=== PATIENT | female | born 1995 | race Caucasian/White ===

== ENCOUNTER 2018-03-22 08:59 | Outpatient (CLI) | payer OTHER, BC, SELFPAY ==
[2018-03-22 09:36] LABS: Abs Immature Grans 0.01 k/cumm (0.0-0.09); Absolute Basophil Count 0.01 k/cumm (0.0-0.2); Absolute Eosinophil Count 0.05 k/cumm (0.0-0.7); Absolute Lymphocyte Count 1.91 k/cumm (1.2-3.4); Absolute Monocyte Count 0.48 k/cumm (0.11-0.7); Absolute Neutrophil Count 3.91 k/cumm (1.2-6.7); Basophils % 0.2; Eosinophils % 0.8; HCT 40.7 % (36.0-46.0); HGB 13.7 g/dL (12.0-15.5); Immature Grans % 0.2; Mean Corp. HGB Concentration 33.7 g/dL (32.0-36.0); Mean Corpuscular Hemoglobin 28.9 pg (27.0-33.0); Mean Corpuscular Volume 85.9 fL (80-95); Monocytes % 7.5; Neutrophils % 61.3; Platelet Count 224 x1000/uL (130-400); RBC 4.74 m/cumm (4.00-5.20); RBC Distribution Width 12.6 % (11.7-14.6); White Blood Cell Count 6.37 k/cumm (4.4-10.8)
[2018-03-22 10:43] LABS: ESR 17 MM/HR (0-20)
[2018-03-22 11:32] LABS: ALT 36 U/L (12-78); AST 14 U/L (15-37); Albumin 4.1 g/dL (3.4-5.0); Alkaline Phosphatase 120 U/L (46-116); Anion Gap 10.2 mmol/L (3-11); BUN 13 mg/dL (7-18); Bilirubin, Total 0.3 mg/dL (0.2-1.0); CO2 26.8 mmol/L (21.0-32.0); CREATININE 0.94 mg/dL (0.55-1.02); Calcium 8.9 mg/dL (8.5-10.1); Chloride 103 mmol/L (98-107); Glucose 83 mg/dL (70-100); Potassium 4.1 mmol/L (3.5-5.1); Sodium 140 mmol/L (136-145); TSH (W/Ref FT4) 2.56 uIU/mL (0.358-3.74); Total Protein 7.4 g/dL (6.4-8.2)
[2018-03-24 12:19] LABS: IgA 167 mg/dL (85-499); Interpretation SEE COMMENTS; Tissue Transglutaminase IgA 2.6 U/mL (<4.0)
== END 2018-03-22 09:19 ==
PROVIDERS: PCP Nurse Practitioner Family; Visit Provider Family Medicine
DX: R19.7 Diarrhea, unspecified (principal)
CPT/HCPCS: 36415; 80053; 82784; 83516; 85652; 84443; 85025

== ENCOUNTER 2018-04-03 16:32 | Outpatient (REF) | payer OTHER, BC, SELFPAY ==
--- NOTE | 2018-04-03 13:30 | PAPFT_PTH ---
PATIENT: Oriana Augustin LOC: [facility] U#:[id number] AGE/SX: 23/F ROOM: RE04/03/[address]: SARAHI Mcgrath : 1995 BED: DIS: 04/03/2018 SPEC #: [id number] RECD: 04/03/18 18:16 STATUS: GARETH REJennifer #: [id number] NURIA: 04/03/18 13:[address]: Ronda Boyd DEPT: [facility] Cytology RECD BY: Ade Harrell ENTERED: 04/03/18 18:16 SP TYPE: PAPFT CHERYL DR: SARAHI Arevalo Tissues: 1 - CX/ENDOCX FOR PAP SMEARS Procedures: PAP THIN PREP/UVM Screening Comments: [id number]
== END 2018-04-03 16:52 ==
LOC: LBN 16:32
PROVIDERS: PCP Nurse Practitioner Family; Visit Provider Nurse Practitioner Family
DX: Z12.4 Encounter for screening for malignant neoplasm of cervix (principal); K58.9 Irritable bowel syndrome, unspecified
CPT/HCPCS: 87505; 88142; 83630; 87177

== ENCOUNTER 2018-06-04 20:32 | Outpatient (REF) | payer OTHER, BC, SELFPAY ==
[2018-06-04 21:38] LABS: Bilirubin Negative (Negative); Blood Trace-lysed (Negative); Clarity Clear; Glucose Negative (Negative); Ketones Negative (Negative); Leukocyte Esterase Negative (Negative); Nitrite Negative (Negative); Specific Gravity 1.025 (1.005-1.025); Urobilinogen 0.2 EU/dL (Up TO 0.2); pH 5.5 (5-8)
[2018-06-04 21:49] LABS: Bacteria Rare HPF (Negative); C & S Indicated? No; Casts Negative LPF (Negative); Crystals Negative HPF (Negative); Epithelial Cells Rare HPF (Negative); Mucus Negative (Negative); RBC 0-2 (0-2); WBC 0-2 HPF (0-5)
== END 2018-06-04 20:52 ==
LOC: LBN 20:32
PROVIDERS: PCP Nurse Practitioner Family; Visit Provider Nurse Practitioner Family
DX: R31.9 Hematuria, unspecified (principal)
CPT/HCPCS: 81003; 81015

== ENCOUNTER 2018-07-16 09:07 | Outpatient (CLI) | payer OTHER, SELFPAY ==
[2018-07-16 13:04] LABS: HCT 39.4 % (36.0-46.0); HGB 13.3 g/dL (12.0-15.5); Mean Corp. HGB Concentration 33.8 g/dL (32.0-36.0); Mean Corpuscular Hemoglobin 29.8 pg (27.0-33.0); Mean Corpuscular Volume 88.3 fL (80-95); Mean Platelet Volume 10.9 fL (8.0-11.0); Platelet Count 225 x1000/uL (130-400); RBC 4.46 m/cumm (4.00-5.20); RBC Distribution Width 12.3 % (11.7-14.6); White Blood Cell Count 7.24 k/cumm (4.4-10.8)
[2018-07-16 13:46] LABS: Ferritin 57 ng/mL (8-388)
== END 2018-07-16 09:27 ==
PROVIDERS: PCP Nurse Practitioner Family
DX: K62.5 Hemorrhage of anus and rectum (principal); R42 Dizziness and giddiness
CPT/HCPCS: 36415; 85027; 82728

== ENCOUNTER 2018-07-23 11:23 | Outpatient (CLI) | payer OTHER, BC, SELFPAY ==
[2018-07-23 11:56] LABS: HCT 40.3 % (36.0-46.0); HGB 13.7 g/dL (12.0-15.5)
== END 2018-07-23 11:43 ==
PROVIDERS: PCP Nurse Practitioner Family
DX: K62.5 Hemorrhage of anus and rectum (principal)
CPT/HCPCS: 36415; 85014; 85018

== ENCOUNTER 2018-09-22 17:12 | Emergency (ER) | payer OTHER, SELFPAY ==
[2018-09-22 17:48] VITALS: BP 126/78; PULSE 104; RESP 18; TEMP 36.7; O2SAT 95
--- NOTE | 2018-09-22 17:58 | W.ED.GENAD ---
Discharge Plan Disposition Patient Disposition: HOME Condition: Improving Discharge Details Chief Complaint: RespSymp Clinical Impression: Acute bronchitis Reason For Visit: cough and fever Primary Care Provider: Nishi Hoffman ED Provider: Aditya Cee Home Meds and New Rx's Prescriptions: New benzonatate [Tessalon Perles] 100 mg capsule 100 mg PO TID PRN (Reason: cough) Qty: 20 RF: 0 azithromycin 250 mg tablet 250 mg PO DAILY 4 Days Qty: 4 RF: 0 Continued norethindrone (contraceptive) 0.35 mg tablet 0.35 mg PO DAILY Qty: 84 RF: 3 hydroxyzine HCl 25 mg tablet 25 mg PO as directed PRNRF: 0 buspirone 10 mg tablet 10 mg PO BID RF: 0 amitriptyline 150 mg tablet 150 mg PO DAILY Qty: 90 RF: 3 Adult 50+ Probiotic 4 billion cell capsule PO DAILY RF: 0 nystatin 100,000 unit/gram powder 1 applic TP BID Qty: 60 RF: 2 docusate sodium [Stool Softener] 100 mg capsule 100 mg PO DAILY RF: 0 multivitamin [One Daily Multivitamin] tablet 1 tab PO DAILY RF: 0 Natural Fiber Supplement 3.4 gram powder in packet PO DAILY RF: 0 rizatriptan 5 mg tablet 5 mg PO PRN Qty: 12 RF: 5 Discharge Instructions Instructions: Acute Bronchitis (ED) Additional Instructions: [facility] with [facility] if not improving in 5-7 days time. Home to rest this evening. Small, frequent sips of fluids to maintain hydration. May use albuterol as instructed during times of illness. Tessalon as needed for cough. May use a teaspoon of honey at bedtime for cough Take azithromycin as prescribed. Return to the ER for any acute concern Medical Decision Making 23-year-old female presents from home complaining of 7 days of cough, congestion, fever and chills. 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 [place] worse today. Did not of syncope or any other concerning findings. Her exam is unremarkable. Consistent with viral URI with mild bouts of bronchospasm/paroxysms of cough. Cannot exclude underlying atypical bacterial infection. I will give her an albuterol inhaler, Tessalon Perles, and place her on a course of azithromycin HPI General Mode of arrival: ambulatory. Date/Time Provider Initiated Documentation: 09/22/18 17:50. Limitations to Documentation: no limitations. Information obtained by: patient. History of Present Illness 23 year old F presents to the emergency department with the chief complaint of Cough and fever times 7 days, described as moderate, Quality is described as aching, and is localized to the chest. Patient reports no radiation. Patient started experiencing this day(s) and it has been intermittent. No relieving factors improve symptom(s), No exacerbating factors reported . Patient notes fever/chills; denies nausea/vomiting and shortness of breath. Patient did receive the following treatments prior to arrival, none Related Data Home Medications Medication Instructions Recorded Confirmed amitriptyline 150 mg tablet 150 mg PO DAILY #90 tab-cap 03/21/18 09/22/18 norethindrone (contraceptive) 0.35 0.35 mg PO DAILY #84 tab 04/03/18 09/22/18 mg tablet lactobacillus combination no.9 4 PO DAILY cap 04/07/18 09/10/18 billion cell capsule hydroxyzine HCl 25 mg tablet 25 mg PO as directed PRN tab-cap 06/04/18 09/22/18 rizatriptan 5 mg tablet 5 mg PO PRN #12 tab-cap 06/23/18 09/22/18 nystatin 100,000 unit/gram topical 1 applic TP BID #60 gm 07/15/18 09/10/18 powder buspirone 10 mg tablet 10 mg PO BID tab 08/06/18 09/22/18 docusate sodium 100 mg capsule 100 mg PO DAILY 08/06/18 09/22/18 multivitamin tablet 1 tab PO DAILY 09/10/18 09/22/18 psyllium husk (aspartame) 3.4 gram PO DAILY 09/10/18 09/10/18 oral powder packet azithromycin 250 mg PO DAILY 4 Days #4 tab 09/22/18 benzonatate [Tessalon Perles] 100 mg PO TID PRN #20 cap 09/22/18 Previous Rx's Medication Instructions Recorded amitriptyline 150 mg tablet 150 mg PO DAILY #90 tab-cap 03/21/18 norethindrone (contraceptive) 0.35 0.35 mg PO DAILY #84 tab 04/03/18 mg tablet rizatriptan 5 mg tablet 5 mg PO PRN #12 tab-cap 06/23/18 nystatin 100,000 unit/gram topical 1 applic TP BID #60 gm 07/15/18 powder azithromycin 250 mg PO DAILY 4 Days #4 tab 09/22/18 benzonatate [Tessalon Perles] 100 mg PO TID PRN #20 cap 09/22/18 Allergies Allergy/AdvReac Type Severity Reaction Status Date / Time No Known Drug Allergies Allergy Verified 09/22/18 17:52 General Stated Complaint: RespSymp REYNA: 4 Review of Systems Review of Systems 6 systems reviewed and otherwise negative [facility] Medical History Obstructive sleep apnea (Chronic ~2018) Generalized anxiety disorder (Chronic) Migraine headache without aura (Chronic) Anal fissure (Inactive) IBS (irritable bowel syndrome) (Resolved) Kidney stone (Chronic) Surgical History Arthroplasty of knee (12/29/14) Tooth extraction Family History Mother No problems noted. Father Alcohol abuse Sister No problems noted. Brother No problems noted. Grandfather Diabetes Grandfather No problems noted. Grandmother No problems noted. Grandmother Depression Maternal History Neoplasm Paternal History No problems noted. Social History Smoking/Tobacco Use Status: Current-Occasional Tobacco Type: cigars Alcohol Intake: never Drug use: Never Substance use type: does not use Household members: other Details: 2 Pets and animals: Yes Pets and animals: dog(s) Duration: 15-30 minutes/day Frequency: 3-4 times per week Jeri/Congregation: [employer] Special jeri needs: No Seatbelt use: always Do you feel safe at home: Yes Do you feel safe in your relationship?: Yes Female Reproductive History Menstrual control method: pills Exam Narrative Exam Narrative: GEN: awake, alert, oriented 3. Pleasant, well groomed, interactive. HEAD: Normocephalic, atraumatic ENT: Mucous membranes moist, oropharynx unremarkable, External ear exam unremarkable EYES: PERRL, EOMI NECK: Full ROM, no HAFSA, no menigismus CHEST/RESP: Nontender, clear to auscultation bilateral, no wheeze/rhonchi/rales, cough noted CARDIOVASCULAR: RRR, no murmur, rub jericho. 2+ Rad pulse bilateral ABDOMEN: Soft, nontender, no mass. +Bowel sounds EXT: Full ROM, no edema, no rash Neuro: Grossly normal neurologic exam, conversant, interactive. Psych: Speech fluent, thoughts congruent, affect normal Course Vital Signs Temperature 36.7 C 09/22/18 17:48 Pulse 104 H 09/22/18 17:48 Respiratory Rate 18 09/22/18 17:48 Blood Pressure 126/78 09/22/18 17:48 Pulse Oximetry 95 09/22/18 17:48 Temperature 36.7 C 09/22/18 17:48 Temperature Source Tympanic 09/22/18 17:48 Pulse 104 H 09/22/18 17:48 Respiratory Rate 18 09/22/18 17:48 Respiratory Effort 09/22/18 17:56 Blood Pressure 126/78 09/22/18 17:48 Blood Pressure Position Sitting 09/22/18 17:48 Pulse Oximetry 95 09/22/18 17:48 Oxygen Delivery Method Room Air 09/22/18 17:48 Oxygen Flow Rate 0 09/22/18 17:48
--- NOTE | 2018-09-22 18:01 | ED.GENADUL_ITS ---
Discharge Plan Disposition Patient Disposition: HOME Condition: Improving Discharge Details Chief Complaint: RespSymp Clinical Impression: Acute bronchitis Reason For Visit: cough and fever Primary Care Provider: Nishi Hoffman ED Provider: Aditya Cee Home Meds and New Rx's Prescriptions: New benzonatate [Tessalon Perles] 100 mg capsule 100 mg PO TID PRN (Reason: cough) Qty: 20 RF: 0 azithromycin 250 mg tablet 250 mg PO DAILY 4 Days Qty: 4 RF: 0 Continued norethindrone (contraceptive) 0.35 mg tablet 0.35 mg PO DAILY Qty: 84 RF: 3 hydroxyzine HCl 25 mg tablet 25 mg PO as directed PRNRF: 0 buspirone 10 mg tablet 10 mg PO BID RF: 0 amitriptyline 150 mg tablet 150 mg PO DAILY Qty: 90 RF: 3 Adult 50+ Probiotic 4 billion cell capsule PO DAILY RF: 0 nystatin 100,000 unit/gram powder 1 applic TP BID Qty: 60 RF: 2 docusate sodium [Stool Softener] 100 mg capsule 100 mg PO DAILY RF: 0 multivitamin [One Daily Multivitamin] tablet 1 tab PO DAILY RF: 0 Natural Fiber Supplement 3.4 gram powder in packet PO DAILY RF: 0 rizatriptan 5 mg tablet 5 mg PO PRN Qty: 12 RF: 5 Discharge Instructions Instructions: Acute Bronchitis (ED) Additional Instructions: [facility] if not improving in 5-7 days time. Home to rest this evening. Small, frequent sips of fluids to maintain hydration. May use albuterol as instructed during times of illness. Tessalon as needed for cough. May use a teaspoon of honey at bedtime for cough Take azithromycin as prescribed. Return to the ER for any acute concern Medical Decision Making 23-year-old female presents from home complaining of 7 days of cough, congestion, fever and chills. 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 [place] worse today. Did not of syncope or any other concerning findings. Her exam is unremarkable. Consistent with viral URI with mild bouts of bronchospasm/paroxysms of cough. Cannot exclude underlying atypical bacterial infection. I will give her an albuterol inhaler, Tessalon Perles, and place her on a course of azithromycin HPI General Mode of arrival: ambulatory . Date/Time Provider Initiated Documentation: 09/22/18 17:50 . Limitations to Documentation: no limitations . Information obtained by: patient . History of Present Illness 23 year old F presents to the emergency department with the chief complaint of Cough and fever times 7 days, described as moderate, Quality is described as aching, and is localized to the chest. Patient reports no radiation. Patient started experiencing this day(s) and it has been intermittent. No relieving factors improve symptom(s), No exacerbating factors reported . Patient notes fever/chills; denies nausea/vomiting and shortness of breath. Patient did receive the following treatments prior to arrival, none Related Data Home Medications Medication Instructions Recorded Confirmed amitriptyline 150 mg tablet 150 mg PO DAILY #90 tab-cap 03/21/18 09/22/18 norethindrone (contraceptive) 0.35 0.35 mg PO DAILY #84 tab 04/03/18 09/22/18 mg tablet lactobacillus combination no.9 4 PO DAILY cap 04/07/18 09/10/18 billion cell capsule hydroxyzine HCl 25 mg tablet 25 mg PO as directed PRN tab-cap 06/04/18 09/22/18 rizatriptan 5 mg tablet 5 mg PO PRN #12 tab-cap 06/23/18 09/22/18 nystatin 100,000 unit/gram topical 1 applic TP BID #60 gm 07/15/18 09/10/18 powder buspirone 10 mg tablet 10 mg PO BID tab 08/06/18 09/22/18 docusate sodium 100 mg capsule 100 mg PO DAILY 08/06/18 09/22/18 multivitamin tablet 1 tab PO DAILY 09/10/18 09/22/18 psyllium husk (aspartame) 3.4 gram PO DAILY 09/10/18 09/10/18 oral powder packet azithromycin 250 mg PO DAILY 4 Days #4 tab 09/22/18 benzonatate [Tessalon Perles] 100 mg PO TID PRN #20 cap 09/22/18 Previous Rx's Medication Instructions Recorded amitriptyline 150 mg tablet 150 mg PO DAILY #90 tab-cap 03/21/18 norethindrone (contraceptive) 0.35 0.35 mg PO DAILY #84 tab 04/03/18 mg tablet rizatriptan 5 mg tablet 5 mg PO PRN #12 tab-cap 06/23/18 nystatin 100,000 unit/gram topical 1 applic TP BID #60 gm 07/15/18 powder azithromycin 250 mg PO DAILY 4 Days #4 tab 09/22/18 benzonatate [Tessalon Perles] 100 mg PO TID PRN #20 cap 09/22/18 Allergies Allergy/AdvReac Type Severity Reaction Status Date / Time No Known Drug Allergies Allergy Verified 09/22/18 17:52 General Stated Complaint: RespSymp REYNA: 4 Review of Systems Review of Systems 6 systems reviewed and otherwise negative [facility] Medical History Obstructive sleep apnea (Chronic ~2018) Generalized anxiety disorder (Chronic) Migraine headache without aura (Chronic) Anal fissure (Inactive) IBS (irritable bowel syndrome) (Resolved) Kidney stone (Chronic) Surgical History Arthroplasty of knee (12/29/14) Tooth extraction Family History Mother No problems noted. Father Alcohol abuse Sister No problems noted. Brother No problems noted. Grandfather Diabetes Grandfather No problems noted. Grandmother No problems noted. Grandmother Depression Maternal History Neoplasm Paternal History No problems noted. Social History Smoking/Tobacco Use Status: Current-Occasional Tobacco Type: cigars Alcohol Intake: never Drug use: Never Substance use type: does not use Household members: other Details: 2 Pets and animals: Yes Pets and animals: dog(s) Duration: 15-30 minutes/day Frequency: 3-4 times per week Jeri/Catholic: Pentecostal Special jeri needs: No Seatbelt use: always Do you feel safe at home: Yes Do you feel safe in your relationship?: Yes Female Reproductive History Menstrual control method: pills Exam Narrative Exam Narrative: GEN: awake, alert, oriented 3. Pleasant, well groomed, interactive. HEAD: Normocephalic, atraumatic ENT: Mucous membranes moist, oropharynx unremarkable, External ear exam unremarkable EYES: PERRL, EOMI NECK: Full ROM, no HAFSA, no menigismus CHEST/RESP: Nontender, clear to auscultation bilateral, no wheeze/rhonchi/rales, cough noted CARDIOVASCULAR: RRR, no murmur, rub jericho. 2+ Rad pulse bilateral ABDOMEN: Soft, nontender, no mass. +Bowel sounds EXT: Full ROM, no edema, no rash Neuro: Grossly normal neurologic exam, conversant, interactive. Psych: Speech fluent, thoughts congruent, affect normal Course Vital Signs Temperature 36.7 C 09/22/18 17:48 Pulse 104 H 09/22/18 17:48 Respiratory Rate 18 09/22/18 17:48 Blood Pressure 126/78 09/22/18 17:48 Pulse Oximetry 95 09/22/18 17:48 Temperature 36.7 C 09/22/18 17:48 Temperature Source Tympanic 09/22/18 17:48 Pulse 104 H 09/22/18 17:48 Respiratory Rate 18 09/22/18 17:48 Respiratory Effort 09/22/18 17:56 Blood Pressure 126/78 09/22/18 17:48 Blood Pressure Position Sitting 09/22/18 17:48 Pulse Oximetry 95 09/22/18 17:48 Oxygen Delivery Method Room Air 09/22/18 17:48 Oxygen Flow Rate 0 09/22/18 17:48
[2018-09-22] MEDS: Azithromycin 250 MG TAB 500 MG PO (18:19)
[2018-09-22] MEDS: Albuterol HFA 8 GM 60 PUFF INH IH (18:19)
== END 2018-09-22 18:25 | disposition home or self-care (01) ==
PROVIDERS: Emergency Provider Emergency Medicine; PCP Nurse Practitioner Family
DX: J21.9 Acute bronchiolitis, unspecified (principal)
CPT/HCPCS: 81025; 99283

== ENCOUNTER 2019-04-15 16:26 | Outpatient (REF) | payer OTHER, SELFPAY | END 2019-04-15 16:46 | LOC: LBN 16:26 | PROVIDERS: PCP Nurse Practitioner Family; Visit Provider Nurse Practitioner Family | DX: R35.0 Frequency of micturition (principal) | CPT/HCPCS: 87086 ==

== ENCOUNTER 2019-04-27 11:06 | Outpatient (CLI) | payer OTHER, SELFPAY ==
[2019-04-27 14:35] LABS: HCG Quant, Pregnancy 1932 mIU/mL (1-3)
== END 2019-04-27 11:26 ==
PROVIDERS: PCP Nurse Practitioner Family; Visit Provider Nurse Practitioner Family
DX: Z32.01 Encounter for pregnancy test, result positive (principal)
CPT/HCPCS: 36415; 84702

== ENCOUNTER 2019-06-15 14:16 | Outpatient (CLI) | payer OTHER, SELFPAY ==
[2019-06-15 14:56] LABS: Abs Immature Grans 0.02 k/cumm (0.0-0.09); Absolute Basophil Count 0.01 k/cumm (0.0-0.2); Absolute Eosinophil Count 0.04 k/cumm (0.0-0.7); Absolute Lymphocyte Count 1.64 k/cumm (1.2-3.4); Absolute Monocyte Count 0.61 k/cumm (0.11-0.7); Absolute Neutrophil Count 6.38 k/cumm (1.2-6.7); Basophils % 0.1; Eosinophils % 0.5; HCT 34.7 % (36.0-46.0); HGB 12.1 g/dL (12.0-15.5); Immature Grans % 0.2; Lymphocytes % 18.9; Mean Corp. HGB Concentration 34.9 g/dL (32.0-36.0); Mean Corpuscular Hemoglobin 30.1 pg (27.0-33.0); Mean Corpuscular Volume 86.3 fL (80-95); Mean Platelet Volume 10.9 fL (8.0-11.0); Neutrophils % 73.3; Platelet Count 234 x1000/uL (130-400); RBC 4.02 m/cumm (4.00-5.20); RBC Distribution Width 12.1 % (11.7-14.6)
[2019-06-15 15:37] LABS: TSH (W/Ref FT4) 2.09 uIU/mL (0.36-3.74)
[2019-06-16 10:54] LABS: Hepatitis B Surface Ag Negative (Negative); Hepatitis C Ab w Rflx HCV PCR Negative (Negative)
[2019-06-16 11:07] LABS: Rubella IgG Ab (UVM) Positive (See Note); Varicella IgG Antibody Negative (See Note)
[2019-06-16 12:41] LABS: HIV-1/2 Ag & Ab Screen Negative (Negative)
[2019-06-16 15:14] LABS: Syphilis Total Ab w/Reflex Nonreactive (Nonreactive)
== END 2019-06-15 14:36 ==
PROVIDERS: PCP Nurse Practitioner Family; Visit Provider Advanced Practice Midwife
DX: Z34.91 Encounter for supervision of normal pregnancy, unspecified, first trimester (principal); Z11.59 Encounter for screening for other viral diseases; Z11.4 Encounter for screening for human immunodeficiency virus [HIV]; Z01.84 Encounter for antibody response examination
CPT/HCPCS: 36415; 86787; 86803; 86850; 86900; 86901; 87340; 87389; 84443; 85025; 86762; 86780

== ENCOUNTER 2019-06-15 20:11 | Outpatient (REF) | payer OTHER, SELFPAY ==
[2019-06-15 16:46] LABS: *AMPHETAMINES SCREEN URINE Negative (Negative); *BARBITURATES SCREEN URINE Negative (Negative); *BENZODIAZEPINES SCREEN URINE Negative (Negative); Cannabinoids THC Negative (Negative); Cocaine Screen,Urine Negative (Negative); METHADONE URINE SCREEN Negative (Negative); OPIATES URINE SCREEN Negative (Negative); Tricyclic Antidepressants Negative (Negative)
[2019-06-16 14:30] LABS: Chlamydia Result Negative (Negative)
[2019-06-16 15:18] LABS: GC Result Negative (Negative)
[2019-06-19 08:18] LABS: Buprenorphine Negative; Norbuprenorphine Negative
== END 2019-06-15 20:31 ==
LOC: LBN 20:11
PROVIDERS: PCP Nurse Practitioner Family; Visit Provider Advanced Practice Midwife
DX: Z34.91 Encounter for supervision of normal pregnancy, unspecified, first trimester (principal); Z11.3 Encounter for screening for infections with a predominantly sexual mode of transmission
CPT/HCPCS: 80307; 87491; 87591; 87086

== ENCOUNTER 2019-06-16 01:52 | Outpatient (CLI) | payer OTHER, SELFPAY ==
[2019-06-16 09:15] LABS: Glucose,1 Hr (Glucola) 158 mg/dL (80-140)
== END 2019-06-16 02:12 ==
PROVIDERS: PCP Nurse Practitioner Family; Visit Provider Advanced Practice Midwife
DX: Z34.91 Encounter for supervision of normal pregnancy, unspecified, first trimester (principal)
CPT/HCPCS: 82950

== ENCOUNTER 2019-06-17 08:39 | Outpatient (CLI) | payer OTHER, SELFPAY | END 2019-06-17 08:59 | PROVIDERS: PCP Nurse Practitioner Family; Visit Provider Advanced Practice Midwife | DX: Z34.91 Encounter for supervision of normal pregnancy, unspecified, first trimester (principal) | CPT/HCPCS: 36415; 82951 ==

== ENCOUNTER 2019-06-26 07:48 | Outpatient (CLI) | payer OTHER, SELFPAY | END 2019-06-26 08:08 | LOC: LOS 07:49 → LBO 08:22 | PROVIDERS: PCP Nurse Practitioner Family; Visit Provider Advanced Practice Midwife | DX: Z34.91 Encounter for supervision of normal pregnancy, unspecified, first trimester (principal) | CPT/HCPCS: 36415; 82951 ==

== ENCOUNTER 2019-06-29 07:31 | Outpatient (CLI) | payer OTHER, SELFPAY | END 2019-06-29 07:51 | PROVIDERS: PCP Nurse Practitioner Family; Visit Provider Advanced Practice Midwife | DX: Z34.90 Encounter for supervision of normal pregnancy, unspecified, unspecified trimester (principal); Z68.36 Body mass index [BMI] 36.0-36.9, adult | CPT/HCPCS: 36415; 83036 ==

== ENCOUNTER 2019-08-11 01:57 | Outpatient (CLI) | payer BC, SELFPAY ==
--- NOTE | 2019-08-11 14:03 | DI.US_ITS ---
EXAM: US OB 2-3 TRIMESTER W MOD CLINICAL HISTORY: , Z34.90 TECHNIQUE: Ultrasound performed using standard protocol. COMPARISON: PELVIS ULTRASOUND *(P) from 09/01/2012 FINDINGS: The examination was severely limited due to position. cranial structures cannot be evaluated due to the lie of the fetus. Therefore biparietal diame ter and head circumference could not be used for evaluation of estimated gestational age. Placenta is posterior. Fetus is in the cephalic presentation. heart rate is 152 BPM. Amniotic fluid is within normal limits visually. The cranial facial structures could not be visualized. Four-chamber heart could not be visualized. The patient is scheduled to return on August 14 to complete survey. IMPRESSION: Incomplete survey due to the lie of the fetus. The patient is scheduled to return on August 14.
== END 2019-08-11 02:17 ==
PROVIDERS: PCP Nurse Practitioner Family; Visit Provider Advanced Practice Midwife
DX: Z34.92 Encounter for supervision of normal pregnancy, unspecified, second trimester (principal)
CPT/HCPCS: 76805

== ENCOUNTER 2019-08-14 02:11 | Outpatient (CLI) | payer BC, SELFPAY ==
--- NOTE | 2019-08-14 10:52 | DI.US_ITS ---
EXAM: US OB F/U FACIAL/LVOT/RVOT CLINICAL HISTORY: TO COMPLETE SURVEY, F/U HEAD/FACE TECHNIQUE: Ultrasound performed using standard protocol. COMPARISON: US OB 2-3 TRIMESTER W MOD from 08/11/2019 FINDINGS: Ob ultrasound performed utilizing limited 2nd trimester protocol to complete recent anomaly scr een, cardiac anatomy was confirmed on today's examination with 4 chamber heart view completed. cardiac rate 141 BPM. Posterior fossa structures not ideally visualized on today's examination but no gross abnormality of the cerebellum. Rescanning for facial structures and remainder of the intracranial scan as planned f or August 21.
== END 2019-08-14 02:31 ==
PROVIDERS: PCP Nurse Practitioner Family; Visit Provider Advanced Practice Midwife
DX: Z34.92 Encounter for supervision of normal pregnancy, unspecified, second trimester (principal); Z36.2 Encounter for other antenatal screening follow-up
CPT/HCPCS: 76815

== ENCOUNTER 2019-08-21 03:50 | Outpatient (CLI) | payer BC, SELFPAY ==
--- NOTE | 2019-08-21 | DI.US_ITS ---
EXAM: US OB F/U FACIAL/LVOT/RVOT CLINICAL HISTORY: F/U SURVEY, F/U FACIAL AND HEAD TECHNIQUE: Ultrasound performed using standard protocol. COMPARISON: US OB F/U FACIAL/LVOT/RVOT from 08/14/2019 FINDINGS: There is a single intrauterine gestation. The fetus is in the cephalic presentation. Ventricles are unremarkable. The nose, lips and palate are unremarkable. The placenta is posterior. Estimated gestational age is 22 weeks.
== END 2019-08-21 04:10 ==
PROVIDERS: PCP Nurse Practitioner Family; Visit Provider Advanced Practice Midwife
DX: Z34.92 Encounter for supervision of normal pregnancy, unspecified, second trimester (principal); Z36.2 Encounter for other antenatal screening follow-up; Z3A.22 22 weeks gestation of pregnancy
CPT/HCPCS: 76815

== ENCOUNTER 2019-10-06 10:34 | Outpatient (CLI) | payer BC, SELFPAY ==
[2019-10-06 13:39] LABS: HCT 32.9 % (36.0-46.0); Mean Corp. HGB Concentration 33.4 g/dL (32.0-36.0); Mean Corpuscular Hemoglobin 28.5 pg (27.0-33.0); Mean Corpuscular Volume 85.2 fL (80-95); Mean Platelet Volume 10.3 fL (8.0-11.0); Platelet Count 237 x1000/uL (130-400); RBC 3.86 m/cumm (4.00-5.20); RBC Distribution Width 12.9 % (11.7-14.6); White Blood Cell Count 10.08 k/cumm (4.4-10.8)
[2019-10-06 13:48] LABS: Glucose,1 Hr (Glucola) 145 mg/dL (80-140)
== END 2019-10-06 10:54 ==
PROVIDERS: PCP Nurse Practitioner Family; Visit Provider Advanced Practice Midwife
DX: Z34.93 Encounter for supervision of normal pregnancy, unspecified, third trimester (principal)
CPT/HCPCS: 36415; 82950; 85027; 86850; 90384

== ENCOUNTER 2019-11-02 20:44 | Observation (INO) | payer BC, SELFPAY ==
[2019-11-02 21:20] LABS: Fetal Fibronectin Negative (Negative)
== END 2019-11-02 21:30 | disposition home or self-care (01) ==
PROVIDERS: Admitting Provider Advanced Practice Midwife; PCP Nurse Practitioner Family; Visit Provider Advanced Practice Midwife
DX: O47.03 False labor before 37 completed weeks of gestation, third trimester (principal); Z3A.32 32 weeks gestation of pregnancy
CPT/HCPCS: 59025; 82731

== ENCOUNTER 2019-11-27 13:56 | Outpatient (CLI) | payer BC, SELFPAY ==
[2019-11-27 15:39] LABS: ROM Plus Negative
== END 2019-11-27 14:16 ==
PROVIDERS: PCP Nurse Practitioner Family; Visit Provider Advanced Practice Midwife
DX: Z03.71 Encounter for suspected problem with amniotic cavity and membrane ruled out (principal); Z3A.35 35 weeks gestation of pregnancy
CPT/HCPCS: 84112; 59025

== ENCOUNTER 2019-12-01 01:06 | Outpatient (CLI) | payer BC, SELFPAY ==
--- NOTE | 2019-12-01 08:30 | DI.US_ITS ---
EXAM: US OB ALYX WEIGHT CLINICAL HISTORY: ,BMI,Z68.36,Z34.90. TECHNIQUE: Transabdominal obstetrical ultrasound performed. COMPARISON: No exams were available for comparison FINDINGS: Number of fetuses: One. position: Vertex. heart rate: bpm. Placental location: Posterior. Grade 2. No evidence of previa. EFW: 2813 grms 40 % Composite Age: 36 weeks 1 day EDC: 28 December 2019 Heart Rate: 124BPM Amniotic fluid index: 15.6 cm. Amount of fluid is within normal limits. BIOMETRY: BPD: 90 millimeters, 36 weeks 4 days HC: 319 millimeters, 35 weeks 6 days AC: 319 millimeters, 35 weeks 6 days FL: 70 millimeters, 36 weeks 0 days IMPRESSION: 1. size and weight are within the expected range. DATA REPOSITORY:
== END 2019-12-01 01:26 ==
PROVIDERS: PCP Nurse Practitioner Family; Visit Provider Advanced Practice Midwife
DX: Z34.93 Encounter for supervision of normal pregnancy, unspecified, third trimester (principal); Z68.36 Body mass index [BMI] 36.0-36.9, adult; Z3A.36 36 weeks gestation of pregnancy
CPT/HCPCS: 76816

== ENCOUNTER 2019-12-01 01:42 | Outpatient (CLI) | payer BC, SELFPAY ==
[2019-12-01 17:24] LABS: *AMPHETAMINES SCREEN URINE Negative (Negative); *BARBITURATES SCREEN URINE Negative (Negative); *BENZODIAZEPINES SCREEN URINE Negative (Negative); Cannabinoids THC Negative (Negative); Cocaine Screen,Urine Negative (Negative); METHADONE URINE SCREEN Negative (Negative); OPIATES URINE SCREEN Negative (Negative)
[2019-12-01 17:27] LABS: Tricyclic Antidepressants Negative (Negative)
--- NOTE | 2019-12-02 13:20 | W.DIABETESNO ---
Date of service: 12/01/19 Time of Service: 14:00 Diabetes Note NOTE: Oriana is at 36 weeks with GDM. Met in office today to review her blood sugar and diet logs. She is following [id number] kcal GDM meal plan with consistent carbohydrAtes at meals and snacks. No formal exercise at this time. She does not take medications for GDM, well controlled with diet at this time. She is checking BS QID, fasting typically below 95 mg/dl, post prandial range from 110-130 mg/dl. She is doing well overall, very involved in helping her track her GDM and eating healthy. Reviewed diet log and provided advice on meal planning/problem solving. Encouraged her to continue with QID monitoring and follow GDM meal Plan provided. Education material on GDM and BS logs provided. We also reviewed benefits of breast feeding for herself and her baby. Action Plan: Oriana will continue to follow Diabetic Meal plan and will continue to check BS QID and bring to her appt. Time Spent in Nutritional Counseling and Treatment: 10 min spent face to face
[2019-12-05 07:24] LABS: Buprenorphine Negative; Norbuprenorphine Negative
== END 2019-12-01 02:02 ==
PROVIDERS: Advanced Practice Midwife; PCP Nurse Practitioner Family; Visit Provider Advanced Practice Midwife
DX: Z34.93 Encounter for supervision of normal pregnancy, unspecified, third trimester (principal); Z36.85 Encounter for antenatal screening for Streptococcus B
CPT/HCPCS: 80307; 87081; G0108

== ENCOUNTER 2019-12-03 23:08 | Outpatient (CLI) | payer BC, SELFPAY | END 2019-12-03 23:28 | PROVIDERS: PCP Nurse Practitioner Family; Visit Provider Advanced Practice Midwife | DX: V89.2XXA Person injured in unspecified motor-vehicle accident, traffic, initial encounter; Z03.79 Encounter for other suspected maternal and fetal conditions ruled out; Z3A.36 36 weeks gestation of pregnancy | CPT/HCPCS: 59025; G0378 ==

== ENCOUNTER 2019-12-04 16:59 | Outpatient (CLI) | payer BC, SELFPAY | END 2019-12-04 17:19 | PROVIDERS: PCP Nurse Practitioner Family; Visit Provider Advanced Practice Midwife | DX: O24.419 Gestational diabetes mellitus in pregnancy, unspecified control (principal); Z3A.36 36 weeks gestation of pregnancy | CPT/HCPCS: 85461; 86850; 86900; 86901; 86870 ==

== ENCOUNTER 2019-12-28 16:26 | Outpatient (CLI) | payer BC, SELFPAY | END 2019-12-28 16:46 | PROVIDERS: PCP Nurse Practitioner Family; Visit Provider Advanced Practice Midwife | DX: N89.8 Other specified noninflammatory disorders of vagina (principal); O24.410 Gestational diabetes mellitus in pregnancy, diet controlled; Z3A.40 40 weeks gestation of pregnancy | CPT/HCPCS: 59025; 87480; 87510; 87660 ==

== ENCOUNTER 2019-12-29 14:32 | Inpatient (IN) | payer BC, SELFPAY ==
[2019-12-29] MEDS: miSOPROStol 25 MCG TAB PO ×2 (17:03→21:12)
[2019-12-29] MEDS: Normal Saline Flush 10 ML SYR (18:15)
[2019-12-29 18:29] LABS: HGB 11.8 g/dL (12.0-15.5); Mean Corp. HGB Concentration 33.7 g/dL (32.0-36.0); Mean Corpuscular Hemoglobin 28.2 pg (27.0-33.0); Mean Corpuscular Volume 83.5 fL (80-95); Mean Platelet Volume 11.4 fL (8.0-11.0); Platelet Count 200 x1000/uL (130-400); RBC 4.19 m/cumm (4.00-5.20); White Blood Cell Count 9.35 k/cumm (4.4-10.8)
[2019-12-29] MEDS: Normal Saline 100 ML 200 ML (20:40)
[2019-12-29] MEDS: metroNIDAZOLE 500 MG TAB PO (21:11)
[2019-12-29] MEDS: Zolpidem 10 MG TAB PO (21:12)
[2019-12-29] MEDS: Cyproheptadine 4 MG TAB PO (21:12)
[2019-12-30] MEDS: Penicillin G POT. 3,000,000 UNITS in Normal Saline 50 ML 100 UNITS IVPB ×5 (01:13→20:31)
[2019-12-30] MEDS: Normal Saline Flush 10 ML SYR IVP ×4 (01:13→20:27)
[2019-12-30] MEDS: miSOPROStol 25 MCG TAB PO (02:30)
[2019-12-30] MEDS: miSOPROStol 25 MCG TAB 50 MCG PO (06:40)
[2019-12-30] MEDS: Acetaminophen 325 MG TAB 650 MG PO (07:33)
[2019-12-30] MEDS: Aspirin 81 MG CHEW CH (08:01)
[2019-12-30] MEDS: Magnesium Oxide 400 MG TAB PO (08:02)
[2019-12-30] MEDS: metroNIDAZOLE 500 MG TAB PO ×2 (08:02→20:27)
[2019-12-30] MEDS: Docusate Sodium 100 MG CAP 200 MG PO (08:03)
[2019-12-30 08:13] LABS: COVID-19 RT-PCR UVMMC Result Negative (Negative)
[2019-12-30] MEDS: miSOPROStol 50 MCG TAB PO ×2 (10:46→15:49)
[2019-12-30] MEDS: Zolpidem 10 MG TAB PO (20:27)
[2019-12-30] MEDS: Cyproheptadine 4 MG TAB PO (20:27)
[2019-12-31] MEDS: Penicillin G POT. 3,000,000 UNITS in Normal Saline 50 ML 100 UNITS IVPB ×3 (00:31→09:25)
[2019-12-31] MEDS: Normal Saline Flush 10 ML SYR IVP ×2 (00:32→08:18)
[2019-12-31] MEDS: Lactated Ringers 250 ML 500 ML IV (04:39)
[2019-12-31] MEDS: Bupivacaine 0.25% Pres-Free 10 ML VIAL EP (04:40)
[2019-12-31] MEDS: Lactated Ringers 500 ML IV (05:02)
[2019-12-31] MEDS: Oxytocin/Normal Saline 30 UNITS/500 ML BAG IV (06:18)
[2019-12-31] MEDS: Naloxone 0.4 MG/ML VIAL IVP ×2 (08:17→10:52)
[2019-12-31] MEDS: Lidocaine 1% Multi-Dose 20 ML VIAL IJ ×2 (11:00→11:25)
[2019-12-31] MEDS: Methylergonovine 0.2 MG/ML VIAL (11:25)
[2019-12-31] MEDS: Hamamelis Leaf/Glycerin 100 EACH BOX PR (13:12)
[2019-12-31] MEDS: Ibuprofen 600 MG TAB PO (19:40)
[2019-12-31] MEDS: Acetaminophen 325 MG TAB 650 MG PO (19:40)
[2019-12-31] MEDS: Cyproheptadine 4 MG TAB PO (23:15)
[2020-01-01] MEDS: Ibuprofen 600 MG TAB PO ×4 (02:41→22:02)
[2020-01-01] MEDS: Acetaminophen 325 MG TAB 650 MG PO ×4 (02:41→22:01)
[2020-01-01 06:47] LABS: HCT 31.2 % (36.0-46.0); Mean Corp. HGB Concentration 32.1 g/dL (32.0-36.0); Mean Corpuscular Hemoglobin 27.2 pg (27.0-33.0); Mean Platelet Volume 11.5 fL (8.0-11.0); Platelet Count 165 x1000/uL (130-400); RBC 3.67 m/cumm (4.00-5.20); RBC Distribution Width 15.2 % (11.7-14.6); White Blood Cell Count 8.67 k/cumm (4.4-10.8)
[2020-01-01] MEDS: Docusate Sodium 100 MG CAP PO (08:46)
[2020-01-01] MEDS: Varicella Virus Vaccine (Live) 1 ML IM (09:10)
[2020-01-01] MEDS: Cyproheptadine 4 MG TAB PO (22:01)
[2020-01-02] MEDS: Acetaminophen 325 MG TAB 650 MG PO (08:53)
[2020-01-02] MEDS: Ibuprofen 600 MG TAB PO (08:54)
== END 2020-01-02 14:00 | disposition home or self-care (01) | DRG 805 ==
PROVIDERS: Advanced Practice Midwife; Admitting Provider Advanced Practice Midwife; PCP Nurse Practitioner Family; Visit Provider Advanced Practice Midwife
DX: O24.420 Gestational diabetes mellitus in childbirth, diet controlled (principal); O75.3 Other infection during labor; Z37.0 Single live birth; O70.0 First degree perineal laceration during delivery; O69.81X0 Labor and delivery complicated by cord around neck, without compression, not applicable or unspecified; O99.824 Streptococcus B carrier state complicating childbirth; Z3A.40 40 weeks gestation of pregnancy; B96.89 Other specified bacterial agents as the cause of diseases classified elsewhere; O75.89 Other specified complications of labor and delivery; I95.2 Hypotension due to drugs; T41.3X5A Adverse effect of local anesthetics, initial encounter; Z23 Encounter for immunization
CPT/HCPCS: 36415; 85027; 86850; 86900; 86901; U0003; J2210; J2310; J2540; J3490

== ENCOUNTER 2020-02-12 02:15 | Outpatient (CLI) | payer BC, SELFPAY ==
[2020-02-12 10:59] LABS: GTT Comment See Comments
== END 2020-02-12 02:35 ==
PROVIDERS: PCP Nurse Practitioner Family; Visit Provider Advanced Practice Midwife
DX: O24.419 Gestational diabetes mellitus in pregnancy, unspecified control (principal)
CPT/HCPCS: 36415; 82951

== ENCOUNTER 2020-12-29 18:14 | Outpatient (REF) | payer BC, SELFPAY ==
[2020-12-29 13:09] LABS: Anion Gap 9.5 mmol/L (3-11); BUN 12 mg/dL (7-18); CO2 27.5 mmol/L (21.0-32.0); CREATININE 0.7 mg/dL (0.55-1.02); Calcium 8.7 mg/dL (8.5-10.1); Calculated LDL 138 mg/dL (<100); Chloride 105 mmol/L (98-107); Cholesterol 206 mg/dL (<200); Glucose 84 mg/dL (74-106); HDL Cholesterol 36 mg/dL (40-60); Potassium 4.3 mmol/L (3.5-5.1); Sodium 142 mmol/L (136-145); Triglyceride 163 mg/dL (<150)
[2020-12-29 13:11] LABS: Hemoglobin A1C 5.3 % (<5.7)
== END 2020-12-29 18:15 | disposition home or self-care (01) ==
LOC: LBN 18:14
PROVIDERS: PCP Nurse Practitioner Family; Visit Provider Nurse Practitioner Family
DX: Z00.00 Encounter for general adult medical examination without abnormal findings (principal); Z13.1 Encounter for screening for diabetes mellitus; Z13.220 Encounter for screening for lipoid disorders
CPT/HCPCS: 80048; 80061; 83036

== ENCOUNTER 2021-01-17 14:34 | Outpatient (REF) | payer BC, SELFPAY | END 2021-01-17 14:35 | disposition home or self-care (01) | LOC: LBN 14:34 | PROVIDERS: PCP Nurse Practitioner Family; Visit Provider Nurse Practitioner Family | DX: R30.0 Dysuria (principal) | CPT/HCPCS: 87086 ==

== ENCOUNTER 2021-01-22 23:56 | Emergency (ER) | payer BC, SELFPAY ==
--- NOTE | 2021-01-23 | DI.CT_ITS ---
Exam(s) CT RENAL COLIC WO EXAM: CT RENAL COLIC WO CLINICAL HISTORY: right and midline flank and back pain. TECHNIQUE: Imaging Protocol: Axial computed tomography images with coronal and sagittal reformatted images were created and reviewed CONTRAST MATERIAL: Intravenous: none Oral: None COMPARISON: CT ABD PELVIS WO CONTRAST from 09/07/2015 FINDINGS: VISUALIZED LUNG BASES: No nodules nor pleural effusions evident. ABDOMEN: There is no ascites. LIVER: There are no obvious focal hepatic lesions evident of this noninfused study. GALLBLADDER/BILIARY: No obvious gallbladder pathology. CBD is not dilated. PANCREAS: No evidence of pancreatic mass nor dilatation of the pancreatic duct. SPLEEN: Spleen is not enlarged. No obvious intrasplenic lesions. Splenule noted to the spleen is ag ain noted. ADRENALS: There are no significant adrenal masses. KIDNEYS:No cysts evident. No solid renal masses. No calculi nor hydronephrosis. . ABDOMINAL AORTA: Abdominal aorta is not enlarged. LYMPH NODES: There is no retroperitoneal nor paraaortic adenopathy. ABDOMINAL WALL: No evidence of significant anterior abdominal wall hernia. GI: There is no evidence of bowel obstruction, free air, nor abscess. PELVIS: LYMPH NODES: There is no intrapelvic nor inguinal adenopathy. GI: No evidence of appendicitis.No evidence of sigmoid diverticulitis. URINARY BLADDER: No calculi nor obvious masses evident REPRODUCTIVE: Uterus and ovaries appear age-appropriate. There is no free fluid in the cul-de-sac. OSSEOUS: No significant osseous lesions. However, the there is significant increase density on the iliac side of both sacroiliac joints consis tent with sacroiliitis. There is no ankylosis. These findings have progressed from prior study of 2 016. IMPRESSION: 1. No radiopaque urinary tract calculi and no evidence of urinary tract obstruction. 2. Bilateral sacroiliitis narrow evident. No ankylosis. RADIATION DOSE DELIVERED: 1,348.84mGy.cm Total DLP DATA REPOSITORY: All CT scans at this facility are submitted to the National Radiology Data Registry (NRDR) Dose Index Registry (DIR) with the [employer] (ACR). RADIATION OPTIMIZATION: All CT scans at this facility use at least one of these dose optimization te chniques: automated exposure control; mA and/or kV adjustment per patient size (includes targeted exa ms where dose is matched to clinical indication); or iterative reconstruction.
[2021-01-23 00:02] VITALS: BP 121/43; PULSE 90; RESP 17; TEMP 36.7; O2SAT 96
--- NOTE | 2021-01-23 00:08 | ED.GENADUL_ITS ---
Discharge Plan Disposition Patient Disposition: HOME Condition: Good Discharge Details Clinical Impression: Abdominal pain Primary Care Provider: Nishi Hoffman ED Provider: Caden Silva Home Meds and New Rx's Prescriptions: Continued prenat.vits,noemy,yll-htdt-ixxmi Tablet 1 tab PO DAILY RF: 0 sertraline 50 mg tablet 75 mg PO DAILY RF: 0 sulfamethoxazole-trimethoprim [Bactrim DS] 800-160 mg tablet 1 tab PO BID Qty: 14 RF: 0 Adult 50 Plus Probiotic 4 billion cell capsule 4 cell PO DAILY RF: 0 docusate sodium [Stool Softener] 100 mg capsule 100 mg PO DAILY PRNRF: 0 magnesium oxide 500 mg capsule 500 mg PO DAILY RF: 0 cyproheptadine 4 mg tablet 8 mg PO QHS Qty: 90 RF: 5 norethindrone (contraceptive) 0.35 mg tablet 0.35 mg PO DAILY Qty: 84 RF: 3 Discharge Instructions Instructions: Abdominal Pain (ED) Additional Instructions: At this time your CAT scan is reassuring. No signs of significant abnormality requiring surgical intervention. There is questionable slight thickening of your distal colon, however as your symptoms do not appear to be in that area at all it is likely secondary to under distention/having no stool in it. You are being sent home with pain pills to be used only as needed. If you notice any worsening of your symptoms, or any new symptoms such as vomiting, diarrhea, fever, chills, shortness of breath, chest pain, numbness, weakness, or fainting , please return immediately to the emergency department for reevaluation. Please follow up with your primary care provider as soon as possible for reassessment and reevaluation. As always, it was a pleasure participating in your medical care today. Referrals: Nishi Hoffman, YASMIN [Primary Care Provider] - Medical Decision Making This is a 25-year-old female with a past medical history of IBS, migraines, high cholesterol, previous kidney stone, who presents today for evaluation of flank and back pain. Patient states that for the last 3 days she has had mild midline back pain that slightly radiates through to the anterior abdomen and on the right flank. She denies any dysuria or hematuria at this time. About 6 days ago she was evaluated for mild frequency and dysuria at her OB office, at that time she was started on Bactrim and has completed the dose. This evening the pain got notably worse and she came to the ER for further assessment. She denies vomiting or diarrhea. She denies any vaginal discharge. She states that this feels different than her previous kidney stone. No other complaints at this time. No other modifying factors. Exam demonstrates mild right-sided CVA tenderness, no abdominal tenderness to speak of otherwise so. Differential includes urolithiasis, less likely pyelonephritis. Symptoms appear inconsistent with aneurysm or mesenteric ischemia. We will gently rehydrate, give Toradol, get a CAT scan/renal colic CT, monitor closely and reassess. 1:35 AM Laboratory work-up is returned notably unremarkable, no significant elevated white count, left shift or bandemia. Electrolytes stable, renal function good. Urinalysis shows mild amount of RBCs in the urine, no other significant abnormalities. No evidence of infection. CT scan negative for significant abnormality. No evidence of kidney stone or gallbladder pathology. The patient does have evidence of an under distended descending and sigmoid colon, with questionable thickening but likely secondary to underdistention. Repeat exam shows no signs of an acute surgical abdomen, patient's pain is notably improved but she still does have a mild ache. She does not want anything additional for pain at this time. Repeat abdominal exam shows no reproducible pain in the lower abdominal quadrants mid or upper abdominal quadrants at this time. Uncertain as to the exact etiology, but differential still remains for potentially passed kidney stone, mild cystitis. Symptoms are inconsistent with colitis though clinically at this time, additionally the patient states very clearly that this does not feel anything like her IBS with the past, or mid abdominal pain or lower abdominal pain. This time patient stable for discharge. We will give a few Leeds's to go home with in case the pain does come back, however I did discuss with her that return or worsening symptoms may require further evaluation. Patient will follow closely with PCP. Discussed red flags which to return. I have extensively reviewed the treatment plan and discharge instructions with the patient. I have addressed all patient concerns at this time. The patient was made aware of what symptoms to monitor for that would warrant a return to the emergency department. Discussed the plan with the patient, they demonstrate verbal understanding and agreement with our assessment and plan at this time. The documentation in this chart was dictated using [employer] dictation software. Please excuse any dictation errors. FINDINGS: Lungs: Lung bases clear. Liver: Liver dome partially excluded from view. Otherwise grossly unremarkable u nenhanced liver. Gallbladder and bile ducts: Normal appearing gallbladder. No calcified gallstones. No biliary dilatation. Pancreas: Grossly unremarkable unenhanced pancreas. Spleen: Grossly unremarkable unenhanced spleen. Adrenal glands: Normal appearing adrenal glands. Kidneys and ureters: Grossly unremarkable unenhanced kidneys. No radiopaque renal calculi or hydronephrosis. No obstructing ureteral stones. Stomach and bowel: No oral contrast. Stomach partially decompressed. No small bowel dilatation to suggest obstruction. Normal-appearing cecum, ascending colon, and transverse colon. Descending colon, sigmoid colon, and rectum almost completely evacuated of fecal material, collapsed, and apparently thick-walled. Artifact of incomplete distention? Acute segmental colitis/proctocolitis? No evidence of focal acute diverticulitis. Appendix: Normal appendix. Intraperitoneal space: No gross ascites or free air. Vasculature: Normal caliber abdominal aorta. Lymph nodes: No pathologically enlarged mesenteric, retroperitoneal, or pelvic sidewall lymph nodes. Urinary bladder: Urinary bladder partially collapsed but grossly unremarkable, as seen. Reproductive: Uterus and ovaries grossly unremarkable, as seen. Bones/joints: No acute fracture seen among the bones of the abdomen or pelvis. Moderate discogenic degeneration at L5-S1. Soft tissues: Small fat containing ventral hernia at the umbilicus. IMPRESSION: 1. Descending colon, sigmoid colon, and rectum almost completely evacuated of fecal material, collapsed, and apparently thick-walled. Artifact of incomplete distention or acute proctocolitis could have this appearance. Clinical correlation is recommended. 2. No radiopaque renal calculi or evidence of obstructive uropathy. 3. Normal appearing gallbladder. No calcified gallstones. No biliary dilatation. Thank you for allowing us to participate in the care of your patient. Dictated and Authenticated by: Jesse Bianchi MD 01/23/2021 1:09 AM Eastern Time ([place] & [place]) HPI General Date/Time Provider Initiated Documentation: 01/22/21 23:58 . HPI Narrative: This is a 25-year-old female with a past medical history of IBS, migraines, high cholesterol, previous kidney stone, who presents today for evaluation of flank and back pain. Patient states that for the last 3 days she has had mild midline back pain that slightly radiates through to the anterior abdomen and on the right flank. She denies any dysuria or hematuria at this time. About 6 days ago she was evaluated for mild frequency and dysuria at her OB office, at that time she was started on Bactrim and has completed the dose. This evening the pain got notably worse and she came to the ER for further assessment. She denies vomiting or diarrhea. She denies any vaginal discharge. She states that this feels different than her previous kidney stone. No other complaints at this time. No other modifying factors. Related Data Home Medications Medication Instructions Recorded Confirmed lactobacillus combination no.9 4 4 cell PO DAILY cap 04/07/18 01/23/21 billion cell capsule magnesium oxide 500 mg capsule 500 mg PO DAILY 04/15/19 01/23/21 docusate sodium 100 mg capsule 100 mg PO DAILY PRN 11/26/19 01/23/21 prenat.vits,noemy,zvr-kiaw-nawsj 1 tab PO DAILY 11/26/19 01/23/21 cyproheptadine 4 mg tablet 8 mg PO QHS #90 tab 07/11/20 01/23/21 norethindrone (contraceptive) 0.35 0.35 mg PO DAILY #84 tab 01/11/21 01/23/21 mg tablet sertraline 50 mg tablet 75 mg PO DAILY tab 01/17/21 01/23/21 sulfamethoxazole 800 1 tab PO BID #14 tab 01/17/21 01/23/21 mg-trimethoprim 160 mg tablet Previous Rx's Medication Instructions Recorded cyproheptadine 4 mg tablet 8 mg PO QHS #90 tab 07/11/20 norethindrone (contraceptive) 0.35 0.35 mg PO DAILY #84 tab 01/11/21 mg tablet sulfamethoxazole 800 1 tab PO BID #14 tab 01/17/21 mg-trimethoprim 160 mg tablet Allergies Allergy/AdvReac Type Severity Reaction Status Date / Time No Known Drug Allergies Allergy Verified 01/17/21 12:59 General Stated Complaint: Abd Prob REYNA: 3 Review of Systems All systems reviewed & are unremarkable except as noted in HPI and below PFSH Medical History Anal fissure Depressive disorder Generalized anxiety disorder Gestational diabetes Hyperlipidemia IBS (irritable bowel syndrome) Kidney stones Migraine headache without aura Obstructive sleep apnea PSG 09/19/17 Surgical History H/O cystoscopy (09/16/15) S/P right knee arthroscopy (12/29/14) with partial lateral meniscetomy, MCL graft; at [facility] Family History Mother No problems noted. Father Alcohol abuse Depression Sister Depression Sister No problems noted. Brother No problems noted. Maternal Grandfather Type 2 diabetes mellitus Maternal Grandmother Breast cancer Paternal Grandfather Celiac disease Paternal Grandmother Depression Migraines Son No problems noted. Social History Smoking/Tobacco Use Status: Current-Occasional Tobacco Type: cigarettes and cigars Quit status: has quit before Second Hand Exposure: Yes Smoking risk assessment performed?: Yes Alcohol Intake: current Alcohol Intake frequency: a few times a week Alcohol type: hard liquor Drug use: Never Substance use type: does not use Counseling given: No Counseling provided: none Caregiver/Support person: No Household members: spouse and children Housing: house Communication Needs: None Do you need help understanding health information?: Never current occupation: ADMINISTRATIVE AIDE Pets and animals: Yes Pets and animals: dog(s) Sexually active: Yes Do you think of yourself as: straight/heterosexual Current gender identity: female What is your relationship status?: How often do you talk on the phone with friends or family?: three or more times per week How often do you get together with friends or relatives?: three or more times per week How often do you attend amish or zoroastrian services?: 1-3 times per year Do you belong to any clubs or organized social groups?: no Panel score (0-1 are the most socially isolated patients): 2 Duration: < 15 minutes/day Frequency: 1-2 times per week Jeri/[employer]ist: [employer] Seatbelt use: sometimes Helmet use: Yes Helmet use: always Drive intox or ride w/intox ambulance driver paramedic: No Do you feel safe at home: Yes Do you feel safe in your relationship?: Yes Female Reproductive History Menstrual control method: pills History History 1 Para 1 Hx # Term Pregnancies 1 Multiple births 0 Hx # Pregnancies 0 Ectopic pregnancies 0 AB induced 0 Hx Number of Living Children 1 AB spontaneous 0 Past Pregnancies Del. Date GA/Weeks # Outcome Route Wgt Sex Labor Lgth Anesthes ia Location Prov Complic 12/31/19 40 No Successful vaginal 3912.234 g Male regional BRENDA Laws; Jarek Corbin MD present Delivery Date: 12/31/19 Tyler Castano, Maternal Diabetes Raven Guerrero Exam Narrative Exam Narrative: 1.Const: Well-nourished, Well-developed, appearing stated age 2.Eyes: PERRL, no conjunctival injection, and symmetrical lids. 3.ENT: Atraumatic external nose and ears. Moist MM. Neck: Symmetric, trachea midline, No thyromegaly. 4.CVS: +S1/S2, No murmurs or gallops. Peripheral pulses 2+ and equal in all extremities. Brisk capillary refill in all extremities. 5.RESP: Unlabored respiratory effort. Clear to auscultation bilaterally. No wheezes rales or rhonchi 6.GI: Soft, Nontender/Nondistended, No hepatosplenomegaly. No guarding or rebound. Minimal right-sided CVA tenderness. No pain at McBurney's point, negative Cordero sign. No pelvic tenderness. 7.MSK: Normocephalic/Atraumatic, Extremities w/o deformity or ttp No cyanosis or clubbing, Normal movement of all extremities, no midline thoracic or lumbar spine tenderness. 8.Skin: Warm, Dry. No rashes or lesions. 9.Neuro: manufacturing inspector II-XII grossly intact. Sensation grossly intact, no focal neurologic deficits. 10.Psych: (AAO) x3. Appropriate mood and affect Course Vital Signs Vital signs: Vital Signs Temperature 36.7 C 01/23/21 00:02 Pulse 90 01/23/21 00:02 Respiratory Rate 17 01/23/21 00:02 Blood Pressure 121/43 L 01/23/21 00:02 Pulse Oximetry 96 01/23/21 00:02 Temperature 36.7 C 01/23/21 00:02 Temperature Source Temporal Artery Scan 01/23/21 00:02 Pulse 90 01/23/21 00:02 Respiratory Rate 17 01/23/21 00:02 Blood Pressure 121/43 L 01/23/21 00:02 Blood Pressure Position Supine 01/23/21 00:02 Pulse Oximetry 96 01/23/21 00:02 Oxygen Delivery Method Room Air 01/23/21 00:02 Oxygen Flow Rate 0 01/23/21 00:02 Pain Level 4 01/23/21 00:02
[2021-01-23 00:20] LABS: Bilirubin Negative (Negative); Blood Moderate (Negative); Clarity Clear (Clear); Glucose Negative (Negative); Ketones Negative (Negative); Leukocyte Esterase Negative (Negative); Nitrite Negative (Negative); Specific Gravity >= 1.030 (1.005-1.025); Urobilinogen 0.2 EU/dL (Up TO 0.2)
[2021-01-23 00:23] LABS: WBC 0-2 HPF (0-5)
[2021-01-23 00:24] LABS: Bacteria Few HPF (Negative); C & S Indicated? No; Casts Negative LPF (Negative); Crystals Negative HPF (Negative); Epithelial Cells Few HPF (Negative); Mucus Negative (Negative)
[2021-01-23] MEDS: Ketorolac 30 MG/ML VIAL IVP (00:27)
[2021-01-23] MEDS: Normal Saline 1,000 ML 1000 ML IV (00:28)
[2021-01-23 00:36] LABS: Abs Immature Grans 0.04 10^3/uL (0.0-0.06); Absolute Basophil Count 0.03 10^3/uL (0.0-0.2); Absolute Eosinophil Count 0.11 10^3/uL (0.0-0.7); Absolute Lymphocyte Count 2.29 10^3/uL (1.2-3.4); Absolute Monocyte Count 0.64 10^3/uL (0.1-0.8); Absolute Neutrophil Count 7.89 10^3/uL (1.2-6.7); Basophils % 0.3; HCT 37.3 % (36.0-46.0); HGB 12.4 g/dL (11.2-15.7); Immature Grans % 0.4; Lymphocytes % 20.8; MCH 29.1 pg (27.0-33.0); MCHC 33.2 % (32.0-36.0); MCV 87.6 fL (80-95); MPV 10.5 fL (8.0-11.0); Monocytes % 5.8; Neutrophils % 71.7; Nucleated RBC 0 %; Platelet Count 232 10^3/uL (130-400); RBC 4.26 10^6/uL (3.93-5.22); RDW 12.3 % (11.7-14.6); RDW-SD 39.2 fL
[2021-01-23 00:48] LABS: ALT 46 U/L (14-59); AST 25 U/L (15-37); Albumin 4.1 g/dL (3.4-5.0); Alkaline Phosphatase 105 U/L (46-116); Anion Gap 9.3 mmol/L (3-11); BUN 17 mg/dL (7-18); Bilirubin, Total 0.1 mg/dL (0.2-1.0); CO2 26.7 mmol/L (21.0-32.0); CREATININE 0.8 mg/dL (0.55-1.02); Calcium 8.9 mg/dL (8.5-10.1); Chloride 102 mmol/L (98-107); Glucose 96 mg/dL (74-106); Lipase 110 U/L (73-393); Potassium 3.7 mmol/L (3.5-5.1); Sodium 138 mmol/L (136-145); Total Protein 7.6 g/dL (6.4-8.2)
--- NOTE | 2021-01-23 01:10 | DI.VRAD_ITS ---
PROCEDURE INFORMATION: Exam: CT Abdomen And Pelvis Without Contrast Exam date and time: 01/23/2021 12:08 AM Age: 25 years old Clinical indication: Abdominal pain and other: R flank; Localized; Patient HX: Right and midline flank and back pain TECHNIQUE: Imaging protocol: Computed tomography of the abdomen and pelvis without contrast. Radiation optimization: All CT scans at this facility use at least one of these dose optimization techniques: automated exposure control; mA and/or kV adjustment per patient size (includes targeted exams where dose is matched to clinical indication); or iterative reconstruction. COMPARISON: CT ABD PELVIS WO CONTRAST 09/07/2015 9:10 AM FINDINGS: Lungs: Lung bases clear. Liver: Liver dome partially excluded from view. Otherwise grossly unremarkable unenhanced liver. Gallbladder and bile ducts: Normal appearing gallbladder. No calcified gallstones. No biliary dilatation. Pancreas: Grossly unremarkable unenhanced pancreas. Spleen: Grossly unremarkable unenhanced spleen. Adrenal glands: Normal appearing adrenal glands. Kidneys and ureters: Grossly unremarkable unenhanced kidneys. No radiopaque renal calculi or hydronephrosis. No obstructing ureteral stones. Stomach and bowel: No oral contrast. Stomach partially decompressed. No small bowel dilatation to suggest obstruction. Normal-appearing cecum, ascending colon, and transverse colon. Descending colon, sigmoid colon, and rectum almost completely evacuated of fecal material, collapsed, and apparently thick-walled. Artifact of incomplete distention? Acute segmental colitis/proctocolitis? No evidence of focal acute diverticulitis. Appendix: Normal appendix. Intraperitoneal space: No gross ascites or free air. Vasculature: Normal caliber abdominal aorta. Lymph nodes: No pathologically enlarged mesenteric, retroperitoneal, or pelvic sidewall lymph nodes. Urinary bladder: Urinary bladder partially collapsed but grossly unremarkable, as seen. Reproductive: Uterus and ovaries grossly unremarkable, as seen. Bones/joints: No acute fracture seen among the bones of the abdomen or pelvis. Moderate discogenic degeneration at L5-S1. Soft tissues: Small fat containing ventral hernia at the umbilicus. IMPRESSION: 1. Descending colon, sigmoid colon, and rectum almost completely evacuated of fecal material, collapsed, and apparently thick-walled. Artifact of incomplete distention or acute proctocolitis could have this appearance. Clinical correlation is recommended. 2. No radiopaque renal calculi or evidence of obstructive uropathy. 3. Normal appearing gallbladder. No calcified gallstones. No biliary dilatation. Dictated and Authenticated by: Jesse Bianchi MD. Ordering:PATI Negrete MD
[2021-01-23 01:13] VITALS: BP 114/61; PULSE 82; RESP 17; O2SAT 98
== END 2021-01-23 01:36 | disposition home or self-care (01) ==
PROVIDERS: Emergency Provider Student in an Organized Health Care Education/Training Program; PCP Nurse Practitioner Family
DX: R10.11 Right upper quadrant pain (principal); Z87.442 Personal history of urinary calculi
CPT/HCPCS: 36415; 80053; 81025; 83690; 96361; 96374; 99284; 74176; 81003; 81015; 85025; 99283; J1885

== ENCOUNTER 2021-01-30 19:11 | Outpatient (REF) | payer BC, SELFPAY ==
[2021-01-30 17:53] LABS: Bilirubin Negative (Negative); Blood Small (Negative); Clarity Sl Cloudy (Clear); Glucose Negative (Negative); Ketones Negative (Negative); Leukocyte Esterase Negative (Negative); Nitrite Negative (Negative); Specific Gravity 1.025 (1.005-1.025); Urobilinogen 0.2 EU/dL (Up TO 0.2)
[2021-01-30 18:02] LABS: Bacteria Negative HPF (Negative); C & S Indicated? No; Casts Negative LPF (Negative); Crystals Negative HPF (Negative); Epithelial Cells Few HPF (Negative); Mucus Negative (Negative)
== END 2021-01-30 19:12 | disposition home or self-care (01) ==
LOC: LBN 19:11
PROVIDERS: PCP Nurse Practitioner Family; Visit Provider Nurse Practitioner Family
DX: R10.9 Unspecified abdominal pain (principal); R82.998 Other abnormal findings in urine
CPT/HCPCS: 81003; 81015

== ENCOUNTER 2021-01-31 17:55 | Outpatient (CLI) | payer BC, SELFPAY ==
[2021-01-31 14:48] LABS: ESR 8 mm/hr (0-20)
== END 2021-01-31 17:56 | disposition home or self-care (01) ==
LOC: LBO 17:55
PROVIDERS: PCP Nurse Practitioner Family; Visit Provider Nurse Practitioner Family
DX: R10.9 Unspecified abdominal pain (principal)
CPT/HCPCS: 36415; 85652; 86140

== ENCOUNTER 2021-02-02 13:00 | Outpatient (CLI) | payer BC, SELFPAY ==
[2021-02-02 13:12] LABS: Source Nasal/Nares
[2021-02-02 16:10] LABS: COVID-19 PCR Negative (Negative)
== END 2021-02-02 13:01 | disposition home or self-care (01) ==
PROVIDERS: PCP Nurse Practitioner Family; Visit Provider Family Medicine
DX: Z20.822 Contact with and (suspected) exposure to COVID-19 (principal)
CPT/HCPCS: 87635

== ENCOUNTER 2021-02-23 09:53 | Outpatient (REF) | payer BC, SELFPAY ==
--- NOTE | 2021-02-23 09:00 | PAPFT_PTH ---
PATIENT: Oriana Augustin LOC: [facility] U#:[id number] AGE/SX: 26/F ROOM: RE02/23/[address]: SARAHI Mcgrath : 1995 BED: DIS: 02/23/2021 SPEC #: [id number] RECD: 02/23/21 13:13 STATUS: GARETH REQ #: [id number] NURIA: 02/23/21 09:[address]: Ronda Boyd DEPT: [facility] Cytology RECD BY: Ade Harrell ENTERED: 02/23/21 13:14 SP TYPE: PAPFT OTHR DR: SARAHI Arevalo Tissues: 1 - CX/ENDOCX FOR PAP SMEARS Procedures: PAP THIN PREP/[facility] Screening Comments: [id number]
== END 2021-02-23 09:54 | disposition home or self-care (01) ==
LOC: LBN 09:53
PROVIDERS: PCP Nurse Practitioner Family; Visit Provider Nurse Practitioner Family
DX: Z12.4 Encounter for screening for malignant neoplasm of cervix (principal)
CPT/HCPCS: 88142

== ENCOUNTER 2021-09-25 10:02 | Outpatient (CLI) | payer BC, SELFPAY ==
[2021-09-25 08:51] LABS: HCG Quant, Pregnancy < 1 mIU/mL (1-3)
== END 2021-09-25 10:03 | disposition home or self-care (01) ==
LOC: LBO 10:07
PROVIDERS: PCP Nurse Practitioner Family; Visit Provider Advanced Practice Midwife
DX: N93.8 Other specified abnormal uterine and vaginal bleeding (principal)
CPT/HCPCS: 36415; 84702

== ENCOUNTER 2021-11-21 18:37 | Outpatient (CLI) | payer BC, SELFPAY ==
[2021-11-21 16:43] LABS: HCG Quant, Pregnancy 56 mIU/mL (1-3)
== END 2021-11-21 18:38 | disposition home or self-care (01) ==
LOC: LBO 18:38
PROVIDERS: PCP Nurse Practitioner Family; Visit Provider Advanced Practice Midwife
DX: N92.5 Other specified irregular menstruation (principal)
CPT/HCPCS: 36415; 84702

== ENCOUNTER 2021-11-30 03:11 | Outpatient (CLI) | payer BC, SELFPAY ==
[2021-11-30 10:05] LABS: HCG Quant, Pregnancy 950 mIU/mL (1-3)
== END 2021-11-30 03:12 | disposition home or self-care (01) ==
LOC: LBO 03:12
PROVIDERS: PCP Nurse Practitioner Family; Visit Provider Advanced Practice Midwife
DX: N92.5 Other specified irregular menstruation (principal)
CPT/HCPCS: 36415; 84702

== ENCOUNTER 2021-12-07 16:49 | Outpatient (REF) | payer BC, SELFPAY | END 2021-12-07 16:50 | disposition home or self-care (01) | LOC: LBN 16:49 | PROVIDERS: PCP Nurse Practitioner Family; Visit Provider Advanced Practice Midwife | DX: O26.891 Other specified pregnancy related conditions, first trimester (principal); R30.0 Dysuria; R10.9 Unspecified abdominal pain; N89.8 Other specified noninflammatory disorders of vagina; Z3A.01 Less than 8 weeks gestation of pregnancy | CPT/HCPCS: 87086; 87480; 87510; 87660 ==

== ENCOUNTER 2022-01-09 03:33 | Outpatient (CLI) | payer BC, SELFPAY ==
[2022-01-09 12:59] LABS: Abs Immature Grans 0.03 10^3/uL (0.0-0.06); Absolute Basophil Count 0.02 10^3/uL (0.0-0.2); Absolute Eosinophil Count 0.04 10^3/uL (0.0-0.7); Absolute Lymphocyte Count 1.63 10^3/uL (1.2-3.4); Absolute Monocyte Count 0.48 10^3/uL (0.1-0.8); Absolute Neutrophil Count 6.38 10^3/uL (1.2-6.7); Basophils % 0.2; Eosinophils % 0.5; HGB 11.5 g/dL (11.2-15.7); Immature Grans % 0.3; MCH 28.1 pg (27.0-33.0); MCHC 32.9 % (32.0-36.0); MCV 86 fL (80-95); MPV 11.5 fL (8.0-11.0); Monocytes % 5.6; Neutrophils % 74.4; Platelet Count 214 10^3/uL (130-400); RBC 4.09 10^6/uL (3.93-5.22); RDW 12.6 % (11.7-14.6); RDW-SD 39.1 fL; WBC 8.58 10^3/uL (4.4-10.8)
[2022-01-09 13:00] LABS: Glucose,1 Hr (Glucola) 85 mg/dL (80-140)
[2022-01-09 13:28] LABS: TSH (W/Ref FT4) 2.01 uIU/mL (0.36-3.74)
[2022-01-10 10:29] LABS: Hepatitis B Surface Ag Negative (Negative)
[2022-01-10 11:22] LABS: HIV-1/2 Ag & Ab Screen Negative (Negative)
[2022-01-10 11:26] LABS: Varicella IgG Antibody Positive (See Note)
[2022-01-10 11:32] LABS: Rubella IgG Ab (UVM) Positive (See Note)
[2022-01-10 13:13] LABS: Hepatitis C Ab w Rflx HCV PCR Negative (Negative)
[2022-01-10 22:01] LABS: Syphilis IgG w/Reflex Nonreactive (Nonreactive)
== END 2022-01-09 03:34 | disposition home or self-care (01) ==
LOC: LBO 03:33
PROVIDERS: Advanced Practice Midwife; PCP Nurse Practitioner Family; Visit Provider Advanced Practice Midwife
DX: O99.211 Obesity complicating pregnancy, first trimester (principal); Z86.32 Personal history of gestational diabetes; Z3A.10 10 weeks gestation of pregnancy
CPT/HCPCS: 36415; 82950; 86787; 86803; 86850; 86900; 86901; 87340; 87389; 84443; 85025; 86762; 86780

== ENCOUNTER 2022-01-09 14:04 | Outpatient (REF) | payer BC, SELFPAY ==
[2022-01-09 16:01] LABS: *AMPHETAMINES SCREEN URINE Negative (Negative); *BARBITURATES SCREEN URINE Negative (Negative); *BENZODIAZEPINES SCREEN URINE Negative (Negative); Cannabinoids THC Negative (Negative); Cocaine Screen,Urine Negative (Negative); METHADONE URINE SCREEN Negative (Negative); OPIATES URINE SCREEN Negative (Negative)
[2022-01-09 16:25] LABS: Tricyclic Antidepressants Negative (Negative)
[2022-01-10 22:28] LABS: Chlamydia Result Negative (Negative); GC Result Negative (Negative)
[2022-01-17 10:55] LABS: Buprenorphine Negative ng/mL (Cutoff: 5.0); Norbuprenorphine Negative ng/mL (Cutoff: 2.5)
== END 2022-01-09 14:05 | disposition home or self-care (01) ==
LOC: LBN 14:04
PROVIDERS: PCP Nurse Practitioner Family; Visit Provider Advanced Practice Midwife
DX: N89.8 Other specified noninflammatory disorders of vagina (principal); Z34.91 Encounter for supervision of normal pregnancy, unspecified, first trimester; Z3A.10 10 weeks gestation of pregnancy; Z86.32 Personal history of gestational diabetes
CPT/HCPCS: 80307; 87491; 87591; 87086; 87480; 87510; 87660

== ENCOUNTER 2022-05-03 15:41 | Outpatient (REF) | payer BC, SELFPAY | END 2022-05-03 15:42 | disposition home or self-care (01) | LOC: LBN 15:41 | PROVIDERS: PCP Nurse Practitioner Family; Visit Provider Advanced Practice Midwife | DX: O26.899 Other specified pregnancy related conditions, unspecified trimester (principal); R30.0 Dysuria | CPT/HCPCS: 87086; 87480; 87510; 87660 ==

== ENCOUNTER 2022-05-17 04:47 | Outpatient (CLI) | payer BC, SELFPAY ==
[2022-05-17 10:36] LABS: HCT 32.8 % (36.0-46.0); HGB 10.6 g/dL (11.2-15.7); MCH 27.5 pg (27.0-33.0); MCHC 32.3 % (32.0-36.0); MCV 85 fL (80-95); MPV 10.5 fL (8.0-11.0); Platelet Count 203 10^3/uL (130-400); RBC 3.86 10^6/uL (3.93-5.22); RDW 13.5 % (11.7-14.6); RDW-SD 41.6 fL; WBC 7.68 10^3/uL (4.4-10.8)
[2022-05-17 10:48] LABS: Glucose,1 Hr (Glucola) 114 mg/dL (80-140)
== END 2022-05-17 04:48 | disposition home or self-care (01) ==
LOC: LBO 04:47
PROVIDERS: PCP Nurse Practitioner Family; Visit Provider Advanced Practice Midwife
DX: O26.893 Other specified pregnancy related conditions, third trimester (principal); Z67.91 Unspecified blood type, Rh negative; Z34.93 Encounter for supervision of normal pregnancy, unspecified, third trimester
CPT/HCPCS: 36415; 82950; 85027; 86850; 90384

== ENCOUNTER 2022-05-17 16:35 | Outpatient (REF) | payer BC, SELFPAY ==
[2022-05-18 17:22] LABS: HSV 1 DNA Result Negative (Negative); HSV 2 DNA Result Negative (Negative)
== END 2022-05-17 16:36 | disposition home or self-care (01) ==
LOC: LBN 16:35
PROVIDERS: PCP Nurse Practitioner Family; Visit Provider Advanced Practice Midwife
DX: N90.89 Other specified noninflammatory disorders of vulva and perineum (principal); N89.8 Other specified noninflammatory disorders of vagina
CPT/HCPCS: 87529; 87480; 87510; 87660

== ENCOUNTER → 2022-06-14 00:59 | Outpatient (CLI) | payer BC, SELFPAY ==
--- NOTE | 2022-06-14 07:15 | DI.US_ITS ---
Exam(s) US OB ALYX WEIGHT EXAM: US OB ALYX WEIGHT CLINICAL HISTORY: f/u growth at 32 weeks,h/o covid,u07.1,O98.512. TECHNIQUE: Transabdominal obstetrical ultrasound performed. COMPARISON: US US OB 2-3 TRIMESTER from 03/08/2022 FINDINGS: Number of fetuses: 1 position: Cephalic. Placental location:There is a grade 1 anterior placenta. No evidence of previa. BIOMETRIC DATA: BPD: 8.41cm, 33weeks 6days HC: 32.33cm,36weeks 4days AC: 31.16cm,35weeks 1day FL: 6.7cm,34weeks 3days EFW:2,555.58g,5lb 10.55oz,97% Composite Age:35weeks BOB:07/19/2021 Heart Rate: 151bpm Amniotic fluid index:16.74cm. Visually, amount of fluid is within normal limits. IMPRESSION: 1. Single live intrauterine gestation as above. 2. Estimated weight is 2556gms. This is the 97th percentile. 3. Amniotic fluid index is 16.7 cm. Visually within normal limits. DATA REPOSITORY:
== END ==
PROVIDERS: PCP Nurse Practitioner Family; Visit Provider Advanced Practice Midwife
DX: O98.513 Other viral diseases complicating pregnancy, third trimester (principal); U07.1 COVID-19
CPT/HCPCS: 76816

== ENCOUNTER 2022-07-12 14:33 | Outpatient (REF) | payer BC, SELFPAY ==
[2022-07-12 16:00] LABS: *AMPHETAMINES SCREEN URINE Negative (Negative); *BARBITURATES SCREEN URINE Negative (Negative); *BENZODIAZEPINES SCREEN URINE Negative (Negative); Cannabinoids THC Negative (Negative); Cocaine Screen,Urine Negative (Negative); METHADONE URINE SCREEN Negative (Negative); OPIATES URINE SCREEN Negative (Negative)
[2022-07-12 16:10] LABS: Tricyclic Antidepressants Negative (Negative)
[2022-07-20 11:15] LABS: Buprenorphine Negative ng/mL (Cutoff: 5.0); Norbuprenorphine Negative ng/mL (Cutoff: 2.5)
== END 2022-07-12 14:34 | disposition home or self-care (01) ==
LOC: LBN 14:33
PROVIDERS: PCP Nurse Practitioner Family; Visit Provider Advanced Practice Midwife
DX: Z34.93 Encounter for supervision of normal pregnancy, unspecified, third trimester (principal)
CPT/HCPCS: 80307; 80348; 87081

== ENCOUNTER 2022-07-27 10:41 | Outpatient (REF) | payer BC, SELFPAY | END 2022-07-27 10:42 | disposition home or self-care (01) | LOC: LBN 10:41 | PROVIDERS: PCP Nurse Practitioner Family; Visit Provider Nurse Practitioner Family | DX: J02.9 Acute pharyngitis, unspecified (principal) | CPT/HCPCS: 87070 ==

== ENCOUNTER 2022-07-29 06:12 | Inpatient (IN) | payer BC, SELFPAY ==
[2022-07-29] VITALS (26 sets, daily range): BP systolic 94–151; BP diastolic 47–80; PULSE 79–104; RESP 16–18; TEMP 36.3–37; O2SAT 90–100
--- NOTE | 2022-07-29 07:30 | W.PM.OBHPL1 ---
Date of service: 07/29/22 Time of Service: 07:30 Assessment and Plan Assessment and plan (1) Uterine contractions: Status: Acute Assessment and plan: 1. Contractions started 0130 7-10 minutes apart, now 4 minutes apart and increased discomfort, mcintyre score 7 2. Due to GBS positive status will admit, begin IV antibiotics and monitor progress 3. Difficult to maintain tracing due to maternal body habitus and movement, will attempt to use Novii 4. CBC, type and screen and COVID/Flu/RSV nasopharyngeal culture obtained (due to current URI, she tested negative 2 days ago at [facility]) 5. Discussed possible shoulder dystocia if this baby is bigger than last and some increased risk for PPH and management techniques. 6. Will reassess as needed. FACUNDO (2) Group B Streptococcus carrier, +RV culture, currently : Status: Acute Assessment and plan: 1. Will obtain IV access and begin GBS prophylaxis as ordered with PCN. FACUNDO (3) URI (upper respiratory infection): Status: Acute Assessment and plan: 1. Green nasal discharge, recent COVID and Flu negative at [facility] 07/27/22, repeat COVID, flu and RSV obtained. OB-HPI Labor/Delivery History of Present Illness Reason for Visit: Rule out labor Chief Complaint: Uterine Contractions (began at 0130 today). BOB Calculator Estimated Delivery Date Method Current WG Current Estimate 08/06/22 Ultrasound #1 38w 6d Other Estimates 07/28/22 LMP (Certain) 40w 1d History of Present Expected Delivery Route/Plan - CNM FOB/ - Kishore Augustin (2nd child together) BB no circ Jeremias Hopes to use tub for labor, desires nitrous , open to epidural Support in labor - Kishore GBS positive- prophylaxis in labor Specific Issues/Plan 1. BMI 43 & previous GDM diet controlled, early glucola=85 2a. glucose at 28 weeks 114. 2. Will start low dose ASA @ 12 wks d/t BMI of 43 and fam hx of pre-e 3. Declines SMA, CF, Panorama and or AFP testing 4. Rh neg, RhoGam at 28 wks done 05/17/22 5. COVID + mild symptoms 02/27, Paxlovid 03/01; US 32 wks: EFW 97th% ALYX 16 6. Desires to sign TL consent in event of unscheduled C/S, Assessment: History Reviewed & Current Informed Consent Informed Consent: Augmentation of Labor, Risk,Benefits,Alternatives Discussed and Other (COVID,Flu, RSV culture) Review of Systems All systems reviewed & are unremarkable except as noted in HPI and below Genitourinary Comments: regular uterine contractions since 0130 and reported bloody show. Denies ROM. PFSH All Active Problems (Updated 07/29/22 @ 08:01 by Glo Holt CNM) URI (upper respiratory infection) (Acute) Group B Streptococcus carrier, +RV culture, currently (Acute) Uterine contractions (Acute) Anemia (Chronic) Vaginal discharge (Acute) Vulvar lesion (Acute) Rh negative state in antepartum period (Acute) Back pain affecting (Acute) COVID-19 affecting in second trimester (Acute) 02/27/22 + Obesity, Class III, BMI 40-49.9 (morbid obesity) (Acute) Vaginal discharge (Acute) Dysuria during (Acute) (Acute) Missed menses (Acute) Mixed stress and urge urinary incontinence (Acute) Abdominal pain (Acute) Hyperlipidemia (Chronic) Depressive disorder (Chronic) Obstructive sleep apnea (Chronic) PSG 09/19/17 Migraine headache without aura (Chronic) Generalized anxiety disorder (Chronic) Medical History Gestational diabetes Kidney stones Urology eval w/ cysto and retrograde negative for ureteral stone. Surgical History H/O cystoscopy (09/16/15) S/P right knee arthroscopy (12/29/14) with partial lateral meniscetomy, MCL graft; at [facility] Family History Mother Diabetes GDM Father Alcohol abuse Depression Sister Depression Sister No problems noted. Brother No problems noted. Maternal Grandfather Type 2 diabetes mellitus Diabetes Type II SVT (supraventricular tachycardia) age 72 Maternal Grandmother Breast cancer Paternal Grandfather Celiac disease Paternal Grandmother Depression Migraines Son No problems noted. Self Depression Diabetes Migraines Maternal Uncle Heart disease mid- 40s. 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 Pets and animals: Yes Pets and animals: dog(s) Sexually active: Yes Do you think of yourself as: straight/heterosexual Current gender identity: female What is your relationship status?: How often do you talk on the phone with friends or family?: three or more times per week How often do you get together with friends or relatives?: three or more times per week How often do you attend rastafari or jewish services?: 1-3 times per year Do you belong to any clubs or organized social groups?: no Panel score (0-1 are the most socially isolated patients): 2 Duration: < 15 minutes/day Frequency: 1-2 times per week Jeri/Hinduism: Amish Seatbelt use: sometimes Helmet use: Yes Helmet use: always Drive intox or ride w/intox special needs bus driver: No Do you feel safe at home: Yes Do you feel safe in your relationship?: Yes Female Reproductive History Menstrual control method: pills History History 2 Para 1 Hx # Term Pregnancies 1 Multiple births 0 Hx # Pregnancies 0 Ectopic pregnancies 0 AB induced 0 Hx Number of Living Children 1 AB spontaneous 0 Past Pregnancies Del. Date GA/Weeks # Preg Succ Route Wgt Sex Labor Lgth Anesthesia Location Prov Complic 12/31/19 40 No vaginal 8 lb 10 oz Male 13 regional [facility] Laws; Jarek Corbin MD present Delivery Date: 12/31/19 Last Updated by: Glo Morrell CNM IOL for GDM, misoprostol and pitocin after epidural. GBS pos. Tyler Castano. Pushing for 5 hours Meds Allergies and Home Medications Allergies Allergy/AdvReac Type Severity Reaction Status Date / Time No Known Drug Allergies Allergy Verified 07/29/22 07:38 Home Medications Medication Instructions Recorded Confirmed Type lactobacillus combination no.9 4 4 cell PO DAILY 04/07/18 07/29/22 History billion cell capsule (Adult 50 Plus Probiotic) docusate sodium 100 mg capsule 100 mg PO DAILY PRN 11/26/19 07/29/22 History (Stool Softener) aspirin 81 mg chewable tablet 81 mg PO DAILY 02/06/22 07/29/22 History sertraline 50 mg tablet 50 mg PO DAILY #90 tabs 02/06/22 07/29/22 Rx vitamin with calcium 1 tab PO DAILY #90 tabs 05/17/22 07/29/22 Rx no.72-iron 27 mg-folic acid 1 mg tablet cyproheptadine 4 mg tablet 8 mg PO QHS #90 tabs 06/12/22 07/29/22 Rx ferrous sulfate 325 mg (65 mg 325 mg PO DAILY 07/17/22 07/29/22 History iron) tablet (FeroSul) Exam Physical Exam Vital signs: Pulse BP Pulse Ox 101 H 124/66 96 07/29/22 07:17 07/29/22 07:17 07/29/22 07:05 Vital Signs Reviewed: Yes Narrative: T 36.8c Constitutional Constitutional: no acute distress, morbidly obese and cooperative Detailed Labor and Delivery Exam Dilation: 4 Effacement (%): 60 station: -2 Position: JAY Cervix position: posterior Consistency: soft Mcintyre Score: Cervical Points Exam 0 1 2 3 Dilation Closed 1-2cm 3-4 cm 5-6cm Effacement 0-30% 40-50% 60-70% 80% Consistency Firm Medium Soft Station -3 -2 -1,0 +1,+2 Position Posterior Mid Anterior MCINTYRE Score(Cervical Ripeness Score): 7 Amniotic Membrane Status: Intact Contraction Frequency(min): 4-6 Contraction Duration(sec): 60-80 Contraction Intensity: Moderate Fetus A Heart Rate Baseline: 140 (baseline is difficult to maintain due to body habitus, will be changing monitor to Novii) Monitor Accelerations: 15 X 15 Monitor Decelerations: Variable (one variable to 115 with maternal coughing) Variability: Moderate (6-25 BPM) Categories: Category I (as variable decelerations are not recurrent at this time.) Est. Weight: 8 lb 8 oz HEENT Exam HEENT Exam: Abnormal (nasal congestion with clear mucous, has cough and sore throat, recent cultures negative for COVID flu at [facility] on 07/27) Neck Exam Neck Exam: Normal Chest/Brest/Axilla Exam Chest Exam: Normal (visual exam) Breast Exam Breast Exam: Not Done Respiratory Exam Respiratory Exam: Abnormal (lungs CTA, light green nasal mucous in moderate amounts) Cardiovascular Exam Cardiovascular Exam: Normal Abdominal Exam Abdominal Exam: Normal (Fundal height 41, slightly larger than dates, not Greater than 3 cm) Rectal Exam Rectal Exam: Not Done Exam Exam: Normal Extremities Exam Extremities Exam: Normal Back/Spine/Pelvis Exam Back Exam: Not Done Pelvis Adequate: Yes Skin Exam Skin Exam: Normal Neurological Exam Neurological Exam: Normal Psychiatric Exam Psychiatric Exam: Normal Risk Assessment Risk for Shoulder Dystocia Historical/Initial OB: POSITIVE FOR: Pre- BMI>30; NEGATIVE FOR: Pelvic Abnormality, Previous Shoulder Dystocia or Previous Macrosomia 40 Weeks: NEGATIVE FOR: EFW> 4500 gms, Maternal Weight Gain >40lb or Post Dates Delivery Plan @ 40 wks: NVD planned, pushed 5 hours last is aware mild to moderate increased risk due to BMI Risk for Pre-Eclampsia Yes, if one or more: NEGATIVE FOR: Hx Pre-E/Gest HTN, Chronic HTN, Multiple Gestation, Pre-gestational DM, Renal Disease, Systemic Lupus or APA Syndrome Yes, if 2 or more: POSITIVE FOR: BMI>30 and Mother/Sister w/ Pre-E; NEGATIVE FOR: Nulliparity, Age>= 35 yrs, >10yr btwn pregnancies, ethinicty or Previous IUGR Risk for Post- Hemorrhage Initial: NEGATIVE FOR: Multiple Gestation, Previous PPH, Known Clotting Deficiency, Grand Multiparity or Anticoagulation At Risk?: No Counseled re: Active Management: Yes Date/Initials: 07/29/22 KH Risks Reviewed Risks Reviewed Upon Admission: Yes
[2022-07-29 08:19] LABS: HCT 33.5 % (36.0-46.0); HGB 10.9 g/dL (11.2-15.7); MCH 26.5 pg (27.0-33.0); MCHC 32.5 % (32.0-36.0); MCV 81 fL (80-95); MPV 11.6 fL (8.0-11.0); Platelet Count 192 10^3/uL (130-400); RBC 4.12 10^6/uL (3.93-5.22); RDW-SD 44.2 fL; WBC 9.96 10^3/uL (4.4-10.8)
[2022-07-29 08:34] LABS: COVID-19 PCR Negative (Negative); Influenza A PCR Negative (Negative); Influenza B PCR Negative (Negative)
[2022-07-29 08:36] LABS: Source Nasopharynx
[2022-07-29 08:37] LABS: RSV PCR Positive (Negative)
[2022-07-29] MEDS: Lactated Ringers 1,000 ML 999 ML IV (08:40)
[2022-07-29] MEDS: Acetaminophen 500 MG TAB 1000 MG PO ×2 (08:55→21:27)
[2022-07-29] MEDS: Penicillin G POT. 5,000,000 UNITS in Normal Saline 100 ML 200 UNITS IVPB (09:00)
--- NOTE | 2022-07-29 10:29 | W.PM.OBNL1 ---
Date of service: 07/29/22 Time of Service: 10:29 Informed Consent Informed Consent: Augmentation of Labor, Risk,Benefits,Alternatives Discussed and Other (COVID,Flu, RSV culture) Pelvic Exam Dilation: 7 Effacement (%): 90 station: -1 Cervix Position: mid Contractions Monitor Mode: Palpation (Novii not demonstrating contractions) Contraction Frequency(min): 2-4 Intensity: Moderate/Strong Fetus A Monitor: Novii Heart Rate Baseline: 125 Variability: Moderate (6-25 BPM) Categories: Category I Accelerations: 15 X 15 Decelerations: None Assessment and Plan Assessment and plan (1) Normal labor: Status: Acute Assessment and plan: 1. IV Nubain ordered per patient request 2. Continue present management of support 3. Second dose of IV PCN is due approximately 1300 4. Expect NVD. KH Objective Abnormal lab results 07/29/22 07/29/22 Range/Units 07:40 08:10 Hgb 10.9 L (11.2-15.7) g/dL Hct 33.5 L (36.0-46.0) % MCH 26.5 L (27.0-33.0) pg RDW 15.0 H (11.7-14.6) % MPV 11.6 H (8.0-11.0) fL RSV (PCR) Positive A* (Negative) Temp Pulse BP Pulse Ox 97.9 F 79 112/57 L 94 07/29/22 09:51 07/29/22 09:53 07/29/22 09:53 07/29/22 09:52 Laboratory Results WBC 9.96 10^3/uL (4.4-10.8) 07/29/22 08:10 RBC 4.12 10^6/uL (3.93-5.22) 07/29/22 08:10 Hgb 10.9 g/dL (11.2-15.7) L 07/29/22 08:10 Hct 33.5 % (36.0-46.0) L 07/29/22 08:10 MCV 81 fL (80-95) 07/29/22 08:10 MCH 26.5 pg (27.0-33.0) L 07/29/22 08:10 MCHC 32.5 % (32.0-36.0) 07/29/22 08:10 RDW 15.0 % (11.7-14.6) H 07/29/22 08:10 Plt Count 192 10^3/uL (130-400) 07/29/22 08:10 MPV 11.6 fL (8.0-11.0) H 07/29/22 08:10 COVID-19 Source Nasopharynx 07/29/22 07:40 SARS-CoV-2 (PCR) Negative (Negative) 07/29/22 07:40 Influenza Type A (PCR) Negative (Negative) 07/29/22 07:40 Influenza Type B (PCR) Negative (Negative) 07/29/22 07:40 RSV (PCR) Positive (Negative) A* 07/29/22 07:40 Patient ABO/Rh AB Negative 07/29/22 08:10 Antibody Screen NEGATIVE 07/29/22 08:10 Vital Signs Reviewed: Yes Subjective Interval history since last seen: reporting more pressure and asking for IV pain medication. Agrees to VE. Results Hemoglobin/Hematocrit: Hgb 10.9 g/dL (11.2-15.7) L 07/29/22 08:10 Hct 33.5 % (36.0-46.0) L 07/29/22 08:10 Abnormal Lab Findings: Abnormal Labs 07/29/22 07/29/22 07:40 08:10 Hgb 10.9 L Hct 33.5 L MCH 26.5 L RDW 15.0 H MPV 11.6 H RSV (PCR) Positive A*
[2022-07-29] MEDS: Normal Saline 50 ML (10:56)
[2022-07-29] MEDS: Oxytocin 10 UNITS/ML VIAL IM (12:24)
[2022-07-29] MEDS: miSOPROStol 200 MCG TAB 600 MCG SL (12:39)
--- NOTE | 2022-07-29 12:45 | OBVDS_ITS ---
Date of service: 07/29/22 Time of Service: 12:45 OB Labor/ Delivery Information Baby A Delivery Delivery Method: Spontaneaous Presentation: Cephalic Cephalic Position: Vertex Vertex Position: Left Occipital Anterior Cord Description-Baby A: 3 Vessels and Clamped/Cut Amniotic Fluid: Clear Estimated Blood Loss: 400 Delivery Outcome: Liveborn Infant Complications: none Providers Nurse Clinical Trial Assistant: Glo Holt Nurse: Yinka London Nurse: Elinor Paulson Labor/Delivery Information Number of Babies in Womb: 1 Group Beta Strep: Positive Antibiotics Administered: Yes Number of Doses of Antibiotics: 1 Rubella Status: Immune Blood Type: AB- Varicella Immunity: Immune Stages of Labor Onset of Labor Date: 07/28/22 Onset of Labor Time: 01:30 ROM Baby A: 07/29/22 ROM Baby A: 11:50
--- NOTE | 2022-07-29 12:59 | W.OBDELIVERY ---
Date of service: 07/29/22 Time of Service: 12:40 OB Labor/ Delivery Information Baby A Delivery Delivery Method: Spontaneaous Presentation: Cephalic Cephalic Position: Vertex Vertex Position: Left Occipital Anterior Cord Description-Baby A: 3 Vessels and Clamped/Cut Amniotic Fluid: Clear Estimated Blood Loss: 400 Delivery Outcome: Liveborn Infant Complications: none Infant Transferred: Remains with Mother Note: Oriana and her Kishore presented for labor this morning. She reported regular contractions since 0130 without ROM but had some bloody discharge. Baby had been active. She was 4cm/60% on arrival. She had IV access placed and was started on PCN for GBS+ RV culture. FHR tracing was CAT I throughout first stage of labor. She used Nitrous and had a dose of Nubain 10 mg IV for pain management. Oriana's labor progressed well and she had involuntary urge to push at 1200 after experiencing SROM at 1155 for clear fluid. She pushed on hands and knees and her son, Jeremias, delivered his head at 1221.30. Due to maternal position it was not possible to maneuver for shoulders and patient was able to quickly rotate in the bed and on side lying position was complete at 1222. A live male was placed skin to skin. score at 1 minute was 6 due to slow to move and color/cry but by 5 minutes was 9 with only stimulation and skin to skin. 3 vessel cord noted. Positive family bonding is noted. 10 units of pitocin was given IM after baby delivered as IV access was no longer available. Placenta delivered with maternal pushing effort at 1229. Trailing membranes were teased out and fundus was firm at U-2 with massage. Initial blood loss was 200 in drape but at then Oriana had a gush of < 200 for next fundal check so EBL is 400. We gave Oriana 600 of misoprostol PO at that time as a precaution. Oriana and Kishore plan to feed their baby breast milk and baby is at breast and nursing well by 30 minutes of life. They plan progesterone only pills for contraception. They viewed their placenta for do not wish to take it home with them. Mother and baby Jeremias and doing well. Expect normal PP course. Oriana does not plan to have circumcision done for Jeremias. Jeremias's weight is 9lb 5.68oz 4340g. Providers Nurse Hydraulic Press Servicer: Glo Holt Nurse: Elinor Paulson Nurse: Yinka London Labor/Delivery Information Number of Babies in Womb: 1 Steroids Given: None Reason Steroids Not Administered: N/A Group Beta Strep: Positive Antibiotics Administered: Yes Number of Doses of Antibiotics: 1 Rubella Status: Immune Blood Type: AB- Varicella Immunity: Immune Medication in Delivery: nubaine Maternal Complications: None Shoulder Dystocia: No Stages of Labor Onset of Labor Date: 07/28/22 Onset of Labor Time: 01:30 Complete Dilatation Date: 07/29/22 Complete Dilatation Time: 12:00 Labor - Stage 1 Duration: 34 hours and 30 minutes ROM Baby A: 07/29/22 ROM Baby A: 11:55 ROM Total Time- Baby A: [id number] Infant Delivery Date-Baby A: 07/29/22 Delivery Time-Baby A: 12:22 Labor Stage 2 Duration: 22 minutes Placenta Delivery Date-Baby A: 07/29/22 Placenta Delivery Time-Baby A: 12:29 Labor-Stage 3 Duration: 7 minutes Total Length of Labor-Baby A: 34 hours and 52 minutes Placenta Status: Delivered Baby A Gender: Male Gestational Status: Early Term (37-38.6 wks) Gestational Age in Weeks/Days: 38 Weeks and 6 Days Score-1 Minute Interval(Baby A) Heart Rate-1 minute: 100 BPM or Greater Respiratory Effort- 1 minute: Slow Respiration/Weak Cry Muscle Tone-1 minute: Minimal Flexion/Extension Reflex Response-1 minute: Minimal Response Color-1 minute: Bluish Hands or Feet Total Score-1 minute: 6 Score-5 Minute Interval(Baby A) Heart Rate- 5 minute: 100 BPM or Greater Respiratory Effort-5 minute: Spontaneous/Strong Cry Muscle Tone-5 minute: Active Movement Reflex Response-5 minute: Prompt Response Color-5 minute: Bluish Hands or Feet Total Score- 5 minute: 9
[2022-07-29] MEDS: Ibuprofen 600 MG TAB PO ×2 (15:19→21:26)
[2022-07-29] MEDS: guaiFENesin 600 MG TABCR PO ×2 (15:19→23:47)
[2022-07-29] MEDS: Hamamelis Leaf/Glycerin 100 EACH BOX PR (15:20)
[2022-07-29] MEDS: Acetaminophen 325 MG TAB 650 MG PO (15:20)
[2022-07-29] MEDS: Docusate Sodium 100 MG CAP PO (21:25)
[2022-07-29] MEDS: Sertraline 50 MG TAB PO (21:27)
--- NOTE | 2022-07-29 23:50 | NUR.NOTE ---
Nursing Note: Jonathon EGANM called regarding pt complaint of eye exudate and irritation. Mucinex given as ordered and CNM to address obtaining a culture in the am.
[2022-07-30 03:00] VITALS: BP 119/78; PULSE 87; RESP 18; TEMP 36.5; O2SAT 98
[2022-07-30] MEDS: Acetaminophen 500 MG TAB 1000 MG PO ×4 (03:22→21:29)
[2022-07-30] MEDS: Ibuprofen 600 MG TAB PO ×4 (03:22→21:28)
--- NOTE | 2022-07-30 08:12 | W.PM.OBPNV1 ---
Date of service: 07/30/22 Time of Service: 08:12 Assessment and Plan Assessment and plan (1) care following vaginal delivery: Status: Acute Assessment and plan: 1. Doing own ADL's. Minimal lochia, voiding without difficulty 2. Will continue present management (2) Lactating mother: Status: Acute Assessment and plan: 1. Experienced lactating mother, is doing well with breast feeding 2. Continue present management. (3) RSV (respiratory syncytial virus infection): Status: Acute Assessment and plan: 1. Managing nasal and eye congestion with mucinex, throat lozenge for sore throat 2. Had recently had throat culture that was normal torri at [facility] 3. Continue present management, masking and gloving when holding baby. (4) Generalized anxiety disorder: Status: Chronic Assessment and plan: 1. Has been well controlled with current dose of sertraline, continue this management at this time 2. Patient is aware of symptoms and if increasing that we can increase anti anxiety/depression medication. FACUNDO (5) Depressive disorder: Status: Chronic Assessment and plan: 1. Has been well controlled on current medication. If symptoms increase we will increase dose as it is currently lower than in the past for her. 2. She is aware of symptoms of PPD as well. Subjective Subjective Interval history: Doing well PP. Continues to have RSV symptoms of cough, nasal and eye congestion. Masking and gloving when holding baby. [place] baby status: Doing well, Nursing well and Strong Bonding Observed feeding status: Exclusively breast feeding Exam Physical Exam Vital signs: Temp Pulse Resp BP Pulse Ox 97.7 F 87 18 119/78 98 07/30/22 03:00 07/30/22 03:00 07/30/22 03:00 07/30/22 03:00 07/30/22 03:00 Vital Signs Reviewed: Yes Constitutional Constitutional: no acute distress, average body habitus and cooperative HEENT Exam HEENT Exam: Normal Neck Exam Neck Exam: Normal (normal visual inspection) Respiratory Exam Respiratory Exam: Abnormal (nasal and eye congestion and drainage due to RSV illness) Cardiovascular Exam Cardiovascular Exam: Normal Abdominal Exam Abdomen: Other (normal exam) Fundal Exam Fundus: Below Umbilicus and Firm Comment: small lochia noted. Rectal Exam Rectal Exam: Not Done Exam Perineum: Intact and Normal Extremities Exam Extremity Exam: Normal (denies calf tenderness) and Full ROM Back/Spine/Pelvis Exam Back Exam: Normal Skin Exam Skin Exam: Normal Neurological Exam Neurological Exam: Normal Psychiatric Exam Psychiatric Exam: Normal Results Hemoglobin/Hematocrit: Hgb 10.9 g/dL (11.2-15.7) L 07/29/22 08:10 Hct 33.5 % (36.0-46.0) L 07/29/22 08:10 Abnormal Lab Findings: Abnormal Labs 07/29/22 07/29/22 07:40 08:10 Hgb 10.9 L Hct 33.5 L MCH 26.5 L RDW 15.0 H MPV 11.6 H RSV (PCR) Positive A*
[2022-07-30 08:45] VITALS: BP 123/76; PULSE 92; RESP 19; TEMP 36.4; O2SAT 95
[2022-07-30] MEDS: guaiFENesin 600 MG TABCR PO ×2 (09:28→21:28)
[2022-07-30] MEDS: diphenhydrAMINE 25 MG CAP PO ×2 (14:04→21:29)
[2022-07-30 21:00] VITALS: BP 120/74; PULSE 91; RESP 18; TEMP 36.6
[2022-07-30] MEDS: Sertraline 50 MG TAB PO (21:28)
[2022-07-31 01:00] VITALS: BP 111/69; PULSE 91; RESP 20; TEMP 36.6
[2022-07-31] MEDS: Acetaminophen 500 MG TAB 1000 MG PO (04:24)
[2022-07-31] MEDS: Ibuprofen 600 MG TAB PO (04:24)
[2022-07-31 07:50] VITALS: BP 124/83; PULSE 94; RESP 16; TEMP 36.6; O2SAT 97
[2022-07-31] MEDS: Docusate Sodium 100 MG CAP PO (07:57)
--- NOTE | 2022-08-03 10:10 | DSE_ITS ---
Date of service: 08/01/22 Time of Service: 07:30 DS: Diagnosis Discharge Diagnosis (1) care following vaginal delivery: Status: Acute Asessment and Plan: 1. Normal PP course, PP warning signs reviewed 2/ RTO in 2 and 6 weeks PP (2) Lactating mother: Status: Acute Asessment and Plan: 1. continue present management 2. Mastitis warning signs reviewed 3. RTO 2 and 6 week PP (3) RSV (respiratory syncytial virus infection): Status: Acute Asessment and Plan: 1. Continue symptom management and call for any changes or fever. (4) Generalized anxiety disorder: Status: Chronic Asessment and Plan: 1. continue present medication and reassess at 2 week PP visit. (5) Depressive disorder: Status: Chronic Asessment and Plan: 1. Conitinue present medication management and reassess at 2 week PP visit. Discharge Plan Disposition Patient Disposition: Home Condition: Good Discharge Details Reason For Visit: Labor Admit Date/Time: 07/29/22 06:12 Admit Provider: Glo Holt Attending Provider: Glo Holt Primary Care Provider: [facility] Course Hospital Course: NVD over intact perineum. and PP course complicated by RSV, otherwise normal recovery. Breast feeding is going well. Home Meds and New Rx's Prescriptions: Continued Adult 50 Plus Probiotic 4 billion cell capsule 4 cell PO DAILY docusate sodium [Stool Softener] 100 mg capsule 100 mg PO DAILY PRN PNV,calcium 42-jfsi-[id number] acid 27 mg iron- 1 mg tablet 1 tab PO DAILY Qty: 90 3RF Rx Instructions: give with food (meal/snack) sertraline 50 mg tablet 50 mg PO DAILY Qty: 90 4RF Rx Instructions: Take 1 tablet in addition to the 25mg tablet daily cyproheptadine 4 mg tablet 8 mg PO QHS Qty: 90 5RF Rx Instructions: Take two tabs at bedtime daily. Take one tab daily as needed for headaches. Discontinued aspirin 81 mg tablet,chewable 81 mg PO DAILY Label Comments: 02/06/22- Pt is taking 81 mg alternating with 162 mg every other day. ferrous sulfate [FeroSul] 325 mg (65 mg iron) tablet 325 mg PO DAILY No Action ibuprofen 600 mg tablet 600 mg PO Q6H PRN (Reason: pain) Qty: 60 0RF benzonatate 100 mg capsule 100 mg PO TID PRN (Reason: cough) Qty: 20 0RF Discharge Instructions Stand Alone Forms: BC Instructions, BC Post Vaginal Deliver Activity:: Activity as Tolerated Equipment/Supplies:: No Equipment Needed Diet:: As Tolerated Discharge Orders Discharge Orders: Discharge Order (Routine); Ordered 07/31/22 Ordered By: Glo Holt Discharge Data Discharge Date/Time-TO BE ENTERED AT DEPARTURE: 07/31/22 08:55 OB:DS Summary Summary Vaginal Delivery Method: Spontaneaous Episiotomy Description: None Laceration Description: None Laceration Extension: N/A Contraception Discussed Contraception Discussed: Yes, Infant Gender-Baby A: Male weight: 9 lb 9.089 oz Status at Discharge Functional status at discharge: independent ambulation Overall status at discharge: patient is back to baseline Mental Status: mental status grossly normal Speech and Movement: speech and movement normal Mood: congruent mood Affect: normal affect Exam Physical Exam Vital signs: Temp Pulse Resp BP Pulse Ox 97.9 F 94 H 16 124/83 97 07/31/22 07:50 07/31/22 07:50 07/31/22 07:50 07/31/22 07:50 07/31/22 07:50 Vital Signs Reviewed: Yes Constitutional Constitutional: no acute distress, average body habitus and cooperative HEENT Exam HEENT Exam: Normal Neck Exam Neck Exam: Normal (normal visual inspection) Respiratory Exam Respiratory Exam: Normal Cardiovascular Exam Cardiovascular Exam: Normal Abdominal Exam Abdomen: Other (normal exam) Fundal Exam Fundus: Below Umbilicus and Firm Comment: small lochia noted. KH Rectal Exam Rectal Exam: Not Done Exam Perineum: Intact and Normal Extremities Exam Extremity Exam: Normal (denies calf tenderness) and Full ROM Back/Spine/Pelvis Exam Back Exam: Normal Skin Exam Skin Exam: Normal Neurological Exam Neurological Exam: Normal Psychiatric Exam Psychiatric Exam: Normal PFSH All Active Problems (Updated 08/01/22 @ 00:05 by CHERISE HUDDLESTON) RSV (respiratory syncytial virus infection) (Acute) Lactating mother (Acute) care following vaginal delivery (Acute) Rh negative state in antepartum period (Acute) Obesity, Class III, BMI 40-49.9 (morbid obesity) (Acute) (Acute) Depressive disorder (Chronic) Obstructive sleep apnea (Chronic) PSG 09/19/17 Migraine headache without aura (Chronic) Generalized anxiety disorder (Chronic) Medical History (Updated 08/01/22 @ 00:05 by CHERISE HUDDLESTON) Abdominal pain Anal fissure Anemia Back pain affecting COVID-19 affecting in second trimester 02/27/22 + Dysuria during Gestational diabetes Group B Streptococcus carrier, +RV culture, currently Hyperlipidemia IBS (irritable bowel syndrome) Kidney stones Urology eval w/ cysto and retrograde negative for ureteral stone. Missed menses Mixed stress and urge urinary incontinence Normal labor Uterine contractions Vaginal discharge Vaginal discharge Vulvar lesion Surgical History H/O cystoscopy (09/16/15) S/P right knee arthroscopy (12/29/14) with partial lateral meniscetomy, MCL graft; at [facility] Family History Mother Diabetes GDM Father Alcohol abuse Depression Sister Depression Sister No problems noted. Brother No problems noted. Maternal Grandfather Type 2 diabetes mellitus Diabetes Type II SVT (supraventricular tachycardia) age 72 Maternal Grandmother Breast cancer Paternal Grandfather Celiac disease Paternal Grandmother Depression Migraines Son No problems noted. Self Depression Diabetes Migraines Maternal Uncle Heart disease mid- 40s. Social History Smoking/Tobacco Use Status: Former Tobacco Use Quit status: has quit before Second Hand Exposure: No Smoking risk assessment performed?: Yes Alcohol Intake: current Alcohol Intake frequency: a few times a week Alcohol type: hard liquor Drug use: Never Substance use type: does not use Counseling given: No Counseling provided: none Caregiver/Support person: No Household members: spouse and children Housing: house Communication Needs: None Do you need help understanding health information?: Never current occupation: CARPENTER MATE Pets and animals: Yes Pets and animals: dog(s) Sexually active: Yes Do you think of yourself as: straight/heterosexual Current gender identity: female What is your relationship status?: How often do you talk on the phone with friends or family?: three or more times per week How often do you get together with friends or relatives?: three or more times per week How often do you attend buddhist or samaritan services?: 1-3 times per year Do you belong to any clubs or organized social groups?: no Panel score (0-1 are the most socially isolated patients): 2 Duration: < 15 minutes/day Frequency: 1-2 times per week Jeri/Rastafarian: Caodaism Seatbelt use: sometimes Helmet use: Yes Helmet use: always Drive intox or ride w/intox transit driver: No Do you feel safe at home: Yes Do you feel safe in your relationship?: Yes Female Reproductive History Menstrual control method: pills History History 2 Para 1 Hx # Term Pregnancies 1 Multiple births 0 Hx # Pregnancies 0 Ectopic pregnancies 0 AB induced 0 Hx Number of Living Children 1 AB spontaneous 0 Past Pregnancies Del. Date GA/Weeks # Preg Succ Route Wgt Sex Labor Lgth Anesth esia Location [facility] 12/31/19 40 No vaginal 8 lb 10 oz Male 13 regional Darryl Stack CNM; Jarek Corbin MD present Delivery Date: 12/31/19 Last Updated by: Glo Morrell CNM IOL for GDM, misoprostol and pitocin after epidural. GBS pos. Tyler Castano. Pushing for 5 hours DS: Data Vitals/I&O Vitals and I&O: Vital Signs Temperature 97.9 F 07/31/22 07:50 Pulse 94 H 07/31/22 07:50 Pulse Rhythm Regular 07/31/22 07:50 Respiratory Rate 16 07/31/22 07:50 Blood Pressure 124/83 07/31/22 07:50 Blood Pressure Mean 96 07/31/22 07:50 Pulse Oximetry 97 07/31/22 07:50 Oxygen Delivery Method Room Air 07/29/22 07:17 Oxygen Flow Rate 0 07/29/22 07:17 Pain Level 2 07/31/22 07:50
== END 2022-07-31 08:55 | disposition home or self-care (01) | DRG 806 ==
PROVIDERS: Admitting Provider Advanced Practice Midwife; PCP Nurse Practitioner Family; Visit Provider Advanced Practice Midwife
DX: O99.824 Streptococcus B carrier state complicating childbirth (principal); O36.0930 Maternal care for other rhesus isoimmunization, third trimester, not applicable or unspecified; Z37.0 Single live birth; O98.52 Other viral diseases complicating childbirth; Z3A.38 38 weeks gestation of pregnancy; J06.9 Acute upper respiratory infection, unspecified; O99.52 Diseases of the respiratory system complicating childbirth; O99.02 Anemia complicating childbirth; O99.214 Obesity complicating childbirth; O99.354 Diseases of the nervous system complicating childbirth; O99.344 Other mental disorders complicating childbirth; D64.9 Anemia, unspecified; E66.01 Morbid (severe) obesity due to excess calories; F41.1 Generalized anxiety disorder; F32.A Depression, unspecified; B33.8 Other specified viral diseases; B97.4 Respiratory syncytial virus as the cause of diseases classified elsewhere; G43.709 Chronic migraine without aura, not intractable, without status migrainosus; N39.46 Mixed incontinence; E78.5 Hyperlipidemia, unspecified; M54.9 Dorsalgia, unspecified; R30.0 Dysuria; O75.89 Other specified complications of labor and delivery
CPT/HCPCS: 59410; 36415; 85027; 86850; 86900; 86901; 87637; J2540; J2590; J3490

== ENCOUNTER 2023-08-09 09:17 | Outpatient (REF) | payer BC, SELFPAY ==
--- NOTE | 2023-08-09 09:00 | PAPFT_PTH ---
PATIENT: Oriana Augustin LOC: N U#:[id number] AGE/SX: 28/F ROOM: RE08/09/[address]: Holley Engle CNM : 1995 BED: DIS: 08/09/2023 SPEC #: [id number] RECD: 08/09/23 12:57 STATUS: GARETH RUBALCAVA #: [id number] NURIA: 08/09/23 09:[address]: Holley Engle DEPT: [facility] Cytology RECD BY: Ade Harrell ENTERED: 08/09/23 12:57 SP TYPE: PAPFT CHERYL DR: Nishi Hoffman, RN FIRST ASSIST Tissues: 1 - CX/ENDOCX FOR PAP SMEARS Procedures: PAP THIN PREP/UVM Screening Comments: [id number]
== END 2023-08-09 09:18 | disposition home or self-care (01) ==
LOC: LBN 09:17
PROVIDERS: PCP Nurse Practitioner Family; Visit Provider Advanced Practice Midwife
DX: Z12.4 Encounter for screening for malignant neoplasm of cervix (principal)
CPT/HCPCS: 88142

== ENCOUNTER 2023-11-29 13:44 | Outpatient (REF) | payer BC, SELFPAY | END 2023-11-29 13:45 | disposition home or self-care (01) | LOC: LBN 13:44 | PROVIDERS: PCP Nurse Practitioner Family; Visit Provider Advanced Practice Midwife | DX: N89.8 Other specified noninflammatory disorders of vagina (principal) | CPT/HCPCS: 87480; 87510; 87660 ==

== ENCOUNTER 2024-03-19 02:21 | Outpatient (CLI) | payer BC, SELFPAY ==
--- NOTE | 2024-03-19 09:30 | DI.RAD_ITS ---
Exam(s) XR TOE RT GREAT EXAM: XR TOE RT GREAT CLINICAL HISTORY: Subungual exostosis,PAIN RT FOOT, M79.671,M89.8X7,INGROWN TOE NAIL. TECHNIQUE: 2D digital imaging was performed. COMPARISON: No exams were available for comparison FINDINGS: BONES: No acute fracture is present. No bony destructive lesion is seen. JOINTS: No dislocation present. SOFT TISSUE: Mild deformity IMPRESSION: Toenail deformity. No bony abnormality. DATA REPOSITORY: RADIATION DOSE DELIVERED:
== END 2024-03-19 02:41 ==
LOC: DI 02:21
PROVIDERS: PCP Nurse Practitioner Family; Visit Provider Podiatrist
DX: L60.8 Other nail disorders (principal); M79.671 Pain in right foot
CPT/HCPCS: 73660

== ENCOUNTER 2024-07-17 08:46 | Outpatient (REF) | payer OTHER, SELFPAY ==
[2024-07-17 10:23] LABS: Panorama Kit Sent via Fed Ex
[2024-07-17 10:25] LABS: Abs Immature Grans 0.02 10^3/uL (0.0-0.06); Absolute Basophil Count 0.02 10^3/uL (0.0-0.2); Absolute Eosinophil Count 0.02 10^3/uL (0.0-0.7); Absolute Monocyte Count 0.28 10^3/uL (0.1-0.8); Absolute Neutrophil Count 4.51 10^3/uL (1.2-6.7); Basophils % 0.3 %; Eosinophils % 0.3 %; HCT 34.2 % (36.0-46.0); HGB 11.6 g/dL (11.2-15.7); Immature Grans % 0.3 %; Lymphocytes % 22.4 %; MCH 29.3 pg (27.0-33.0); MCHC 33.9 % (32.0-36.0); MCV 86 fL (80-95); MPV 10.9 fL (8.0-11.0); Monocytes % 4.5 %; Neutrophils % 72.2 %; Platelet Count 206 10^3/uL (130-400); RBC 3.96 10^6/uL (3.93-5.22); RDW 12.3 % (11.7-14.6); RDW-SD 38.9 fL; WBC 6.25 10^3/uL (4.4-10.8)
[2024-07-17 10:36] LABS: Glucose,1 Hr (Glucola) 93 mg/dL (80-140)
[2024-07-17 18:58] LABS: Hepatitis B Surface Ag Negative (Negative)
[2024-07-17 19:28] LABS: Hepatitis C Ab w Rflx HCV PCR Negative (Negative)
[2024-07-17 19:47] LABS: HIV-1/2 Ag & Ab Screen Negative (Negative)
[2024-07-20 09:38] LABS: Rubella IgG Ab (UVM) Positive (See Note); Varicella IgG Antibody Negative (See Note)
[2024-07-20 14:59] LABS: Syphilis IgG w/Reflex Nonreactive (Nonreactive)
== END 2024-07-17 08:47 | disposition home or self-care (01) ==
LOC: LBO 08:46
PROVIDERS: PCP Nurse Practitioner Family; Visit Provider Advanced Practice Midwife
DX: Z34.91 Encounter for supervision of normal pregnancy, unspecified, first trimester
CPT/HCPCS: 36415; 82950; 86787; 86803; 86850; 86900; 86901; 87340; 87389; 85025; 86762; 86780

== ENCOUNTER 2024-07-17 10:27 | Outpatient (REF) | payer OTHER, SELFPAY ==
[2024-07-17 10:38] LABS: Bilirubin Negative (Negative); Blood Small (Negative); Clarity Clear (Clear); Glucose Negative (Negative); Ketones Negative (Negative); Leukocyte Esterase Negative (Negative); Nitrite Negative (Negative); Specific Gravity 1.025 (1.005-1.025); Urobilinogen 0.2 mg/dL (Up to 0.2)
[2024-07-17 10:45] LABS: Bacteria Moderate HPF (Negative); C & S Indicated? No; Casts Negative LPF (Negative); Crystals Negative HPF (Negative); Epithelial Cells Moderate HPF (Negative); Mucus Moderate (Negative); WBC Negative HPF (0-5)
[2024-07-20 12:32] LABS: Chlamydia Result Negative (Negative); GC Result Negative (Negative)
== END 2024-07-17 10:28 | disposition home or self-care (01) ==
LOC: LBN 10:27
PROVIDERS: PCP Nurse Practitioner Family; Visit Provider Advanced Practice Midwife
DX: Z34.91 Encounter for supervision of normal pregnancy, unspecified, first trimester (principal); Z3A.11 11 weeks gestation of pregnancy
CPT/HCPCS: 87491; 87591; 81003; 81015

== ENCOUNTER 2024-11-09 02:57 | Outpatient (CLI) | payer OTHER, SELFPAY ==
[2024-11-09 13:35] LABS: HCT 31.9 % (36.0-46.0); HGB 10.4 g/dL (11.2-15.7); MCH 28.1 pg (27.0-33.0); MCHC 32.6 % (32.0-36.0); MCV 86 fL (80-95); MPV 10.6 fL (8.0-11.0); Platelet Count 184 10^3/uL (130-400); RDW 13.3 % (11.7-14.6); RDW-SD 41.4 fL; WBC 9.22 10^3/uL (4.4-10.8)
[2024-11-09 13:48] LABS: Glucose,1 Hr (Glucola) 103 mg/dL (80-140)
== END 2024-11-09 02:58 | disposition home or self-care (01) ==
LOC: LBO 02:57
PROVIDERS: PCP Nurse Practitioner Family; Visit Provider Advanced Practice Midwife
DX: Z34.92 Encounter for supervision of normal pregnancy, unspecified, second trimester (principal)
CPT/HCPCS: 36415; 82950; 85027; 86850; 90384

== ENCOUNTER 2024-12-08 01:16 | Outpatient (CLI) | payer OTHER, SELFPAY ==
--- NOTE | 2024-12-08 06:30 | DI.US_ITS ---
Exam(s) US OB ALYX WEIGHT EXAM: US OB ALYX WEIGHT CLINICAL HISTORY: h/o GDM,z86.32,O09.299. TECHNIQUE: Transabdominal obstetrical ultrasound was performed. COMPARISON: US US OB 2-3 TRIMESTER from 09/14/2024 FINDINGS: There is a single viable intrauterine gestation with cardiac activity identified-144 bpm The fetus is presently in cephalic position . Amniotic fluid: There is a normal amount of amniotic fluid with an ALYX of 12.38cm. Placental location: The placenta is anterior grade 2,with no evidence of placenta previa. Dating parameters place this at approximately 32 weeks gestational age, implying BOB of . BPD measures 30 weeks and 3 days HC measures 31 weeks and 5 days AC measures 32 weeks and 5 days FL measures 33 weeks and 0 days Estimated weight is 1993 gm-4 pound 6 ounces Fetus is at the 51st percentile on the Hadlock scale. IMPRESSION:: Viable 3rd trimester gestation, as described above. DATA REPOSITORY:
== END 2024-12-08 01:36 ==
LOC: DI 01:16
PROVIDERS: PCP Nurse Practitioner Family; Visit Provider Advanced Practice Midwife
DX: O09.293 Supervision of pregnancy with other poor reproductive or obstetric history, third trimester; Z86.32 Personal history of gestational diabetes; Z3A.33 33 weeks gestation of pregnancy
CPT/HCPCS: 76816

== ENCOUNTER 2025-01-05 19:17 | Outpatient (REF) | payer OTHER, SELFPAY | END 2025-01-05 19:18 | disposition home or self-care (01) | LOC: LBN 19:17 | PROVIDERS: PCP Nurse Practitioner Family; Visit Provider Advanced Practice Midwife | DX: Z34.93 Encounter for supervision of normal pregnancy, unspecified, third trimester (principal) | CPT/HCPCS: 87081 ==

== ENCOUNTER 2025-01-21 00:42 | Outpatient (CLI) | payer OTHER, SELFPAY ==
--- NOTE | 2025-01-21 14:20 | DI.US_ITS ---
Exam(s) US OB ALYX WEIGHT EXAM: US OB ALYX WEIGHT CLINICAL HISTORY: ,Z34.90. TECHNIQUE: Transabdominal obstetrical ultrasound was performed. COMPARISON: US POCUS EXAM from 01/19/2025 FINDINGS: There is a single viable intrauterine gestation with cardiac activity identified-126 bpm The fetus is presently in cephalic position . Amniotic fluid: There is a normal amount of amniotic fluid with an ALYX of 17.7cm. Placental location: The placenta is anterior grade 3,with no evidence of placenta previa. Dating parameters place this at approximately 38 weeks and 4 days gestational age, implying BOB of 01/31/2025. BPD measures 36 weeks and 6 days HC measures 38 weeks and 3 days AC measures 39 weeks and 3 days FL measures 39 weeks and 3 days Estimated weight is 3647 gm-8 pounds 1 ounce Fetus is at the 78th percentile on the Hadlock scale. IMPRESSION:: Viable 3rd trimester gestation, as described above. DATA REPOSITORY:
== END 2025-01-21 01:02 ==
LOC: DI 00:43
PROVIDERS: PCP Nurse Practitioner Family; Visit Provider Advanced Practice Midwife
DX: Z34.93 Encounter for supervision of normal pregnancy, unspecified, third trimester (principal); Z3A.38 38 weeks gestation of pregnancy
CPT/HCPCS: 76816

== ENCOUNTER 2025-02-06 12:34 | Inpatient (IN) | payer OTHER, SELFPAY ==
[2025-02-06] VITALS (110 sets, daily range): BP systolic 116–143; BP diastolic 56–76; PULSE 0–123; RESP 16–18; TEMP 36.6–37; O2SAT 97–99
[2025-02-06 13:12] LABS: HCT 34.1 % (36.0-46.0); HGB 11.1 g/dL (11.2-15.7); MCH 26.7 pg (27.0-33.0); MCHC 32.6 % (32.0-36.0); MCV 82 fL (80-95); MPV 11.4 fL (8.0-11.0); Platelet Count 183 10^3/uL (130-400); RBC 4.16 10^6/uL (3.93-5.22); RDW 15.1 % (11.7-14.6); RDW-SD 44.7 fL; WBC 8.08 10^3/uL (4.4-10.8)
--- NOTE | 2025-02-06 13:36 | W.PM.OBHPL1 ---
Date of service: 02/06/25 Time of Service: 13:37 Assessment and Plan Assessment and plan (1) Maternal varicella, non-immune: Status: Acute (2) Rh negative status during : Status: Acute (3) Obesity, Class III, BMI 40-49.9 (morbid obesity): Status: Chronic (4) 40 weeks gestation of : Status: Acute (5) Encounter for induction of labor: Status: Acute Assessment and plan: A: IUP at 40 weeks 5 days Category I surveillance Ripe cervix Elective induction of labor Rh negative- received RhoGAM GBS negative P: - Discussed trajectory of IOL. Recommended Pitocin since cervix is already ripe. Will plan to AROM once contraction pattern is regular and vertex becomes well-applied to cervix. - Continuous monitoring since Pitocin will be used. - Discussed preferences and pain management options. - Reassess SVE about 2 hours after regular contraction pattern has developed. - Anticipate vaginal . OB-HPI Labor/Delivery History of Present Illness Reason for Visit: R/O Chief Complaint: Scheduled Induction of Labor Indication for Induction: Other (Elective). BOB Calculator Estimated Delivery Date Method Current WG Current Estimate 02/01/25 Ultrasound #1 40w 5d Other Estimates 01/19/25 LMP (Certain) 42w 4d History of Present Expected Delivery Route/Plan - CNM FOB/ - Kishore Augustin (3rd child together) BG Amie Jameson Varicella non-immune, offer vaccine (has had several vaccine series but doesn't seroconvert) Prefers no epidural, likes nitrous and would like to labor some in tub GBS negative Specific Issues/Plan 1. BMI 43 & previous GDM diet controlled, early glucola 93, 28wk 103; Growth US @ 32 weeks- ALYX 12, EFW 51%ile 2. Will start low dose ASA @ 12 wks d/t BMI of 43 and fam hx of pre-e 3. cfDNA low risk female, SMA, CF not done previously 4. Rh neg, RhoGam at 28 wks 11/09/24 5. Migraine - Treated with cyproheptadine. @ 28 weeks, reports taking 2/night. 6. PT referral for left oblique muscle strain 7. Bilateral Sciatica, worse on right: Started PT 8. Mild anemia: 10.4 at 28 week visit. Ferrous gluconate QOD Rx'ed to pt's pharmacy. 8b. Recheck 36 wks=10.1, increase to daily iron with OJ 9. size greater than dates - 78 %ile and ALYX 17 at 38 wks _ Narrative: Oriana is a 29 year old at 40 weeks 5 d by 1st trimester sonogram who presents for elective IOL. Birthing preferences: - hopes to labor in the tub (but not deliver underwater), and use NO for pain relief. She would like to avoid an epidural. - she is expecting a baby girl, Amie who will be breastfed - she will be supported in her labor by her partner / FOB Kishore ROS: General: no fever, no aches, no chills, generally feels well OB: good FM, no LO, no VB, + irregular contractions Respiratory: no SOB CV: no chest pain PFSH All Active Problems (Updated 02/06/25 @ 13:59 by Sheila Lezama CNM) Encounter for induction of labor (Acute) 40 weeks gestation of (Acute) Anemia affecting (Acute) Maternal varicella, non-immune (Acute) Rh negative status during (Acute) History of gestational diabetes in prior , currently (Acute) (Acute) Obstructive sleep apnea (Chronic) CPAP QHS Migraine headache without aura (Chronic) Obesity, Class III, BMI 40-49.9 (morbid obesity) (Chronic) Medical History Hirsutism treated with spironolactone Mixed stress and urge urinary incontinence IBS (irritable bowel syndrome) Hyperlipidemia Pain in right foot Exostosis of right foot Ingrown toenail of right foot Depressive disorder Generalized anxiety disorder Kidney stones Urology eval w/ cysto and retrograde negative for ureteral stone. Anal fissure Surgical History H/O cystoscopy (09/16/15) S/P right knee arthroscopy (12/29/14) with partial lateral meniscetomy, MCL graft; at [facility] Family History Mother Diabetes GDM Father Alcohol abuse Depression Sister Depression Sister No problems noted. Brother No problems noted. Maternal Grandfather Type 2 diabetes mellitus Diabetes Type II SVT (supraventricular tachycardia) age 72 Heart disease Maternal Grandmother , Metastatic breast cancer Breast cancer Paternal Grandfather Celiac disease Paternal Grandmother Depression Migraines Son No problems noted. Son No problems noted. 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 Pets and animals: Yes Pets and animals: dog(s) Sexually active: Yes Do you think of yourself as: straight/heterosexual Current gender identity: female What is your relationship status?: How often do you talk on the phone with friends or family?: three or more times per week How often do you get together with friends or relatives?: three or more times per week How often do you attend oriental orthodox or mormon services?: 1-3 times per year Do you belong to any clubs or organized social groups?: no Panel score (0-1 are the most socially isolated patients): 2 Duration: < 15 minutes/day Frequency: 1-2 times per week Jeri/Baptism: Quaker Seatbelt use: sometimes Helmet use: Yes Helmet use: always Drive intox or ride w/intox regional flatbed truck driver: No Do you feel safe at home: Yes Do you feel safe in your relationship?: Yes Female Reproductive History Menstrual control method: pills History History 3 Para 2 Hx # Term Pregnancies 2 Multiple births 0 Hx # Pregnancies 0 Ectopic pregnancies 0 AB induced 0 Hx Number of Living Children 2 AB spontaneous 0 Past Pregnancies Del. Date GA/Weeks # Preg Succ Route Wgt Sex Labor Lgth Anesthesia Location Prov Complic 12/31/19 40 No vaginal 8 lb 10 oz Male 13 regional BRENDA Laws; Jarek Corbin MD present 07/29/22 38 No Yes vaginal 9 lb 5.68 oz Male 13 hours [facility] Delivery Date: 12/31/19 Last Updated by: Glo Morrell CNM IOL for GDM, misoprostol and pitocin after epidural. GBS pos. Tyler Castano. Pushing for 5 hours Delivery Date: 07/29/22 Last Updated by: Holley Engle Spont labor, Jeremias GBS, hypospadias, surgery at 3 y.o. Meds Allergies and Home Medications Allergies Allergy/AdvReac Type Severity Reaction Status Date / Time No Known Drug Allergies Allergy Other (See Verified 02/01/25 12:53 Comment) Home Medications ?Medication ?Instructions ?Recorded ?Confirmed ?Type lactobacillus combination no.9 4 4 cell PO DAILY 04/07/18 02/01/25 History billion cell capsule (Adult 50 Plus Probiotic) docusate sodium 100 mg capsule 100 mg PO DAILY PRN 11/26/19 02/01/25 History (Stool Softener) vitamins with calcium 1 tab PO DAILY #90 tabs 06/01/24 02/01/25 Rx no.72-iron 27 mg-folic acid 1 mg tablet magnesium 200 mg tablet 400 mg PO DAILY 09/14/24 02/01/25 History cyproheptadine 4 mg tablet See Rx Instructions .Route 10/26/24 02/01/25 Rx .COMPLEX #90 tabs aspirin 81 mg tablet,delayed 162 mg PO DAILY Preeclampsia 12/11/24 02/01/25 History release prevention ferrous gluconate 240 mg (27 mg 240 mg PO DAILY 01/13/25 02/01/25 History iron) tablet Exam Physical Exam Vital signs: Pulse 89 02/06/25 13:32 Narrative: Constitutional: well-nourished, well-developed, alert Respiratory: effort is unlabored, normal breath sounds bilaterally Cardiovascular: regular rate, normal rhythm, no murmurs, 1+ edema bilateral LEXT Gastrointestinal: non-tender to palpation, tone normal without rigidity or guarding, no masses Genitourinary: - external: no inflammation, no lesions - cervix:SVE: 3 / 60 / -2 / soft / mid-position - uterus: gravid, normal shape, contractions q2-5 minutes mild to palpation - perineum: within normal limits - pelvimetry: adequate for EFW Musculoskeletal: no CVAT Neurologic: clonus absent right and left sides Skin and Subcutaneous Tissue: no rashes, no lesions, no areas of discoloration Fetus: - EFW: 3.6-3.8 kg - Presentation: vertex, confirmed by POCUS Detailed Labor and Delivery Exam Owens Score: Cervical Points Exam 0 1 2 3 Dilation Closed 1-2cm 3-4 cm 5-6cm Effacement 0-30% 40-50% 60-70% 80% Consistency Firm Medium Soft Station -3 -2 -1,0 +1,+2 Position Posterior Mid Anterior Results Abnormal Lab Findings: Abnormal Labs 02/06/25 13:05 Hgb 11.1 L Hct 34.1 L MCH 26.7 L RDW 15.1 H MPV 11.4 H Ultrasound OB Ultrasound for presentation. Indication: Induction of labor Presentation: Vertex. Exam complete. Risk Assessment Risk for Shoulder Dystocia Historical/Initial OB: POSITIVE FOR: Pre- BMI>30; NEGATIVE FOR: Pelvic Abnormality, Previous Shoulder Dystocia or Previous Macrosomia Risk for Pre-Eclampsia Date Initiated/Initials: 07/17/2024 Yes, if one or more: NEGATIVE FOR: Hx Pre-E/Gest HTN, Chronic HTN, Multiple Gestation, Pre-gestational DM, Renal Disease, Systemic Lupus or APA Syndrome Yes, if 2 or more: POSITIVE FOR: BMI>30 and Mother/Sister w/ Pre-E; NEGATIVE FOR: Nulliparity, Age>= 35 yrs, >10yr btwn pregnancies, ethinicty or Previous IUGR Risk for Post- Hemorrhage Initial: NEGATIVE FOR: Multiple Gestation, Previous PPH, Known Clotting Deficiency, Grand Multiparity or Anticoagulation Risks Reviewed Risks Reviewed Upon Admission: Yes
[2025-02-06] MEDS: Lactated Ringers 1,000 ML 125 ML IV (13:49)
[2025-02-06] MEDS: Oxytocin/Normal Saline 30 UNIT/500 ML BAG 2 UNITS IV (13:51)
--- NOTE | 2025-02-06 14:26 | W.PM.OBDISCH ---
DS: Diagnosis Discharge Diagnosis (1) Maternal varicella, non-immune: Status: Acute (2) Rh negative status during : Status: Acute (3) Obesity, Class III, BMI 40-49.9 (morbid obesity): Status: Chronic (4) 40 weeks gestation of : Status: Acute (5) Encounter for induction of labor: Status: Acute Discharge Plan Discharge Details Reason For Visit: R/O Admit Date/Time: 02/06/25 12:34 Admit Provider: Sheila Lezama Attending Provider: Sheila Lezama Primary Care Provider: Nishi Hoffman Home Meds and New Rx's Prescriptions: No Action ferrous gluconate 240 mg (27 mg iron) tablet 240 mg PO DAILY Adult 50 Plus Probiotic 4 billion cell capsule 4 cell PO DAILY docusate sodium [Stool Softener] 100 mg capsule 100 mg PO DAILY PRN PNV,calcium 15-npwi-nqdnv acid 27 mg iron- 1 mg tablet 1 tab PO DAILY Qty: 90 5RF Rx Instructions: give with food (meal/snack) magnesium 200 mg tablet 400 mg PO DAILY aspirin 81 mg tablet,delayed release (DR/EC) 162 mg PO DAILY cyproheptadine 4 mg tablet See Rx Instructions .ROUTE .COMPLEX Qty: 90 3RF Dose Instruction: TAKE TWO TABLETS BY MOUTH EVERY EVENING AT BEDTIME Rx Instructions: TAKE TWO TABLETS BY MOUTH EVERY EVENING AT BEDTIME Exam Physical Exam Vital signs: Pulse 119 H 02/06/25 14:24 PFSH All Active Problems (Updated 02/06/25 @ 13:59 by Sheila Lezama CNM) Encounter for induction of labor (Acute) 40 weeks gestation of (Acute) Anemia affecting (Acute) Maternal varicella, non-immune (Acute) Rh negative status during (Acute) History of gestational diabetes in prior , currently (Acute) (Acute) Obstructive sleep apnea (Chronic) CPAP QHS Migraine headache without aura (Chronic) Obesity, Class III, BMI 40-49.9 (morbid obesity) (Chronic) Medical History Hirsutism treated with spironolactone Mixed stress and urge urinary incontinence IBS (irritable bowel syndrome) Hyperlipidemia Pain in right foot Exostosis of right foot Ingrown toenail of right foot Depressive disorder Generalized anxiety disorder Kidney stones Urology eval w/ cysto and retrograde negative for ureteral stone. Anal fissure Surgical History H/O cystoscopy (09/16/15) S/P right knee arthroscopy (12/29/14) with partial lateral meniscetomy, MCL graft; at [facility] Family History Mother Diabetes GDM Father Alcohol abuse Depression Sister Depression Sister No problems noted. Brother No problems noted. Maternal Grandfather Type 2 diabetes mellitus Diabetes Type II SVT (supraventricular tachycardia) age 72 Heart disease Maternal Grandmother , Metastatic breast cancer Breast cancer Paternal Grandfather Celiac disease Paternal Grandmother Depression Migraines Son No problems noted. Son No problems noted. Maternal Aunt Breast cancer Social History Smoking/Tobacco Use Status: Former Tobacco Use Second Hand Exposure: Yes Smoking risk assessment performed?: Yes Alcohol Intake: current Alcohol Intake frequency: a few times a month Alcohol type: hard liquor Drug use: Never Substance use type: does not use Caregiver/Support person: No Household members: spouse and children Housing: house Communication Needs: None Do you need help understanding health information?: Never current occupation: FOOD STOREROOM CLERK Pets and animals: Yes Pets and animals: dog(s) Sexually active: Yes Do you think of yourself as: straight/heterosexual Current gender identity: female What is your relationship status?: How often do you talk on the phone with friends or family?: three or more times per week How often do you get together with friends or relatives?: three or more times per week How often do you attend muslim or methodist services?: 1-3 times per year Do you belong to any clubs or organized social groups?: no Panel score (0-1 are the most socially isolated patients): 2 Duration: < 15 minutes/day Frequency: 1-2 times per week Jeri/Denominational: Orthodox Seatbelt use: sometimes Helmet use: Yes Helmet use: always Drive intox or ride w/intox courtesy bus driver: No Do you feel safe at home: Yes Do you feel safe in your relationship?: Yes Female Reproductive History Menstrual control method: pills History History 3 Para 2 Hx # Term Pregnancies 2 Multiple births 0 Hx # Pregnancies 0 Ectopic pregnancies 0 AB induced 0 Hx Number of Living Children 2 AB spontaneous 0 Past Pregnancies Del. Date GA/Weeks # Preg Succ Route Wgt Sex Labor Lgth Anesthesia Location Prov Complic 12/31/19 40 No vaginal 8 lb 10 oz Male 13 regional [facility]; Jarek Corbin MD present 07/29/22 38 No Yes vaginal 9 lb 5.68 oz Male 13 hours [facility] Delivery Date: 12/31/19 Last Updated by: Glo Morrell CNM IOL for GDM, misoprostol and pitocin after epidural. GBS pos. Tyler Castano. Pushing for 5 hours Delivery Date: 07/29/22 Last Updated by: Holley Engle Spont labor, Jeremias GBS, hypospadias, surgery at 3 y.o. DS: Data Vitals/I&O Vitals and I&O: Vital Signs Pulse 119 H 02/06/25 14:24 Pain Level 0 02/06/25 12:41 Intake & Output 02/05/25 02/06/25 02/06/25 23:59 11:59 23:59 Weight 296 lb Other: Urine Color Yellow Data Completed and Pending Labs on day of discharge: Labs from last 24 hours 02/06/25 13:05 WBC 8.08 RBC 4.16 Hgb 11.1 L Hct 34.1 L MCV 82 MCH 26.7 L MCHC 32.6 RDW 15.1 H Plt Count 183 MPV 11.4 H ABO/Rh AB Negative Antibody Screen NEGATIVE
--- NOTE | 2025-02-06 17:45 | W.PM.OBNL1 ---
Date of service: 02/06/25 Time of Service: 17:45 Assessment and Plan Assessment and plan (1) Encounter for induction of labor: Status: Acute (2) 40 weeks gestation of : Status: Acute Assessment and plan: Discussed amniotomy as a way to facilitate labor, to which she gives consent to perform. AROM performed, returning a small amount of clear fluid. SVE remained unchanged after AROM. FHTs developed non-recurrent variable and early decels, with continued moderate variability and + accels. Soon after AROM, Oriana felt contractions even more intensely. A: IUP at 40 wks 5 d Category II surveillance AROM Active labor- on Pitocin P: - Pitocin down-titrated to allow recovery and accomodate Oriana's spontaneous progression after AROM - Will watch tolerance of labor closely - Nitrous oxide initiated per Oriana's request - Reassess in 2 hours or sooner PRN - Preparations made for delivery Objective Abnormal lab results 02/06/25 Range/Units 13:05 Hgb 11.1 L (11.2-15.7) g/dL Hct 34.1 L (36.0-46.0) % MCH 26.7 L (27.0-33.0) pg RDW 15.1 H (11.7-14.6) % MPV 11.4 H (8.0-11.0) fL Temp Pulse Resp BP Pulse Ox 97.8 F 94 H 16 143/76 H 97 02/06/25 13:00 02/06/25 17:44 02/06/25 15:02 02/06/25 17:25 02/06/25 17:26 Laboratory Results WBC 8.08 10^3/uL (4.4-10.8) 02/06/25 13:05 RBC 4.16 10^6/uL (3.93-5.22) 02/06/25 13:05 Hgb 11.1 g/dL (11.2-15.7) L 02/06/25 13:05 Hct 34.1 % (36.0-46.0) L 02/06/25 13:05 MCV 82 fL (80-95) 02/06/25 13:05 MCH 26.7 pg (27.0-33.0) L 02/06/25 13:05 MCHC 32.6 % (32.0-36.0) 02/06/25 13:05 RDW 15.1 % (11.7-14.6) H 02/06/25 13:05 Plt Count 183 10^3/uL (130-400) 02/06/25 13:05 MPV 11.4 fL (8.0-11.0) H 02/06/25 13:05 ABO/Rh AB Negative 02/06/25 13:05 Antibody Screen NEGATIVE 02/06/25 13:05 Objective Narrative Objective Narrative: VS: first BP noted to be mildly elevated recently UCs: q 2-3 minutes, moderate to palpation FHTs: 130s, no decels, + accels, moderate variability SVE: 5 cm / 80% / -1 Pitocin: 14 mU / min Subjective Interval history since last seen: Oriana is starting to get teary with contractions, as they are intensifying. She is coping really well and has great support from her spouse. ROS: - denies headache, denies scotoma, denies upper abdominal pain Results Hemoglobin/Hematocrit: Hgb 11.1 g/dL (11.2-15.7) L 02/06/25 13:05 Hct 34.1 % (36.0-46.0) L 02/06/25 13:05 Abnormal Lab Findings: Abnormal Labs 02/06/25 13:05 Hgb 11.1 L Hct 34.1 L MCH 26.7 L RDW 15.1 H MPV 11.4 H
--- NOTE | 2025-02-06 19:24 | OBVDS_ITS ---
Date of service: 02/06/25 Time of Service: 19:24 OB Labor/ Delivery Information Baby A Delivery Delivery Method: Spontaneaous Presentation: Cephalic Cephalic Position: Vertex Vertex Position: Right Occipital Anterior Cord Description-Baby A: 3 Vessels, Nuchal Cord (Loose, did not need to be reduced) and Clamped/Cut (after 2 minutes of age) Amniotic Fluid: Clear Estimated Blood Loss: 350 Delivery Outcome: Liveborn Infant Transferred: Remains with Mother Providers Nurse Warehouse Shipping Receiving Clerk: Sheila Lezama Nurse: Darleen Perry Nurse: Anamaria Luna RN Other: Megan Andres RN Labor/Delivery Information Number of Babies in Womb: 1 Steroids Given: None Reason Steroids Not Administered: N/A Group Beta Strep: Negative Antibiotics Administered: No Maternal Complications: None Shoulder Dystocia: No Stages of Labor Onset of Labor Date: 02/06/25 Onset of Labor Time: 13:30 Complete Dilatation Date: 02/06/25 Complete Dilatation Time: 18:52 Labor - Stage 1 Duration: 5 hours and 22 minutes ROM Baby A: 02/06/25 ROM Baby A: 17:20 ROM Total Time- Baby A: [id number] Delivery Date-Baby A: 02/06/25 Delivery Time-Baby A: 19:00 Labor Stage 2 Duration: 8 minutes Placenta Delivery Date-Baby A: 02/06/25 Placenta Delivery Time-Baby A: 19:08 Labor-Stage 3 Duration: 8 minutes Total Length of Labor-Baby A: 5 hours and 30 minutes Placenta Cultured: No Placenta Status: Delivered Baby A Infant Gender: Female Gestational Status: Term (39-41.6 wks) Gestational Age in Weeks/Days: 40 Weeks and 5 Days Length-Baby A: 21 in Score-1 Minute Interval(Baby A) Heart Rate-1 minute: 100 BPM or Greater Respiratory Effort- 1 minute: Slow Respiration/Weak Cry Muscle Tone-1 minute: Active Movement Reflex Response-1 minute: Prompt Response Color-1 minute: Bluish Hands or Feet Total Score-1 minute: 8 Score-5 Minute Interval(Baby A) Heart Rate- 5 minute: 100 BPM or Greater Respiratory Effort-5 minute: Spontaneous/Strong Cry Muscle Tone-5 minute: Active Movement Reflex Response-5 minute: Prompt Response Color-5 minute: Bluish Hands or Feet Total Score- 5 minute: 9 Note: Now Gestational age: 40 weeks 5d 1st stage of labor: Induction of labor using Pitocin then AROM. Pitocin was at 14 mU / min at the time of AROM and was steadily decreased after AROM and she ultimately was discontinued from Pitocin just prior to the second stage of labor. She used her internal strength and nitrous oxide for pain relief. 2nd stage of labor: She had a strong urge to push prior to full dilation. She consented to manual reduction of the anterior rim which was done successfully, after which the was found to be a +1 station. In a semi-reclining position, she had a NSVB of a viable female infant. The was born OA, and restituted to ROT. The shoulder and body delivered easily. A loose nuchal cord was appreciated which did not need to be reduced. The infant was immediately vigorous, and was placed on the maternal abdomen where she continued to cry, and was dried. 3rd stage of labor: Dilute IV Pitocin was given for active management of the 3rd stage of labor. At 2-3 minutes of age when placental separation bleeding was noted, the cord was double clamped by this CNM and transected by the 's father. Cord blood was collected for routine analysis. The placenta expelled spontaneously, intact, 3-V cord, Peres mechanism, notable for trailing membranes. The fundus was massaged and found to be firm. No clots were expressed despite vigorous massage. EBL 350. The perineum was inspected and to be intact. A deeper inspection of the vagina was done to assess for membranes and none were seen. Mother and infant stable at the conclusion of this note. Intrapartum complications: precipitous active phase of labor
[2025-02-06] MEDS: Ibuprofen 600 MG TAB PO (19:34)
[2025-02-06] MEDS: Acetaminophen 325 MG TAB 650 MG PO (19:34)
[2025-02-07] MEDS: Acetaminophen 325 MG TAB 650 MG PO ×5 (01:10→22:30)
[2025-02-07] MEDS: Ibuprofen 600 MG TAB PO ×4 (01:11→20:35)
[2025-02-07] MEDS: Docusate Sodium 100 MG CAP PO (08:04)
[2025-02-07 08:06] VITALS: BP 128/65; PULSE 86; RESP 16; TEMP 36.9; O2SAT 99
--- NOTE | 2025-02-07 10:08 | W.PM.OBPNV1 ---
Date of service: 02/07/25 Time of Service: 10:08 Assessment and Plan Assessment and plan (1) Single live : Status: Acute (2) Vaginal delivery: Status: Acute (3) Maternal varicella, non-immune: Status: Acute (4) Rh negative status during : Status: Acute Assessment and plan: A: Postpartdum day #1 - uncomplicated and course P: - RhoGAM not indicated per blood type - Recommended varicella vaccination given non-immunity, which she accepts today - Discussed sleep hygiene as primary prevention for mood disorders - Bleeding precautions reviewed, discussed possibility she may have trailing membranes in the uterus and need to call if her bleeding become heavy - Anticipate discharge home tomorrow Subjective Subjective Interval history: Oriana is a day #1 after an uncomplicated NSVB. She feels good about her experiene, surprised how quickly it went despite being induced, happy with her decision not to have an epidural. She denies complaints this morning. She is leaning to going home early tomorrow morning She has adequate support at home. She is without difficulty. ROS: Constitutional: denies fever, denies chills, pain manageable with PO meds HEENT: denies scotoma / visual changes Respiratory: denies SOB Cardiovascular: denies chest pain, denies dizziness when moving about the room Breast: denies nipple pain Gastrointestinal: + flatus, no BM since delivery, tolerating advanced diet Urinary: denies dysuria, voiding spontaneously OB: lochia is lessening, after pains are manageable Neurologic: denies headache Psychiatric: denies anxiety, denies depression, sleep well Exam Physical Exam Vital signs: Temp Pulse Resp BP Pulse Ox 98.5 F 86 16 128/65 99 02/07/25 08:06 02/07/25 08:06 02/07/25 08:06 02/07/25 08:06 02/07/25 08:06 Narrative: General: well-appearing, NAD Neck: supple, NT Respiratory: CTAB, unlabored CV: NST without murmur Breast: nipples intact bilaterally GI: soft, NT : fundus firm at 2 FB below umbilicus, Perineum deferred as intact and pt is without complaints MSK: no homans, no clonus, trace bilateral LEXT edema Integument: warm, dry, pink Psychiatric: cooperative, appropriate mood and affect Results Hemoglobin/Hematocrit: Hgb 11.1 g/dL (11.2-15.7) L 02/06/25 13:05 Hct 34.1 % (36.0-46.0) L 02/06/25 13:05 Abnormal Lab Findings: Abnormal Labs 02/06/25 13:05 Hgb 11.1 L Hct 34.1 L MCH 26.7 L RDW 15.1 H MPV 11.4 H
[2025-02-07] MEDS: Varicella Virus Vaccine (Live) 0.5 ML SC (12:04)
[2025-02-07 20:05] VITALS: BP 119/69; PULSE 74; RESP 18
[2025-02-08] MEDS: Ibuprofen 600 MG TAB PO ×2 (02:40→08:35)
[2025-02-08 08:29] VITALS: BP 141/65; PULSE 91; RESP 16; TEMP 36.9; O2SAT 98
[2025-02-08] MEDS: Acetaminophen 325 MG TAB 650 MG PO (08:34)
[2025-02-08 09:42] VITALS: BP 110/67; PULSE 80
--- NOTE | 2025-02-08 10:00 | W.PM.OBPNV1 ---
Date of service: 02/08/25 Time of Service: 10:00 Assessment and Plan Assessment and plan (1) Vaginal delivery: Status: Acute Assessment and plan: A: PPD#2, nml recovery P: RhoGam given yesterday Offer Varicella vaccine Written instructions reviewed and given to pt F/up at 2 & 6 weeks Subjective Subjective Patient comments: No complaints, Pain well controlled, Tolerating diet and Flatus present Patient's Mood: happy baby status: Doing well, Nursing well, Rooming in and Strong Bonding Observed [place] feeding status: Exclusively breast feeding Exam Physical Exam Vital signs: Temp Pulse Resp BP Pulse Ox 98.4 F 80 16 110/67 98 02/08/25 08:29 02/08/25 09:42 02/08/25 08:29 02/08/25 09:42 02/08/25 08:29 Vital Signs Reviewed: Yes Constitutional Constitutional: no acute distress, obese and cooperative HEENT Exam HEENT Exam: Normal Neck Exam Neck Exam: Normal Breast Exam Bilateral: Breast Exam: Normal and Soft Nipple Exam: Normal and Uninjured Respiratory Exam Respiratory Exam: Normal Cardiovascular Exam Cardiovascular Exam: Normal Abdominal Exam Abdomen: Other (soft and nontender) Fundal Exam Fundus: Below Umbilicus and Firm Rectal Exam Rectal Exam: Normal Exam Perineum: Intact Extremities Exam Extremity Exam: Normal, Full ROM and Warm to Touch Back/Spine/Pelvis Exam Back Exam: Normal Skin Exam Skin Exam: Normal Neurological Exam Neurological Exam: Normal Psychiatric Exam Psychiatric Exam: Normal
--- NOTE | 2025-02-08 10:20 | DSE_ITS ---
Date of service: 02/08/25 Time of Service: 10:20 DS: Diagnosis Discharge Diagnosis (1) Vaginal delivery: Status: Acute Discharge Plan Disposition Patient Disposition: Home Condition: Good Discharge Details Reason For Visit: 40 week gestation encounter for induction of labor Admit Date/Time: 02/06/25 12:34 Admit Provider: Sheila Lezama Attending Provider: Sheila Lezama [facility] Hospital Course: IOL for elevated BMI, on HD#1, nml course, discharge on PPD#2 Home Meds and New Rx's Prescriptions: No Action ferrous gluconate 240 mg (27 mg iron) tablet 240 mg PO DAILY Adult 50 Plus Probiotic 4 billion cell capsule 4 cell PO DAILY docusate sodium [Stool Softener] 100 mg capsule 100 mg PO DAILY PRN PNV,calcium [id number]-[id number] acid 27 mg iron- 1 mg tablet 1 tab PO DAILY Qty: 90 5RF Rx Instructions: give with food (meal/snack) magnesium 200 mg tablet 400 mg PO DAILY cyproheptadine 4 mg tablet See Rx Instructions .ROUTE .COMPLEX Qty: 90 3RF Dose Instruction: TAKE TWO TABLETS BY MOUTH EVERY EVENING AT BEDTIME Rx Instructions: TAKE TWO TABLETS BY MOUTH EVERY EVENING AT BEDTIME Discharge Instructions Additional Instructions: Please keep your 2 and 6 week appointments with the midwives, call for any and all concerns and questions. Stand Alone Forms: BC Instructions, BC Post Vaginal Deliver Activity:: Activity as Tolerated Equipment/Supplies:: No Equipment Needed Diet:: Normal Diet OB:DS Summary Summary Vaginal Delivery Method: Spontaneaous Episiotomy Description: None Laceration Description: None Laceration Extension: N/A Contraception Discussed Contraception Discussed: Yes Contraceptive Plan: Control Pill/Patch and Vasectomy, Infant Gender-Baby A: Female weight: 9 lb 0.623 oz Status at Discharge Functional status at discharge: independent ambulation Overall status at discharge: patient is progressing back to baseline Mental Status: mental status grossly normal Speech and Movement: speech and movement normal and speech clear Mood: congruent mood Affect: normal affect Exam Physical Exam Vital signs: Temp Pulse Resp BP Pulse Ox 98.4 F 80 16 110/67 98 02/08/25 08:29 02/08/25 09:42 02/08/25 08:29 02/08/25 09:42 02/08/25 08:29 Vital Signs Reviewed: Yes Constitutional Constitutional: no acute distress, obese and cooperative HEENT Exam HEENT Exam: Normal Neck Exam Neck Exam: Normal Breast Exam Bilateral: Breast Exam: Normal and Soft Respiratory Exam Respiratory Exam: Normal Cardiovascular Exam Cardiovascular Exam: Normal Abdominal Exam Abdomen: Other (soft and nontender) Fundal Exam Fundus: Below Umbilicus and Firm Rectal Exam Rectal Exam: Normal Exam Perineum: Intact Extremities Exam Extremity Exam: Normal, Full ROM and Warm to Touch Back/Spine/Pelvis Exam Back Exam: Normal Skin Exam Skin Exam: Normal Neurological Exam Neurological Exam: Normal Psychiatric Exam Psychiatric Exam: Normal PFSH All Active Problems (Updated 02/08/25 @ 10:04 by Holley Engle) Maternal varicella, non-immune (Acute) Vaginal delivery (Acute) Obstructive sleep apnea (Chronic) CPAP QHS Migraine headache without aura (Chronic) Obesity, Class III, BMI 40-49.9 (morbid obesity) (Chronic) Medical History (Updated 02/08/25 @ 10:04 by Holley Engle) History of gestational diabetes in prior , currently Rh negative status during Anemia affecting 40 weeks gestation of Encounter for induction of labor Single live Hirsutism treated with spironolactone Mixed stress and urge urinary incontinence IBS (irritable bowel syndrome) Hyperlipidemia Pain in right foot Exostosis of right foot Ingrown toenail of right foot Depressive disorder Generalized anxiety disorder Kidney stones Urology eval w/ cysto and retrograde negative for ureteral stone. Anal fissure Surgical History H/O cystoscopy (09/16/15) S/P right knee arthroscopy (12/29/14) with partial lateral meniscetomy, MCL graft; at [facility] Family History Mother Diabetes GDM Father Alcohol abuse Depression Sister Depression Sister No problems noted. Brother No problems noted. Maternal Grandfather Type 2 diabetes mellitus Diabetes Type II SVT (supraventricular tachycardia) age 72 Heart disease Maternal Grandmother , Metastatic breast cancer Breast cancer Paternal Grandfather Celiac disease Paternal Grandmother Depression Migraines Son No problems noted. Son No problems noted. Maternal Aunt Breast cancer Social History Smoking/Tobacco Use Status: Former Tobacco Use Second Hand Exposure: Yes Smoking risk assessment performed?: Yes Alcohol Intake: never Drug use: Never Substance use type: does not use Caregiver/Support person: No Household members: spouse and children Housing: house Communication Needs: None Do you need help understanding health information?: Never current occupation: SENIOR ADMINISTRATIVE ASSISTANT Pets and animals: Yes Pets and animals: dog(s) Sexually active: Yes Do you think of yourself as: straight/heterosexual Current gender identity: female What is your relationship status?: How often do you talk on the phone with friends or family?: three or more times per week How often do you get together with friends or relatives?: three or more times per week How often do you attend taoism or sikhism services?: 1-3 times per year Do you belong to any clubs or organized social groups?: no Panel score (0-1 are the most socially isolated patients): 2 Duration: < 15 minutes/day Frequency: 1-2 times per week Jeri/Oriental Orthodox: Congregation Seatbelt use: sometimes Helmet use: Yes Helmet use: always Drive intox or ride w/intox stacker driver: No Do you feel safe at home: Yes Do you feel safe in your relationship?: Yes Female Reproductive History Menstrual control method: pills History History 3 Para 2 Hx # Term Pregnancies 2 Multiple births 0 Hx # Pregnancies 0 Ectopic pregnancies 0 AB induced 0 Hx Number of Living Children 2 AB spontaneous 0 Past Pregnancies Del. Date GA/Weeks # Preg Succ Route Wgt Sex Labor Lgth Anesth esia Location [facility] 12/31/19 40 No vaginal 8 lb 10 oz Male 13 regional Darryl Stack CNM; Jarek Corbin MD present 07/29/22 38 No Yes vaginal 9 lb 5.68 oz Male 13 hours [facility] Delivery Date: 12/31/19 Last Updated by: Glo Morrell CNM IOL for GDM, misoprostol and pitocin after epidural. GBS pos. Tyler Castano. Pushing for 5 hours Delivery Date: 07/29/22 Last Updated by: Holley Engle Spont labor, Jeremias GBS, hypospadias, surgery at 3 y.o. DS: Data Vitals/I&O Vitals and I&O: Vital Signs Temperature 98.4 F 02/08/25 08:29 Temperature Source Oral 02/08/25 08:29 Pulse 80 02/08/25 09:42 Pulse Rhythm Regular 02/08/25 08:30 Respiratory Rate 16 02/08/25 08:29 Respiratory Depth Normal 02/08/25 08:30 Blood Pressure 110/67 02/08/25 09:42 Blood Pressure Mean 81 02/08/25 09:42 Pulse Oximetry 98 02/08/25 08:29 Oxygen Delivery Method Room Air 02/06/25 13:00 Oxygen Flow Rate 0 02/06/25 13:00 Pain Level 4 02/08/25 08:35 Intake & Output 02/07/25 02/07/25 02/08/25 11:59 23:59 11:59 Other: Urine Color Pale Pale
== END 2025-02-08 11:00 | disposition home or self-care (01) | DRG 806 ==
PROVIDERS: Admitting Provider Advanced Practice Midwife; PCP Nurse Practitioner Family; Visit Provider Advanced Practice Midwife
DX: O99.214 Obesity complicating childbirth (principal); O99.354 Diseases of the nervous system complicating childbirth; Z37.0 Single live birth; O26.899 Other specified pregnancy related conditions, unspecified trimester; Z67.91 Unspecified blood type, Rh negative; Z28.39 Other underimmunization status; Z3A.40 40 weeks gestation of pregnancy; E66.813 Obesity, class 3; O62.3 Precipitate labor; O69.81X0 Labor and delivery complicated by cord around neck, without compression, not applicable or unspecified; O99.02 Anemia complicating childbirth; D64.9 Anemia, unspecified; O36.63X0 Maternal care for excessive fetal growth, third trimester, not applicable or unspecified; G43.909 Migraine, unspecified, not intractable, without status migrainosus; M54.32 Sciatica, left side; M54.31 Sciatica, right side
CPT/HCPCS: 85027; 86850; 86900; 86901; 90716

== ENCOUNTER 2025-02-22 15:56 | Outpatient (REF) | payer OTHER, SELFPAY | END 2025-02-22 15:57 | disposition home or self-care (01) | LOC: LBN 15:56 | PROVIDERS: PCP Nurse Practitioner Family; Visit Provider Advanced Practice Midwife | DX: R10.9 Unspecified abdominal pain (principal) | CPT/HCPCS: 87086 ==

== ENCOUNTER 2025-02-22 16:47 | Observation (INO) | payer OTHER, SELFPAY ==
--- NOTE | 2025-02-22 17:31 | HPE_ITS ---
Date of service: 02/22/25 Time of Service: 17:48 Assessment and Plan Assessment and plan (1) Retained products of conception after delivery with complications: Status: Acute Assessment and plan: Admitted to the Center under observation. CMP, CBC with diff, lactate. saline lock, NPO, Consultation with Dr Raven Nicolas re: patient's status. (2) Low back pain: Status: Acute Assessment and plan: comfort measures History of Present Illness History of Present Illness Chief Complaint: low back ache, pelvic pressure and flulike symptoms. 2 weeks post Narrative: Oriana called 02/19 report of increased bleeding which improved with rest. She called today and complains of low back ache, pelvic pressure and flulike symptoms. She is 16 days post . Exam was consistent with dark old blood with odor and some left vaginal wall tenderness. Temp reported to be 100 this afternoon and she took tylenol with good effect. She reports breast oversupply but no massess or breast tenderness. She delivered over an intact perineum. Stat US ordered at and it is consistent with retained products of conception. PFSH All Active Problems (Updated 02/22/25 @ 17:38 by Glo Morrell CNM) Retained products of conception after delivery with complications (Acute) 2 weeks follow-up (Acute) Low back pain (Acute) Pelvic pain (Acute) Abdominal pain (Acute) Maternal varicella, non-immune (Acute) Vaginal delivery (Acute) Obstructive sleep apnea (Chronic) CPAP QHS Migraine headache without aura (Chronic) Obesity, Class III, BMI 40-49.9 (morbid obesity) (Chronic) Medical History (Updated 02/22/25 @ 17:38 by Glo Morrell CNM) History of gestational diabetes in prior , currently Rh negative status during Anemia affecting 40 weeks gestation of Encounter for induction of labor Single live Hirsutism treated with spironolactone Mixed stress and urge urinary incontinence IBS (irritable bowel syndrome) Hyperlipidemia Pain in right foot Exostosis of right foot Ingrown toenail of right foot Depressive disorder Generalized anxiety disorder Kidney stones Urology eval w/ cysto and retrograde negative for ureteral stone. Anal fissure Surgical History H/O cystoscopy (09/16/15) S/P right knee arthroscopy (12/29/14) with partial lateral meniscetomy, MCL graft; at [facility] Family History Mother Diabetes GDM Father Alcohol abuse Depression Sister Depression Sister No problems noted. Brother No problems noted. Maternal Grandfather Type 2 diabetes mellitus Diabetes Type II SVT (supraventricular tachycardia) age 72 Heart disease Maternal Grandmother , Metastatic breast cancer Breast cancer Paternal Grandfather Celiac disease Paternal Grandmother Depression Migraines Son No problems noted. Son No problems noted. 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 Pets and animals: Yes Pets and animals: dog(s) Sexually active: Yes Do you think of yourself as: straight/heterosexual Current gender identity: female What is your relationship status?: How often do you talk on the phone with friends or family?: three or more times per week How often do you get together with friends or relatives?: three or more times per week How often do you attend jewish or protestant services?: 1-3 times per year Do you belong to any clubs or organized social groups?: no Panel score (0-1 are the most socially isolated patients): 2 Duration: < 15 minutes/day Frequency: 1-2 times per week Jeri/Baptism: Tenriism Seatbelt use: sometimes Helmet use: Yes Helmet use: always Drive intox or ride w/intox tower truck driver: No Do you feel safe at home: Yes Do you feel safe in your relationship?: Yes Female Reproductive History Menstrual control method: pills History History 2 3 Para 3 Hx # Term Pregnancies 3 Multiple births 0 Hx # Pregnancies 0 Ectopic pregnancies 0 AB induced 0 Hx Number of Living Children 3 AB spontaneous 0 Past Pregnancies Del. Date GA/Weeks # Preg Succ Route Wgt Sex Labor Lgth Anesth esia Location Prov [facility] 12/31/19 40 No vaginal 8 lb 10 oz Male 13 regional Darryl Stack CNM; Jarek Corbin MD present 07/29/22 38 No Yes vaginal 9 lb 5.68 oz Male 13 hours [facility] 02/06/25 40 No Yes vaginal 9 lb 0.6 oz Female 5hrs 30 min regional [facility]ENDA [facility]rios Delivery Date: 12/31/19 Last Updated by: Glo Morrell CNM IOL for GDM, misoprostol and pitocin after epidural. GBS pos. Tyler Castano. Pushing for 5 hours Delivery Date: 07/29/22 Last Updated by: Holley Engle Spont labor, Jeremias GBS, hypospadias, surgery at 3 y.o. Delivery Date: 02/06/25 Last Updated by: Raven Sims LPN Induction post dates/pitocin AROM; placenta delivery notable for trailing membranes Meds Allergies and Home Medications Allergies Allergy/AdvReac Type Severity Reaction Status Date / Time No Known Drug Allergies Allergy Other (See Verified 02/22/25 15:15 Comment) Home Medications ?Medication ?Instructions ?Recorded ?Confirmed ?Type lactobacillus combination no.9 4 4 cell PO DAILY 04/0702/22/25 History billion cell capsule (Adult 50 Plus Probiotic) docusate sodium 100 mg capsule 100 mg PO DAILY PRN 02/22/25 History (Stool Softener) vitamins with calcium 1 tab PO DAILY #90 tabs 06/01/24 02/22/25 Rx no.72-iron 27 mg-folic acid 1 mg tablet magnesium 200 mg tablet 400 mg PO DAILY 09/14/24 History cyproheptadine 4 mg tablet See Rx Instructions .Route 10/26/24 02/22/25 Rx .COMPLEX #90 tabs ferrous gluconate 240 mg (27 mg 240 mg PO DAILY 02/22/25 History iron) tablet norethindrone (contraceptive) 0.35 0.35 mg PO DAILY #8 4 tabs 02/22/25 02/22/25 Rx mg tablet (Carly) Exam Const General: cooperative and healthy appearing Nutritional Appearance: overweight Orientation: alert HENMT Head: normal to inspection Resp Effort & Inspection: normal respiratory effort Auscultation: clear to auscultation bilaterally Cardio Rate: regular rate Rhythm: regular rhythm Heart Sounds: no murmurs GI Palpation: soft and nontender External Female Exam: normal external appearance Speculum Exam - Vagina: normal appearance of the vagina (dark blood near cervix with old blood odor) Speculum Exam - Cervix: normal appearance of the cervix Other: uterus slightly tender with abdominal exam. Skin General skin exam: no rashes or lesions noted Extrem General: normal to inspection Psych Appearance: grossly normal Speech and Movement: speech and movement normal Mood: congruent mood Affect: normal affect Results Labs 02/22/25 17:10 02/22/25 17:10 Time Spent Time spent with Patient: <40 minutes Time was spent: preparing to see the patient(eg.review tests), obtaining and/or reviewing separately otained hiistory, ordering medications,tests, procedures, referring, communicating with other health medical care evaluation specialist, indepentently interpreting results and counseling the patient
[2025-02-22] MEDS: Normal Saline Flush 10 ML SYR IVP ×2 (17:40→20:00)
[2025-02-22 17:41] VITALS: BP 133/75; PULSE 72; RESP 16; TEMP 36.9; O2SAT 98
[2025-02-22 17:41] LABS: Abs Immature Grans 0.10 10^3/uL (0.0-0.06); HCT 34.9 % (36.0-46.0); HGB 11.2 g/dL (11.2-15.7); Immature Grans % 1.2 %; MCH 26.5 pg (27.0-33.0); MCHC 32.1 % (32.0-36.0); MCV 83 fL (80-95); MPV 9.9 fL (8.0-11.0); Platelet Count 247 10^3/uL (130-400); RBC 4.23 10^6/uL (3.93-5.22); RDW 14.5 % (11.7-14.6); RDW-SD 43.3 fL; WBC 8.24 10^3/uL (4.4-10.8)
[2025-02-22 17:56] LABS: ALT 42 U/L (14-59); AST 17 U/L (15-37); Albumin 3.7 g/dL (3.4-5.0); Alkaline Phosphatase 115 U/L (46-116); Anion Gap 11.2 mmol/L (3-11); BUN 12 mg/dL (7-18); Bilirubin, Total 0.1 mg/dL (0.2-1.0); CO2 25.8 mmol/L (21.0-32.0); Calcium 8.8 mg/dL (8.5-10.1); Chloride 103 mmol/L (98-107); Estimated GFR 119.99 (mL/min/1.73m2); Glucose 92 mg/dL (74-106); Potassium 3.9 mmol/L (3.5-5.1); Sodium 140 mmol/L (136-145); Total Protein 7.3 g/dL (6.4-8.2)
--- NOTE | 2025-02-22 18:54 | OBCE_ITS ---
Date of service: 02/22/25 Time of Service: 18:54 Assessment and Plan Assessment and plan (1) Vaginal delivery: Status: Acute Assessment and plan: Patient roughly 2 weeks status post vaginal which was uncomplicated. Qualitative blood loss at that time 350 mL. Placenta appeared to be intact. (2) 2 weeks follow-up: Status: Acute (3) Retained products of conception after delivery with complications: Status: Acute Assessment and plan: Patient is having some leg symptoms which include low-grade temp at home, and malaise. She is breast-feeding without difficulty. She had some low pelvic pressure but no discrete uterine tenderness. She is not an extremis. She has normal vital signs, and normal laboratory studies with no white count or left shift. Her lactate is normal. In light of the fact that she has an ultrasound which shows a 1.7 cm possible collection versus retained products, she will be admitted overnight. She will receive antibiotics empirically for the possibility of an early endometritis. She also received misoprostol in hopes of expulsion of any clot, debris, or tissue. If there is no improvement or resolution, surgical intervention may be warranted. We had a lengthy conversation today regarding the potential complications of surgical intervention with uterine perforation versus formation of synechiae. A conservative approach will be taken. She be placed empirically on clindamycin and gentamicin along with her dose of misoprostol. She will repeat CBC in the morning and close and careful evaluation. All of her questions were answered today. History of Present Illness History of Present Illness Chief Complaint: Possible retained products of conception Narrative: Patient is a 30-year-old female 3 para 3 who is seen in the office today approximately 2 weeks status post vaginal . She had an uncomplicated vaginal delivery on 02/06/2025 with a quantitative blood loss of 350 cc and a total labor time of 5 hours and 3 minutes. She was group B strep negative. She had artificial rupture of membranes and Pitocin augmentation initially. Orders she had intact in the shoulder with membranes. Over the course of the past few days she noticed a slight decrease in her mental health standpoint close some abdominal discomfort. She was noted to have a home temperature of 100 degrees. She had some chills but no discrete fever otherwise. She is breast-feeding without difficulty. She denies any breast tenderness or engorgement that would be consistent with mastitis. She was seen and evaluated in the office and ultrasound performed and diagnostic imaging. Her diagnostic imaging ultrasound showed some free fluid within the endocervical canal, and a total of 1.7 cm heterogeneous thickness without discrete blood flow. This may be consistent with changes versus retained products of conception. She was admitted to the center for this reason and had baseline evaluation with laboratory studies and vital signs. Her vital signs are stable. Temperature is 98.4 with a blood pressure of 133/75 and a pulse of 94. Her laboratory studies included CBC which showed a white count of lactate is normal at 0.9 with a BUN of 12 and creatinine of 0.7. On examination, she has no particular uterine tenderness. She clinically appears stable and not septic. eleven 8.2 without left shift and hemoglobin stable at 11.2. Consults Consult date: 02/22/25 Requesting physician: Glo Morrell Review of Systems Narrative: As per the history of present illness. Constitutional Constitutional: Reports as per HPI, Reports system reviewed and no additional complaints, except as documented and Reports chills Eyes Eyes: Reports system reviewed and no additional complaints, except as documented ENT Ears, Nose, Mouth, and Throat: Reports system reviewed and no additional complaints, except as documented Cardiovascular Cardiovascular: Reports system reviewed and no additional complaints, except as documented Respiratory Respiratory: Reports system reviewed and no additional complaints, except as documented Gastrointestinal Gastrointestinal: Reports system reviewed and no additional complaints, except as documented Genitourinary Genitourinary: Reports as per HPI PFSH All Active Problems (Updated 02/22/25 @ 17:38 by Glo Morrell CNM) Retained products of conception after delivery with complications (Acute) 2 weeks follow-up (Acute) Low back pain (Acute) Pelvic pain (Acute) Abdominal pain (Acute) Maternal varicella, non-immune (Acute) Vaginal delivery (Acute) Obstructive sleep apnea (Chronic) CPAP QHS Migraine headache without aura (Chronic) Obesity, Class III, BMI 40-49.9 (morbid obesity) (Chronic) Medical History (Updated 02/22/25 @ 17:38 by Glo Morrell CNM) History of gestational diabetes in prior , currently Rh negative status during Anemia affecting 40 weeks gestation of Encounter for induction of labor Single live Hirsutism treated with spironolactone Mixed stress and urge urinary incontinence IBS (irritable bowel syndrome) Hyperlipidemia Pain in right foot Exostosis of right foot Ingrown toenail of right foot Depressive disorder Generalized anxiety disorder Kidney stones Urology eval w/ cysto and retrograde negative for ureteral stone. Anal fissure Surgical History H/O cystoscopy (09/16/15) S/P right knee arthroscopy (12/29/14) with partial lateral meniscetomy, MCL graft; at [facility] Family History Mother Diabetes GDM Father Alcohol abuse Depression Sister Depression Sister No problems noted. Brother No problems noted. Maternal Grandfather Type 2 diabetes mellitus Diabetes Type II SVT (supraventricular tachycardia) age 72 Heart disease Maternal Grandmother , Metastatic breast cancer Breast cancer Paternal Grandfather Celiac disease Paternal Grandmother Depression Migraines Son No problems noted. Son No problems noted. Maternal Aunt Breast cancer Social History Smoking/Tobacco Use Status: Former Tobacco Use Second Hand Exposure: Yes Smoking risk assessment performed?: Yes Alcohol Intake: never Drug use: Never Substance use type: does not use Caregiver/Support person: No Household members: spouse and children Housing: house Communication Needs: None Do you need help understanding health information?: Never current occupation: [employer] MANAGER Pets and animals: Yes Pets and animals: dog(s) Sexually active: Yes Do you think of yourself as: straight/heterosexual Current gender identity: female What is your relationship status?: How often do you talk on the phone with friends or family?: three or more times per week How often do you get together with friends or relatives?: three or more times per week How often do you attend restorationism or religion services?: 1-3 times per year Do you belong to any clubs or organized social groups?: no Panel score (0-1 are the most socially isolated patients): 2 Duration: < 15 minutes/day Frequency: 1-2 times per week Jeri/Roman Catholic: Restoration Seatbelt use: sometimes Helmet use: Yes Helmet use: always Drive intox or ride w/intox ambulette driver: No Do you feel safe at home: Yes Do you feel safe in your relationship?: Yes Female Reproductive History Menstrual control method: pills History History 2 3 Para 3 Hx # Term Pregnancies 3 Multiple births 0 Hx # Pregnancies 0 Ectopic pregnancies 0 AB induced 0 Hx Number of Living Children 3 AB spontaneous 0 Past Pregnancies Del. Date GA/Weeks # Preg Succ Route Wgt Sex Labor Lgth Anesth esia Location Prov Complic 12/31/19 40 No vaginal 8 lb 10 oz Male 13 regional Darryl Stack CNM; Jarek Corbin MD present 07/29/22 38 No Yes vaginal 9 lb 5.68 oz Male 13 hours [facility] 02/06/25 40 No Yes vaginal 9 lb 0.6 oz Female 5hrs 30 min regional [facility] Delivery Date: 12/31/19 Last Updated by: Glo Morrell CNM IOL for GDM, misoprostol and pitocin after epidural. GBS pos. Tyler Castano. Pushing for 5 hours Delivery Date: 07/29/22 Last Updated by: Holley Engle Spont labor, Jeremias GBS, hypospadias, surgery at 3 y.o. Delivery Date: 02/06/25 Last Updated by: Raven Sims LPN Induction post dates/pitocin AROM; placenta delivery notable for trailing membranes Exam Const General: cooperative, healthy appearing, comfortable, no acute distress, well developed and well groomed [facility] Head: normal to inspection Eyes General: appearance normal, both eyes and all related structures Neck Neck: normal visual inspection, supple, no anterior neck swelling and nontender Resp Effort & Inspection: normal respiratory effort, no audible wheezes and no cough Cardio Rate: regular rate Rhythm: regular rhythm GI Inspection: normal to inspection and large pannus Palpation: soft, not firm and no guarding Skin General skin exam: no rashes or lesions noted Extrem General: normal to inspection, no clubbing, cyanosis or edema and no calf tenderness bilaterally Psych Appearance: grossly normal Mental Status: mental status grossly normal Speech and Movement: speech and movement normal Mood: congruent mood Insight: insight good Judgment: judgment good Results Last Vital Signs Temp 98.4 F 02/22/25 17:41 Pulse 72 02/22/25 17:41 Resp 16 02/22/25 17:41 BP 133/75 02/22/25 17:41 Pulse Ox 98 02/22/25 17:41 Labs 02/22/25 17:25 02/22/25 17:25 Labs: Laboratory Results - last 24 hr 02/22/25 17:25 WBC 8.24 RBC 4.23 Hgb 11.2 Hct 34.9 L MCV 83 MCH 26.5 L MCHC 32.1 RDW 14.5 Plt Count 247 MPV 9.9 Immature Gran % 1.2 Neutrophils % 66.5 Lymphocytes % 23.9 Monocytes % 6.7 Eosinophils % 1.5 Basophils % 0.2 Nucleated RBC % 0.0 Absolute Neutrophils 5.48 Absolute Lymphocytes 1.97 Absolute Monocytes 0.55 Absolute Eosinophils 0.12 Absolute Basophils 0.02 VBG Lactate 0.9 Sodium 140 Potassium 3.9 Chloride 103 Carbon Dioxide 25.8 Anion Gap 11.2 H BUN 12 Creatinine 0.7 Est GFR (CKD-EPI 2020) 119.99 Glucose 92 Calcium 8.8 Total Bilirubin 0.1 L AST 17 ALT 42 Alkaline Phosphatase 115 Total Protein 7.3 Albumin 3.7 ABO/Rh AB Negative Antibody Screen NEGATIVE
[2025-02-22] MEDS: miSOPROStol 100 MCG TAB 800 MCG PO (19:21)
[2025-02-22] MEDS: CLINDAMYCIN 900 MG/50 ML BAG 50 MG IVPB (19:54)
[2025-02-22] MEDS: Cyproheptadine 4 MG TAB 8 MG PO (20:57)
[2025-02-22] MEDS: Fluconazole 150 MG TAB PO (20:59)
[2025-02-22] MEDS: Hydrocortisone 1% CR 30 GM TUBE TP (20:59)
[2025-02-22] MEDS: Normal Saline 100 ML 200 ML (21:30)
[2025-02-22 21:33] VITALS: BP 115/47; PULSE 85; RESP 18; TEMP 37.2
[2025-02-22] MEDS: Ibuprofen 600 MG TAB PO (22:22)
[2025-02-23 00:59] VITALS: BP 120/50; PULSE 76; RESP 18; TEMP 37.1
[2025-02-23] MEDS: CLINDAMYCIN 900 MG/50 ML BAG 50 MG IVPB ×3 (02:51→15:04)
[2025-02-23] MEDS: Ibuprofen 600 MG TAB PO ×3 (03:47→16:02)
[2025-02-23 05:14] VITALS: BP 111/58; PULSE 75; RESP 18; TEMP 37.1
[2025-02-23 05:26] LABS: Abs Immature Grans 0.02 10^3/uL (0.0-0.06); HCT 34.4 % (36.0-46.0); HGB 10.8 g/dL (11.2-15.7); Immature Grans % 0.3 %; MCH 26.2 pg (27.0-33.0); MCHC 31.4 % (32.0-36.0); MCV 84 fL (80-95); MPV 10.4 fL (8.0-11.0); Platelet Count 224 10^3/uL (130-400); RBC 4.12 10^6/uL (3.93-5.22); RDW 14.6 % (11.7-14.6); RDW-SD 44.2 fL; WBC 7.40 10^3/uL (4.4-10.8)
[2025-02-23 08:08] VITALS: BP 112/58; PULSE 88; RESP 14; TEMP 37; O2SAT 99
--- NOTE | 2025-02-23 09:47 | W.PM.PROGNOT ---
Date of Service Date of service: 02/23/25 Time of Service: 09:47 Assessment and Plan Assessment and plan (1) Retained products of conception after delivery with complications: Status: Acute Assessment and plan: Dr Nicolas and I visited Oriana. Dr. Nicolas advised an additional dose of misoprostol this morning. Will continue to observe and consider discharge this evening after 24 hours of antibiotics and she is stable. Subjective Subjective Patient reports: no new complaints, tolerating a regular diet and afebrile Interval history since last seen: Oriana rested well last night and has been caring for her baby and . She denies new symptoms and still reports low back discomfort. She denies chills or flulike symptoms. She has received 3 doses of clindamycin and one dose of gentamycin. She had an increase in bleeding which was brighter than previously after first dose of misoprostol 800 mcg. Exam Narrative Exam Narrative: Oriana appears well and is sitting up nursing her baby. Neck Neck: no lymphadenopathy Resp Effort & Inspection: normal respiratory effort Auscultation: clear to auscultation bilaterally Cardio Rate: regular rate Rhythm: regular rhythm Heart Sounds: no murmurs GI Palpation: soft Rectal Exam - female: No tenderness Skin General skin exam: no rashes or lesions noted Extrem General: normal to inspection Psych Mental Status: mental status grossly normal Speech and Movement: speech and movement normal Mood: congruent mood Objective Last Vital Signs Temp 98.6 F 02/23/25 08:08 Pulse 88 02/23/25 08:08 Resp 14 02/23/25 08:08 BP 112/58 L 02/23/25 08:08 Pulse Ox 99 02/23/25 08:08 Laboratory Results - last 24 hr 02/22/25 02/23/25 17:25 05:10 WBC 8.24 7.40 RBC 4.23 4.12 Hgb 11.2 10.8 L Hct 34.9 L 34.4 L MCV 83 84 MCH 26.5 L 26.2 L MCHC 32.1 31.4 L RDW 14.5 14.6 Plt Count 247 224 MPV 9.9 10.4 Immature Gran % 1.2 0.3 Neutrophils % 66.5 58.8 Lymphocytes % 23.9 34.1 Monocytes % 6.7 5.3 Eosinophils % 1.5 1.2 Basophils % 0.2 0.3 Nucleated RBC % 0.0 0.0 Absolute Neutrophils 5.48 4.36 Absolute Lymphocytes 1.97 2.52 Absolute Monocytes 0.55 0.39 Absolute Eosinophils 0.12 0.09 Absolute Basophils 0.02 0.02 VBG Lactate 0.9 Sodium 140 Potassium 3.9 Chloride 103 Carbon Dioxide 25.8 Anion Gap 11.2 H BUN 12 Creatinine 0.7 Est GFR (CKD-EPI 2020) 119.99 Glucose 92 Calcium 8.8 Total Bilirubin 0.1 L AST 17 ALT 42 Alkaline Phosphatase 115 Total Protein 7.3 Albumin 3.7 ABO/Rh AB Negative Antibody Screen NEGATIVE Time Spent with Patient Time Spent with Patient: <25 minutes Time was spent: preparing to see the patient(eg.review tests), obtaining and/or reviewing separately otained hiistory, referring, communicating with other health adult live in caregiver, indepentently interpreting results and counseling the patient
--- NOTE | 2025-02-23 10:11 | PGE_ITS ---
Date of Service Date of service: 02/23/25 Time of Service: 10:11 Assessment and Plan Assessment and plan (1) 2 weeks follow-up: Status: Acute Assessment and plan: Continue to monitor bleeding patterns. Second dose of misoprostol today. Completion of 24 hours of IV antibiotics. If stable, consider discharge home with close interval follow-up. (2) Retained products of conception after delivery with complications: Status: Acute Subjective Subjective Interval history since last seen: Patient seen and examined this morning with our meat and poultry inspector. We do lengthy conversation today regarding her plan of care. Throughout the night, she has been afebrile. Her white blood cell count this morning remains normal. Overall she is feeling the same to slightly improved. She received 1 dose of misoprostol last night with an increase in her bleeding which then has tapered off. She has received her one-time dose of gentamicin and 3 doses of clindamycin. At this point, would have conversation between watchful waiting and other intervention. I do not feel like she is a surgical candidate at this point for exploration and removal of her 1.7 cm fluid collection. She will receive a second dose of misoprostol today and we will watch over the course of the day for further issues or concerns. Objective Last Vital Signs Temp 98.6 F 02/23/25 08:08 Pulse 88 02/23/25 08:08 Resp 14 02/23/25 08:08 BP 112/58 L 02/23/25 08:08 Pulse Ox 99 02/23/25 08:08 Laboratory Results - last 24 hr 02/22/25 02/23/25 17:25 05:10 WBC 8.24 7.40 RBC 4.23 4.12 Hgb 11.2 10.8 L Hct 34.9 L 34.4 L MCV 83 84 MCH 26.5 L 26.2 L MCHC 32.1 31.4 L RDW 14.5 14.6 Plt Count 247 224 MPV 9.9 10.4 Immature Gran % 1.2 0.3 Neutrophils % 66.5 58.8 Lymphocytes % 23.9 34.1 Monocytes % 6.7 5.3 Eosinophils % 1.5 1.2 Basophils % 0.2 0.3 Nucleated RBC % 0.0 0.0 Absolute Neutrophils 5.48 4.36 Absolute Lymphocytes 1.97 2.52 Absolute Monocytes 0.55 0.39 Absolute Eosinophils 0.12 0.09 Absolute Basophils 0.02 0.02 VBG Lactate 0.9 Sodium 140 Potassium 3.9 Chloride 103 Carbon Dioxide 25.8 Anion Gap 11.2 H BUN 12 Creatinine 0.7 Est GFR (CKD-EPI 2020) 119.99 Glucose 92 Calcium 8.8 Total Bilirubin 0.1 L AST 17 ALT 42 Alkaline Phosphatase 115 Total Protein 7.3 Albumin 3.7 ABO/Rh AB Negative Antibody Screen NEGATIVE Time Spent with Patient Time Spent with Patient: 35-49 minutes Time was spent: preparing to see the patient(eg.review tests), obtaining and/or reviewing separately otained hiistory, ordering medications,tests, procedures, referring, communicating with other health skin care instructor, indepentently interpreting results and counseling the patient
[2025-02-23] MEDS: miSOPROStol 100 MCG TAB 800 MCG PO (11:02)
[2025-02-23] MEDS: Normal Saline Flush 10 ML SYR IVP (15:03)
--- NOTE | 2025-02-23 18:30 | DSE_ITS ---
Date of service: 02/23/25 Time of Service: 18:30 DS: Diagnosis Discharge Diagnosis (1) Retained products of conception after delivery with complications: Status: Acute Asessment and Plan: Oriana has completed 24 hours of antibiotics and is feeling well. She was instructed to call with pain, heavy bleeding or flulike symptoms and to take her temperature every 6 hours. Ibuprofen for pain relief PRN. She was encouraged to rest and take red raspberry tea which she took at the end of her . Discharge Plan Disposition Patient Disposition: Home Condition: Good Discharge Details Reason For Visit: post Admit Date/Time: 02/22/25 16:47 Admit Provider: Glo Morrell Attending Provider: Glo Morrell Primary Care Provider: Nishi Hoffman Home Meds and New Rx's Prescriptions: No Action ferrous gluconate 240 mg (27 mg iron) tablet 240 mg PO DAILY norethindrone (contraceptive) [Carly] 0.35 mg tablet 0.35 mg PO DAILY Qty: 84 4RF Adult 50 Plus Probiotic 4 billion cell capsule 4 cell PO DAILY docusate sodium [Stool Softener] 100 mg capsule 100 mg PO DAILY PRN PNV,calcium [id number] acid 27 mg iron- 1 mg tablet 1 tab PO DAILY Qty: 90 5RF Rx Instructions: give with food (meal/snack) magnesium 200 mg tablet 400 mg PO DAILY cyproheptadine 4 mg tablet See Rx Instructions .ROUTE .COMPLEX Qty: 90 3RF Dose Instruction: TAKE TWO TABLETS BY MOUTH EVERY EVENING AT BEDTIME Rx Instructions: TAKE TWO TABLETS BY MOUTH EVERY EVENING AT BEDTIME Discharge Instructions Activity:: Activity as Tolerated Equipment/Supplies:: No Equipment Needed Diet:: As Tolerated Discharge Orders Discharge Orders: Discharge Order (Routine); Ordered 02/23/25 Ordered By: Glo Morrell Discharge Data Discharge Date/Time-TO BE ENTERED AT DEPARTURE: 02/23/25 18:15 DS: Summary Time Spent with Patient providing and/or coordinating discharge services: Less than 30 minutes Status at Discharge Functional status at discharge: independent ambulation Overall status at discharge: patient is back to baseline Mental Status: mental status grossly normal Speech and Movement: speech and movement normal Mood: congruent mood Affect: normal affect Exam Narrative Exam Narrative: Oriana is resting comfortably with her baby. Const General: cooperative Nutritional Appearance: overweight Orientation: alert HENMT Head: normal to inspection Neck Neck: normal visual inspection Thyroid: thyroid normal Resp Effort & Inspection: normal respiratory effort Auscultation: clear to auscultation bilaterally Cardio Rate: regular rate Rhythm: regular rhythm Heart Sounds: no murmurs GI Palpation: soft and nontender Skin General skin exam: no rashes or lesions noted Lesions: no lesions Extrem General: normal to inspection Psych Appearance: grossly normal Mental Status: mental status grossly normal Speech and Movement: speech and movement normal Mood: congruent mood Affect: normal affect DS: Data Vitals/I&O Vitals and I&O: Vital Signs Temperature 98.6 F 02/23/25 08:08 Temperature Source Oral 02/23/25 08:08 Pulse 88 02/23/25 08:08 Pulse Rhythm Regular 02/23/25 08:14 Respiratory Rate 14 02/23/25 08:08 Blood Pressure 112/58 L 02/23/25 08:08 Blood Pressure Mean 76 02/23/25 08:08 Pulse Oximetry 99 02/23/25 08:08 Pain Level 3 02/23/25 16:02 Intake & Output 02/22/25 02/23/25 02/23/25 23:59 11:59 23:59 Intake Total 1150 / 1150 100 / 100 Output Total 800 / 800 Balance 350 / 350 100 / 100 Weight 278 lb 1.986 oz Intake: IV 50 / 50 100 / 100 Oral 1100 / 1100 Output: Urine 800 / 800 Other: Urine Color Pale Data Completed and Pending Labs on day of discharge: Labs from last 24 hours 02/23/25 05:10 WBC 7.40 RBC 4.12 Hgb 10.8 L Hct 34.4 L MCV 84 MCH 26.2 L MCHC 31.4 L RDW 14.6 Plt Count 224 MPV 10.4 Immature Gran % 0.3 Neutrophils % 58.8 Lymphocytes % 34.1 Monocytes % 5.3 Eosinophils % 1.2 Basophils % 0.3 Nucleated RBC % 0.0 Absolute Neutrophils 4.36 Absolute Lymphocytes 2.52 Absolute Monocytes 0.39 Absolute Eosinophils 0.09 Absolute Basophils 0.02 PFSH All Active Problems (Updated 02/22/25 @ 17:38 by Glo Morrell CNM) Retained products of conception after delivery with complications (Acute) 2 weeks follow-up (Acute) Low back pain (Acute) Pelvic pain (Acute) Abdominal pain (Acute) Maternal varicella, non-immune (Acute) Vaginal delivery (Acute) Obstructive sleep apnea (Chronic) CPAP QHS Migraine headache without aura (Chronic) Obesity, Class III, BMI 40-49.9 (morbid obesity) (Chronic) Medical History (Updated 02/22/25 @ 17:38 by Glo Morrell CNM) History of gestational diabetes in prior , currently Rh negative status during Anemia affecting 40 weeks gestation of Encounter for induction of labor Single live Hirsutism treated with spironolactone Mixed stress and urge urinary incontinence IBS (irritable bowel syndrome) Hyperlipidemia Pain in right foot Exostosis of right foot Ingrown toenail of right foot Depressive disorder Generalized anxiety disorder Kidney stones Urology eval w/ cysto and retrograde negative for ureteral stone. Anal fissure Surgical History H/O cystoscopy (09/16/15) S/P right knee arthroscopy (12/29/14) with partial lateral meniscetomy, MCL graft; at [facility] Family History Mother Diabetes GDM Father Alcohol abuse Depression Sister Depression Sister No problems noted. Brother No problems noted. Maternal Grandfather Type 2 diabetes mellitus Diabetes Type II SVT (supraventricular tachycardia) age 72 Heart disease Maternal Grandmother , Metastatic breast cancer Breast cancer Paternal Grandfather Celiac disease Paternal Grandmother Depression Migraines Son No problems noted. Son No problems noted. Maternal Aunt Breast cancer Social History Smoking/Tobacco Use Status: Former Tobacco Use Second Hand Exposure: Yes Smoking risk assessment performed?: Yes Alcohol Intake: never Drug use: Never Substance use type: does not use Caregiver/Support person: No Household members: spouse and children Housing: house Communication Needs: None Do you need help understanding health information?: Never current occupation: [employer] Pets and animals: Yes Pets and animals: dog(s) Sexually active: Yes Do you think of yourself as: straight/heterosexual Current gender identity: female What is your relationship status?: How often do you talk on the phone with friends or family?: three or more times per week How often do you get together with friends or relatives?: three or more times per week How often do you attend congregational or shinto services?: 1-3 times per year Do you belong to any clubs or organized social groups?: no Panel score (0-1 are the most socially isolated patients): 2 Duration: < 15 minutes/day Frequency: 1-2 times per week Jeri/Zoroastrian: Religion Seatbelt use: sometimes Helmet use: Yes Helmet use: always Drive intox or ride w/intox lifter driver: No Do you feel safe at home: Yes Do you feel safe in your relationship?: Yes Female Reproductive History Menstrual control method: pills History History 3 Para 3 Hx # Term Pregnancies 3 Multiple births 0 Hx # Pregnancies 0 Ectopic pregnancies 0 AB induced 0 Hx Number of Living Children 3 AB spontaneous 0 Past Pregnancies Del. Date GA/Weeks # Preg Succ Route Wgt Sex Labor Lgth Anesth esia Location [facility] 12/31/19 40 No vaginal 8 lb 10 oz Male 13 regional Darryl Stack CNM; Jarek Corbin MD present 07/29/22 38 No Yes vaginal 9 lb 5.68 oz Male 13 hours [facility] 02/06/25 40 No Yes vaginal 9 lb 0.6 oz Female 5hrs 30 min regional [facility] Delivery Date: 12/31/19 Last Updated by: Glo Morrell CNM IOL for GDM, misoprostol and pitocin after epidural. GBS pos. Tyler Castano. Pushing for 5 hours Delivery Date: 07/29/22 Last Updated by: Holley Engle Spont labor, Jeremias GBS, hypospadias, surgery at 3 y.o. Delivery Date: 02/06/25 Last Updated by: Raven Sims LPN Induction post dates/pitocin AROM; placenta delivery notable for trailing membranes Time Spent with Patient Time Spent with Patient: <45 minutes Time was spent: preparing to see the patient(eg.review tests)
== END 2025-02-23 18:15 | disposition home or self-care (01) ==
PROVIDERS: Obstetrics & Gynecology; Admitting Provider Advanced Practice Midwife; PCP Nurse Practitioner Family; Visit Provider Advanced Practice Midwife
DX: O73.1 Retained portions of placenta and membranes, without hemorrhage (principal); O72.2 Delayed and secondary postpartum hemorrhage; M54.50 Low back pain, unspecified; O86.4 Pyrexia of unknown origin following delivery; O99.355 Diseases of the nervous system complicating the puerperium; O99.345 Other mental disorders complicating the puerperium; O99.63 Diseases of the digestive system complicating the puerperium; O99.215 Obesity complicating the puerperium; E66.813 Obesity, class 3; F41.1 Generalized anxiety disorder; G43.009 Migraine without aura, not intractable, without status migrainosus; G57.33 Lesion of lateral popliteal nerve, bilateral lower limbs; R10.2 Pelvic and perineal pain; E78.5 Hyperlipidemia, unspecified; K58.9 Irritable bowel syndrome, unspecified; N39.46 Mixed incontinence
CPT/HCPCS: 36415; 80053; 86850; 86900; 86901; 83605; 85025; G0378; J0737; J1580

== ENCOUNTER 2025-02-24 16:57 | Outpatient (CLI) | payer OTHER, SELFPAY ==
[2025-02-24 15:48] LABS: Abs Immature Grans 0.02 10^3/uL (0.0-0.06); HCT 36.2 % (36.0-46.0); HGB 11.5 g/dL (11.2-15.7); Immature Grans % 0.3 %; MCH 26.2 pg (27.0-33.0); MCHC 31.8 % (32.0-36.0); MCV 83 fL (80-95); MPV 9.9 fL (8.0-11.0); Platelet Count 257 10^3/uL (130-400); RBC 4.39 10^6/uL (3.93-5.22); RDW 14.5 % (11.7-14.6); RDW-SD 43.4 fL; WBC 8.00 10^3/uL (4.4-10.8)
[2025-02-24 16:12] LABS: TSH (W/Ref FT4) 1.19 uIU/mL (0.36-3.74)
== END 2025-02-24 16:58 | disposition home or self-care (01) ==
LOC: LBO 16:58
PROVIDERS: PCP Nurse Practitioner Family; Visit Provider Advanced Practice Midwife
DX: O73.1 Retained portions of placenta and membranes, without hemorrhage (principal)
CPT/HCPCS: 36415; 84443; 85025